=== PATIENT | male | born 1960 | race Caucasian/White ===

== ENCOUNTER 2018-07-07 11:50 | Observation (INO) | payer BC ==
[2018-07-07] MEDS ORDERED: MORPHINE SULFATE 4 MG/ML SYRINGE IVP STA (12:27)
--- NOTE | 2018-07-07 13:23 | ED ---
Lower Extremity Injury HPI <Marcelo Ortega - Last Filed: 07/07/18 14:48> - General Source: patient Mode of arrival: ambulatory Limitations: no limitations <Lucy Burgess - Last Filed: 07/07/18 15:43> - General Chief Complaint: Extremity Injury, Lower Stated Complaint: Ankle injury Time Seen by Provider: 07/07/18 12:20 - History of Present Illness Initial Comments: 58-year-old male past medical history of hypertension presenting today for chief complaint of right ankle pain. Patient states that 2 nights ago he had slipped on ice twisting his right ankle. Patient states he present to the urgent care clinic where x-rays were obtained, he states he was told he had 3 fractures one of his fibula, tibia and talus. Patient states he was told to immediately go to the emergency department for evaluation, patient states he did not want to at that time and went home. Patient was not splinted. Patient states that he decided to presents today for evaluation of ankle. Patient amidst to swelling of the right ankle, patient states she is able to wiggle his toe has full sensation. Patient denies any paleness or coolness of the extremity. Patient denies any injury to his back and neck or head he denies loss of consciousness or head injury. Patient denies any injury to the chest good patient states his main injury was the right ankle. Upon arrival patient is being ambulated via wheel chair, gross deformity of the right ankle. Remaining ROS (-), patient denies any recent fever, chills, shortness of breath , chest pain, back pain, abdominal pain, nausea or vomiting, numbness or tingling, dysuria or hematuria, constipation or diarrhea, headaches or visual changes, or any other complaints. (Lucy Burgess) - Related Data Allergies Allergy/AdvReac Type Severity Reaction Status Date / Time Penicillins Allergy Unknown Verified 07/07/18 11:59 Review of Systems ROS Other: All systems not noted in ROS Statement are negative. <Marcelo Ortega - Last Filed: 07/07/18 14:48> ROS Other: All systems not noted in ROS Statement are negative. <Lucy Burgess - Last Filed: 07/07/18 15:43> ROS Statement: Those systems with pertinent positive or pertinent negative responses have been documented in the HPI. Past Medical History Past Medical History: Hyperlipidemia Additional Past Medical History / Comment(s): 3 cervical compressed vertabrae History of Any Multi-Drug Resistant Organisms: None Reported Past Surgical History: No Surgical Hx Reported, Orthopedic Surgery Past Psychological History: No Psychological Hx Reported Smoking Status: Current every day smoker Past Alcohol Use History: Occasional Past Drug Use History: None Reported <Lucy Burgess - Last Filed: 07/07/18 15:43> General Exam <Marcelo Ortega - Last Filed: 07/07/18 14:48> Limitations: no limitations <Lucy Burgess - Last Filed: 07/07/18 15:43> - General Exam Comments Initial Comments: General: The patient is awake and alert, in no distress, and does not appear acutely ill. Eye: Pupils are equal, round and reactive to light, extra-ocular movements are intact. No nystagmus. There is normal conjunctiva bilaterally. No signs of icterus. Ears, nose, mouth and throat: There are moist mucous membranes and no oral lesions. No midline tenderness to palpation of the cervical, thoracic or lumbar spine there is no paravertebral tenderness. Full ROM at back and neck. Neck: The neck is supple, there is no tenderness or JVD. Cardiovascular: There is a regular rate and rhythm. No murmur, rub or gallop is appreciated. Respiratory: Lungs are clear to auscultation, respirations are non-labored, breath sounds are equal. No wheezes, stridor, rales, or rhonchi. Musculoskeletal: Upon inspection of the right ankle there is significant soft tissue swelling and ecchymosis, gross deformity of the ankle mortise. Small blister of the dorsum of the foot. Patient compartment of compressible history of sensation proximal and distal to injury. Patient is able to wiggle all 5 digits of the right foot. Capillary refill < 2 seconds. Used doppler for pulses , +2 b/l DP strong/brisk, swelling was obscuring the pulse initially of the right foot. Normal ROM, no tenderness of the left ankle. Strength 5/5 of the left ankle, knees and hips b/l. Pain does not appear out of proportion. Neurological: A&O x 3. CN II-XII intact, There are no obvious motor or sensory deficits. Coordination appears grossly intact. Speech is normal. Skin: Skin is warm and dry and no rashes or lesions are noted. Psychiatric: Cooperative, appropriate mood & affect, normal judgment. (Lucy Burgess) Vital Signs 07/07/18 07/07/18 07/07/18 12:00 14:18 14:27 Temperature 98.5 F Pulse Rate 78 68 73 Respiratory 18 16 16 Rate Blood Pressure 129/72 160/83 168/85 O2 Sat by Pulse 98 98 98 Oximetry 07/07/18 07/07/18 07/07/18 14:32 14:37 14:42 Temperature Pulse Rate 80 70 74 Respiratory 16 16 18 Rate Blood Pressure 175/88 166/95 156/90 O2 Sat by Pulse 100 100 100 Oximetry 07/07/18 07/07/18 14:47 15:08 Temperature Pulse Rate 71 75 Respiratory 16 16 Rate Blood Pressure 169/97 166/80 O2 Sat by Pulse 99 99 Oximetry Procedures - Orthopedic Fracture Reduction Fracture #1 Consent Obtained: verbal consent, written consent Side: right Fracture Reduction Location: tibia, fibula Analgesia: procedural sedation Technique: traction/counter-traction Post Reduction X-rays Demonstrate: other (Partial reduction) Post-Reduction Neuro Exam: intact Post-Reduction Vascular Exam: intact Splint Applied: Yes Patient Tolerated Procedure: well, no complications - Orthopedic Splinting/Casting Injury #1 Side: right Upper Extremity Immobilizer: sugar tong splint Lower Extremity Injury Location: short leg - Procedural Sedation Procedural Sedation Start Time: 14:28 Procedural Sedation Stop Time: 14:52 Indications: fracture/dislocation reduction Preparation: electrostatic paint operator applied, pulse oximeter IV Etomidate Dose (mgs): 16 Complications: none Interventions: oxygen applied Patient Tolerated Procedure: well, no complications <Marcelo Ortega - Last Filed: 07/07/18 14:48> Medical Decision Making <Marcelo Ortega - Last Filed: 07/07/18 14:48> <Lucy Burgess - Last Filed: 07/07/18 15:43> - Medical Decision Making 58-year-old male presenting today for ankle pain. There is significant soft tissue swelling. Patient neurovascularly intact. Gross deformity. X-ray revealed distorted ankle mortise as well as a trimalleolar fracture. Pt was consciously sedated by Dr. Ortega and we attempted reduction. Consent obtained prior, wrirten. Post reduction films did not appear sufficient. Minimal improvement. Pt remainded neurovascularly intact. I did contact on-call physician it administrative assistant at [facility]. He reviewed all imaging studies and I discussed physical examination findings as well as history of presenting illness. He then discussed case with Foot and ankle physician . Who recommended closed reduction in the OR by 5:30PM. Pt last ate at 10AM. Anesthesiology was contacted. Patient admitted to the floor pending closed reduction with possible need for external fixation. Patient is aware of procedure, agreeable with plan denied questions at this time. (Lucy Burgess) Disposition <Marcelo Ortega - Last Filed: 07/07/18 14:48> Is patient prescribed a controlled substance at d/c from ED?: No Time of Disposition: 14:46 <Lucy Burgess - Last Filed: 07/07/18 15:43> Clinical Impression: Trimalleolar fracture, Ankle dislocation Disposition: ADMITTED IP TO THIS HOSP
[2018-07-07] MEDS ORDERED: ETOMIDATE 2 MG/ML 10 ML VIAL IVP STA (13:54)
--- NOTE | 2018-07-07 13:59 | XR ---
EXAMINATION TYPE: XR knee complete RT DATE OF EXAM: 07/07/2018 CLINICAL HISTORY: Pain after fall injury. TECHNIQUE: Three views of the right knee are obtained. COMPARISON: None. FINDINGS: There is no acute fracture/dislocation evident in right knee. Mild to moderate tricompartm ent joint space loss is seen most prominent medial tibiofemoral compartment. Increased density suprap atellar bursa is consistent with small joint effusion. IMPRESSION: There is no acute fracture or dislocation in the right knee.
--- NOTE | 2018-07-07 14:01 | XR ---
EXAMINATION TYPE: XR ankle complete RT, XR foot complete RT DATE OF EXAM: 07/07/2018 CLINICAL HISTORY: Fall injury 3 days ago with pain. TECHNIQUE: Frontal, lateral and oblique images of the right ankle and foot are obtained. COMPARISON: None. FINDINGS: There is comminuted displaced fracture through lateral malleolus with posterior angulation and displacement of distal fracture fragment, slight impaction or overriding is seen. Posterior malle olus shows oblique displaced fracture seen best on lateral view. There is displaced fracture through the medial malleolus. There is mortise disruption with lateral tilting of the talus and abnormal medi al widening. Mild to moderate subcutaneous edema is present with more focal soft tissue swelling over lateral malleolus noted. No additional acute fracture or dislocation in right foot is seen. There is mild hallux valgus first metatarsophalangeal joint with mild to moderate joint space loss. There is tiny inferior calcaneal sp ur. Overlying soft tissue is unremarkable. IMPRESSION: There is acute trimalleolar fracture with mortise disruption. (Initial encounter closed type post traumatic fracture)
--- NOTE | 2018-07-07 15:00 | XR ---
EXAMINATION TYPE: XR ankle limited RT DATE OF EXAM: 07/07/2018 COMPARISON: Today HISTORY: Postreduction TECHNIQUE: 3 views. FINDINGS: There is trimalleolar fracture of the right ankle. There is posterior dislocation of the talus on the lateral view. Dislocation is slightly decreased compared to initial exam. IMPRESSION: Slight decrease in the posterior dislocation of the talus. Comminuted posterior trimalleo kristel fracture dislocation of the ankle joint.
[2018-07-07] MEDS ORDERED: HYDROmorphone 1 MG/ML 1 ML SYRINGE IVP STA (15:06)
[2018-07-07] MEDS ORDERED: ONDANSETRON 4 MG/2 ML VIAL IVP PRN (15:24)
[2018-07-07] MEDS ORDERED: NALOXONE 0.4 MG/ML 1 ML VIAL IV PRN (15:24)
[2018-07-07] MEDS ORDERED: MORPHINE SULFATE 4 MG/ML SYRINGE IV PRN (15:24)
[2018-07-07] MEDS ORDERED: SODIUM CHLORIDE 0.9% 1,000 ML IV SCH (15:30)
[2018-07-07] MEDS ORDERED: NICOTINE 21MG/24HR PATCH TRANSDERM STA (15:38)
--- NOTE | 2018-07-07 17:11 | P.HPOR ---
History of Present Illness H&P Date: 07/07/18 The patient is a very pleasant 58-year-old male with a medical history significant being a current every day cigarette smoker who sustained an isolated injury to his right ankle 2 days ago. On evening he slipped on some ice and twisted his ankle. He heard a pop and was unable to ambulate. He went to an urgent care where x-rays were taken and he was told he had an ankle fracture. The patient was advised to go to the emergency department but went home instead without a splint. He presented to our ER earlier today where an attempt was made at a closed reduction and splinting. Postreduction x-rays showed persistent posterior subluxation of the ankle. Orthopedics was called. I met with the patient to discuss options. My recommendation was to take him to the operating room for an attempt at closed reduction and splinting and possibly placement of an external fixator. The patient understands that this is part of a staged procedure. Past Medical History Past Medical History: Hyperlipidemia Additional Past Medical History / Comment(s): 3 cervical compressed vertabrae History of Any Multi-Drug Resistant Organisms: None Reported Past Surgical History: No Surgical Hx Reported, Orthopedic Surgery Past Psychological History: No Psychological Hx Reported Smoking Status: Current every day smoker Past Alcohol Use History: Occasional Past Drug Use History: None Reported Medications and Allergies Home Medications Medication Instructions Recorded Confirmed Type Escitalopram Oxalate [Lexapro] 10 mg PO DAILY 07/07/18 07/07/18 History Fenofibrate 160 mg PO DAILY 07/07/18 07/07/18 History Hydrocodone/Acetaminophen [[place] 1 tab PO Q68H PRN 07/07/18 07/07/18 History 10-325] Morphine Sulfate [Ms Contin] 30 mg PO Q12HR 07/07/18 07/07/18 History Naproxen [Naprosyn] 500 mg PO BID 07/07/18 07/07/18 History Allergies Allergy/AdvReac Type Severity Reaction Status Date / Time Penicillins Allergy Unknown Verified 07/07/18 15:51 Physical Examination The patient is alert and able to answer questions. His head is normocephalic and atraumatic. He demonstrates nonlabored breathing symmetric chest expansion. A focused examination of the right lower extremity was conducted. On inspection there is a splint in place. The tips of the toes are warm and well perfused with brisk capillary refill. Sensation is intact to light touch at the tip of the toes. He is able to actively move his toes up and down. Results X-rays of the right ankle show a displaced bimalleolar ankle fracture dislocation with persistent posterior subluxation of the talus on the postreduction lateral view. Assessment and Plan (1) Trimalleolar fracture Current Visit: Yes Status: Acute Code(s): S82.853A - DISPLACED TRIMALLEOLAR FRACTURE OF UNSP LOWER LEG, INIT SNOMED Code(s): 129684677 Plan: I met with the patient and his to discuss his injury and treatment options. My recommendation was to take him to the operating room for an attempted closed reduction and splinting versus application of an ankle spanning external fixator. The patient and his understand that this will be part of a staged procedure and he will need formal open reduction and internal fixation of his ankle once his soft tissue swelling subsides. Once the ankle is reduced either in a splint or external fixator we will get a computed tomography scan to help with preoperative planning. The patient can discharge home tonight if he is comfortable.
[2018-07-07] MEDS ORDERED: PROPOFOL 10 MG/ML 20 ML VIAL IV ONE (17:19)
[2018-07-07] MEDS ORDERED: fentaNYL (PF) 50 MCG/ML 2 ML AMP ONE (17:19)
[2018-07-07] MEDS ORDERED: MIDAZOLAM 2 MG/2 ML VIAL ONE (17:19)
[2018-07-07] MEDS ORDERED: LIDOCAINE 1% INJ 10MG/ML (20 ML MDV) ONE (17:19)
[2018-07-07] MEDS ORDERED: SUCCINYLCHOLINE CHLORIDE 100 MG/5 ML SYR IV ONE (17:19)
[2018-07-07] MEDS ORDERED: LACTATED RINGERS 1,000 ML IV ONE (17:19)
[2018-07-07] MEDS ORDERED: SILVER sulfADIAZINE Cream 400 GM 1 APPLIC APPLIC TOPICAL ONE (17:35)
--- NOTE | 2018-07-07 17:58 | P.OP ---
Date of Procedure: 07/07/18 Preoperative Diagnosis: 1. Right trimalleolar ankle fracture 2. Current every day cigarette smoker Postoperative Diagnosis: Same Procedure(s) Performed: Closed reduction of trimalleolar ankle fracture and application of short leg splint by physician as part of a staged procedure Anesthesia: ROMAN Surgeon: Hudson Kingsley Estimated Blood Loss (ml): 0 IV fluids (ml): 300 Condition: stable Disposition: PACU Indications for Procedure: The patient is a very pleasant 58-year-old male with a medical history significant for smoking cigarettes who presents 2 days out from a try malleolus ankle fracture dislocation. He underwent attempt at closed reduction in the emergency department. There were unable to obtain and maintain a closed reduction in the splint. The patient was admitted under my care for observation. I met with the patient and his to discuss treatment options. We are going to attempt a closed reduction and splinting versus an external fixator in the operating room. We discussed potential risks and complications of this and they're well aware of all the potential risks and complications. They also understand that this is part of a staged procedure and that he will ultimately need open reduction and internal fixation once his soft tissue swelling resolves. They also understand these at a higher risk of having a complication due to his current cigarette smoking Operative Findings: There was a serous filled fracture blister over the anteromedial aspect of the ankle and tense swelling of the skin. I was able to obtain a concentric reduction and maintain the reduction and a well-molded bulky Ortega splint. Description of Procedure: I met with the patient and his in preoperative holding. We discussed the procedure at length. The patient's right leg was marked with my initials. I reviewed the consent form with the patient and his and all their questions were answered. The patient was then brought back to the operating room. He was transferred onto an or table or an anesthetic was administered. A timeout was performed identifying the correct patient, operative extremity, and procedure. The patient's leg was then taken out of the splint. On inspection there was tense swelling and a serous blister. The serous blister was unroofed and a Silvadene dressing was applied area a gentle closed reduction was performed using the Silvana maneuver. The ankle was easily able to be reduced. A well-padded bulky Ortega splint was placed. A varus mold was applied to the splint as the plaster set along with an anteriorly directed force on the heel. The splint was molded while it set holding the reduction. After the splint had completely set fluoroscopic images were taken verifying that the talus was concentrically reduced under the tibial plafond done both a mortise and lateral view. I was happy with the reduction and did not feel he needed an external fixator. The patient was then transferred back onto a gurney and brought to recovery having to the procedure well. Plan: The patient is going to be transferred back to the floor. I will obtain a computed tomography scan of the ankle both to evaluate the reduction and help with preoperative planning. If the ankle is reduced the patient will be discharged home with instructions for strict elevation and nonweightbearing on his right leg will soft tissue swelling resolves. We'll plan on seeing him back in 1 week for surgical planning. If the ankle is dislocated in the splint he may need return to the operating room for a formal external fixator placement.
[2018-07-07] MEDS: HYDROmorphone 1 MG/ML 1 ML SYRINGE IVP ONE ×2 (18:03→18:09)
[2018-07-07] MEDS ORDERED: KETOROLAC 30 MG/ML 1 ML VIAL IVP ONE (18:09)
[2018-07-07 19:02] VITALS: TEMP 98.5
[2018-07-07 19:04] VITALS: RESP 18
[2018-07-07 19:05] VITALS: BP 153/84; PULSE 72
--- NOTE | 2018-07-07 20:09 | CT ---
CT scan of the right ankle. History ankle fracture. Comparison none. TECHNIQUE: Multiple axial sections were obtained from the distal tibia to the bottom of the calcaneus with no co ntrast. FINDINGS: There is a 2.5 x 1 cm chip fracture of the posterior malleolus without significant displacement. Ther e is comminuted fracture of the medial malleolus without significant displacement. Ankle mortise is a natomic. There is no dislocation. There is comminuted spiral fracture distal fibula. There is mild so ft tissue swelling. The talus appears intact. The subtalar joint appears normal. There is a small lou ntar calcaneal spur. The tarsal bones are intact. Talonavicular joint is intact. IMPRESSION: Comminuted trimalleolar fracture of the ankle. No dislocation. Soft tissue swelling.
--- NOTE | 2018-07-08 13:22 | XR ---
EXAMINATION TYPE: XR ankle limited RT, [place] guidance operating room DATE OF EXAM: 07/07/2018 COMPARISON: NONE HISTORY: 58-year-old male closed reduction right ankle FINDINGS: AP and lateral intraoperative views with overlying cast of the right ankle fractures. FLUOROSCOPY Fluoroscopy time of 11 seconds was used during closed reduction of ankle fractures. 2 image/s docume nt/s the procedure. IMPRESSION: Intraoperative fluoroscopy as above during closed reduction.
== END 2018-07-07 20:20 | disposition home or self-care (01) ==
LOC: EC 11:50 → 4SSUR 15:17
PROVIDERS: ADMIT Orthopaedic Surgery; ATTEND Orthopaedic Surgery
DX: S82.851A Displaced trimalleolar fracture of right lower leg, initial encounter for closed fracture (principal); F17.210 Nicotine dependence, cigarettes, uncomplicated; E78.5 Hyperlipidemia, unspecified; I10 Essential (primary) hypertension; W00.0XXA Fall on same level due to ice and snow, initial encounter; X50.1XXA Overexertion from prolonged static or awkward postures, initial encounter; Z79.899 Other long term (current) drug therapy; Z88.0 Allergy status to penicillin
CPT/HCPCS: 96374; 96375; 99285; 73562; 73600; 73610; 73630; 73700; 27818; G0378; S4990; J2250; J2270; J2001; J3010; J1885; J1170; J0330; J2704

== ENCOUNTER 2018-08-01 12:35 | Day surgery (SDC) | payer BC ==
[~2018-08-01 12:35] MED LIST: CLINDAMYCIN 900 MG in DEXTROSE 5% IN WATER 50 ML IVPB ONE
[2018-08-01] MEDS ORDERED: LACTATED RINGERS 1,000 ML IV ONE ×3 (13:22→18:16)
[2018-08-01] MEDS ORDERED: LIDOCAINE 1% 20 ML VIAL (10MG/ML) FOR IV START INTRADERMA ONE (13:23)
[2018-08-01] MEDS ORDERED: ONDANSETRON 4 MG/2 ML VIAL IVP ONE (13:25)
[2018-08-01] MEDS ORDERED: DEXAMETHASONE SOD PHOS (MDV) 100 MG/10 ML VIAL IVP ONE (13:26)
[2018-08-01] MEDS ORDERED: MIDAZOLAM 2 MG/2 ML VIAL IVP ONE (14:14)
[2018-08-01] MEDS ORDERED: fentaNYL (PF) 50 MCG/ML 2 ML AMP IVP ONE (14:14)
[2018-08-01] MEDS ORDERED: ROPIVACAINE 5 MG/ML 30 ML VIAL ONE (16:05)
[2018-08-01] MEDS ORDERED: fentaNYL (PF) 50 MCG/ML 2 ML AMP ONE (16:05)
[2018-08-01] MEDS ORDERED: PROPOFOL 10 MG/ML 20 ML VIAL IV ONE (16:05)
[2018-08-01] MEDS ORDERED: LIDOCAINE 1% INJ 10MG/ML (20 ML MDV) ONE (16:05)
[2018-08-01] MEDS ORDERED: MIDAZOLAM 2 MG/2 ML VIAL ONE (16:05)
[2018-08-01] MEDS ORDERED: NALOXONE 0.4 MG/ML 1 ML VIAL IV PRN (17:29)
[2018-08-01] MEDS ORDERED: HYDROmorphone 1 MG/ML 1 ML SYRINGE IVP PRN (17:29)
[2018-08-01] MEDS ORDERED: MAGNESIUM HYDROXIDE 2,400 MG/10 ML CUP PO PRN (17:29)
--- NOTE | 2018-08-01 17:42 | P.OP ---
Date of Procedure: 08/01/18 Preoperative Diagnosis: 1. Closed right trimalleolar ankle fracture dislocation 2. Current every day cigarette smoker 3. Chronic pain control issue currently on long-term narcotic use Postoperative Diagnosis: Same Procedure(s) Performed: 1. Open reduction and internal fixation of right lateral malleolus, nonoperative management of right posterior and medial malleolus fractures 2. Open reduction internal fixation of right ankle syndesmosis 3. Manual application of joint stress radiography by physician, right ankle 4. Application of short-leg splint by physician, right ankle Anesthesia: ROMAN Surgeon: Hudson Kingsley Fitness Supervisor #1: Twin Arvizu Estimated Blood Loss (ml): 25 IV fluids (ml): 1,200 Pathology: none sent Condition: stable Disposition: PACU Indications for Procedure: The patient is very pleasant 58-year-old male with a medical history significant for being a current every day cigarette smoker and having chronic narcotic pain requirements who was seen in the ER several weeks ago with an ankle fracture dislocation. He was taken to the operating room where a closed reduction and splint was applied. He followed up in the office and we discussed the need for operative treatment. We discussed the potential risks and complications of an ankle open reduction internal fixation including but not limited to risk of anesthesia, superficial infection, deep infection, delayed wound healing, nonunion of his fractures, malunion of his fractures, hardware failure, postoperative displacement of the ankle mortise, chronic pain, chronic swelling, and inability to regain preinjury level of function, DVT, PE, posttraumatic ankle arthritis, symptomatically hardware, and possibly loss of life or limb. The patient voiced his understanding of these potential complications and also acknowledged that he is at a much higher risk of having a complication due to his cigarette smoking. He was strongly encouraged to quit smoking. The patient was seen preoperatively and had both medical and cardiac clearance. The patient provided his verbal and written consent to go forward with surgery. Description of Procedure: The patient was identified in preoperative holding and the correct right ankles marked with my initials. I reviewed the consent form with the patient and his and all the questions were answered. The patient was given a popliteal and saphenous nerve block by anesthesia. He was then brought back to the operating room. He was positioned on the OR table where general anesthetic and preoperative antibiotics were administered. The right splint was taken down. There was wrinkling of the skin and complete resolution of the fracture blisters. A tourniquet was applied proximal aspect of the right leg. All bony prominences well-padded. A bump was placed under the right buttock to internally rotate the leg. A ramp was placed under the right leg to facilitate imaging. The right leg was then prepped and draped in standard sterile fashion. Prior to starting surgery timeout was performed identifying the correct patient, operative extremity, and procedure. The patient's leg was then elevated, exsanguinated with an Esmarch bandage, and the tourniquet was inflated to 250 mmHg. Next I began by outlining a straight lateral incision to the distal fibula. Skin incision with a scalpel and dissection was carried down carefully through subcu tissues tissue with tenotomy scissors. The periosteum and fascia over the peroneal muscles and distal fibula was sharply elevated with a scalpel. The fracture was immediately identified. There was early callus was sharply debrided with a scalpel. Proximally there was comminution of the distal fragments proximal spike. Once the fracture site was thoroughly debrided a gentle reduction was performed and a [id number] reduction clamp was used to mancia the fracture reduced. Clinically the fracture appeared to be anatomically reduced. Fluoroscopy was used to visualize the reduction. The fibula appeared to be out to length. I then placed a nonlocking 2.7 mm lag screw across the fracture generating excellent compression. I then contoured a distal fibular locking plate over the fibula. A nonlocking 3.5 mm screw was placed just proximal to the fracture bringing the plate down to bone. I then proceeded to place a second nonlocking 3.5 mm screw in the most proximal hole of the plate centering it on the distal fibula. Attention was then turned distally. A nonlocking 4.0 mm cancellous screws placed in the distal cluster of holes bringing the plate down to bone. I then proceeded to place an additional four locking 3.5 mm screws distally. A final nonlocking 3.5 mm screw was placed proximal to the fracture. Fluoroscopy visualized reduction of the fibula and placement of the hardware. At this point I elected not to proceed with open reduction internal fixation of the medial malleolus due to the significant amount of comminution seen on the preoperative CT and the minimal amount of displacement on intraoperative fluoroscopy as well as the patient's cigarette smoking and potential for delayed wound healing. The ankle mortise appeared anatomic. At this point I performed a manual external rotation stress x-ray and the ankle appeared stable. I elected to place a 4.0 mm syndesmotic screw for additional fixation due to the patient's age and cigarette smoking. A 2.[address] ill bit was used to create a path for a fully threaded, solid 4.0 mm cortical screw. At this point final fluoroscopic images were taken including a mortise view, manual external rotation stress x-ray, and nature talar dome overlap lateral. The ankle mortise appeared anatomically reduced on all views. The wounds were then copiously irrigated and closed in layers. I verified that all instrument, sponge, and sharp counts were correct. A sterile dressing consisting of Betadine Adaptic, 4 x 4, and web roll was applied. The drapes were taken down and a well-padded bulky Ortega splint was placed at the ankle in neutral. The patient was awoken from his anesthetic, transferred to a gurney, and brought to recovery having to the procedure well. Twin Arvizu PA-C was required as a skilled respiratory care assistant for patient positioning, surgical exposure, retraction, reduction of fracture, closure of wound, and application of splint. Plan: The patient was given the option of staying overnight due to his chronic narcotic dependence and likely need for pain control. The patient is comfortable and like to discharge home he was also given discharge instructions and I'm okay with him leaving tonight. His rate strictly nonweightbearing on his right leg. He is to use crutches or knee scooter to ambulate. He will follow-up in the office in 2 weeks for splint removal and nonweightbearing x- rays of the ankle out of the splint.
[2018-08-01] MEDS ORDERED: HYDROmorphone 1 MG/ML 1 ML SYRINGE IVP ONE ×4 (17:54→18:15)
[2018-08-01 19:13] VITALS: BMI 25.7
[2018-08-01] MEDS: HYDROcodone/APAP 10-325MG 1 EACH TAB PO PRN (21:39)
[2018-08-01] MEDS: SODIUM CHLORIDE 0.9% 1,000 ML IV SCH (22:23)
[2018-08-01] MEDS: NICOTINE 21MG/24HR PATCH TRANSDERM SCH (22:23)
[2018-08-01] MEDS: MORPHINE SULFATE ER 30 MG TABLET PO SCH (23:14)
[2018-08-01] MEDS: ceFAZolin IN SWFI 2 GM/20 ML SYRINGE IVP SCH (23:25)
[2018-08-02] MEDS ORDERED: ceFAZolin IN SWFI 2 GM/20 ML SYRINGE IVP SCH
[2018-08-02] MEDS: SODIUM CHLORIDE 0.9% 1,000 ML IV SCH (03:30)
[2018-08-02] MEDS: HYDROcodone/APAP 10-325MG 1 EACH TAB PO PRN ×2 (03:44→07:22)
[2018-08-02 07:45] VITALS: BP 146/81; PULSE 68; RESP 14; TEMP 98.5
[2018-08-02] MEDS: MORPHINE SULFATE ER 30 MG TABLET PO SCH (08:33)
[2018-08-02] MEDS: NICOTINE 21MG/24HR PATCH TRANSDERM SCH (08:34)
[2018-08-02] MEDS: ceFAZolin IN SWFI 2 GM/20 ML SYRINGE IVP SCH (08:34)
--- NOTE | 2018-08-02 08:54 | FL ---
EXAMINATION TYPE: FL guidance operating room DATE OF EXAM: 08/01/2018 HISTORY: Flouroscopy time 29 seconds of fluoroscopy provided. IMPRESSION: 1. Fluoroscopy time.
--- NOTE | 2018-08-02 08:54 | XR ---
EXAMINATION TYPE: XR ankle limited RT DATE OF EXAM: 08/01/2018 COMPARISON: NONE TECHNIQUE: Two views submitted HISTORY: Post op FINDINGS: There is postsurgical change in near anatomic alignment. There is soft tissue edema and emphysema. IMPRESSION: 1. Postoperative change. Appears in near-anatomic alignment
[2018-08-02] MEDS ORDERED: ENOXAPARIN 30 MG/0.3 ML SYRINGE SQ SCH (09:00)
[2018-08-02] MEDS ORDERED: MULTIVITAMINS, THERA 1 EACH TAB PO SCH (12:00)
--- NOTE | 2018-08-02 17:47 | P.DS ---
Providers Expected date of discharge: 08/02/18 Attending physician: Hudson Kingsley Primary care physician: Jamel De León [facility] Course: The patient is a 58-year-old male with a medical history significant for being a current every day cigarette smoker and having chronic narcotic pain requirements who was seen in the ER several weeks ago with an ankle fracture dislocation. He was taken to the operating room where a closed reduction and splint was applied by Dr. Kingsley. He followed up in our office and and the decision was made to move forward with operative treatment. The patient underwent an open reduction and internal fixation of right lateral malleolus, with nonoperative management of right posterior and medial malleolus fractures, on 08/01/[address] Kingsley. The procedure was performed without complication or sequelae. The patient is doing fairly well postoperatively. Vital signs stable on postoperative day #1. The patient was given the option of being discharged following the procedure, or being admitted for pain control. The patient was admitted overnight for pain control, and was subsequently discharged this morning before an examination was performed. Per nursing, the patient had been up with therapy with no issues. His pain is well-controlled. There was a small amount of blood on his splint overnight, nursing applied a new KAVEH banadge overnight with no additional saturation. Patient is discharged home in good condition. Patient will follow-up with Dr. Kingsley in the office in 2 weeks. Please see med rec for accurate list of discharge medication. Patient Condition at Discharge: Fair Plan - Discharge Summary Discharge Rx Participant: No New Discharge Prescriptions: New Hydrocodone/Acetaminophen [[place] 10-325] 1 tab PO Q4H PRN 14 Days #40 tab PRN Reason: Pain oxyCODONE HCL/ACETAMINOPHEN [Percocet 5-325 mg] 1 tab PO Q4HR PRN 3 Days #18 tab PRN Reason: Pain Aspirin 325 mg PO BID 28 Days tab No Action Hydrocodone/Acetaminophen [[place] 10-325] 1 tab PO Q68H PRN PRN Reason: Pain Fenofibrate 160 mg PO DAILY Naproxen [Naprosyn] 500 mg PO BID Morphine Sulfate [Ms Contin] 30 mg PO Q12HR Escitalopram Oxalate [Lexapro] 10 mg PO DAILY Discharge Medication List Escitalopram Oxalate [Lexapro] 10 mg PO DAILY 07/07/18 [History] Fenofibrate 160 mg PO DAILY 07/07/18 [History] Hydrocodone/Acetaminophen [[place] 10-325] 1 tab PO Q68H PRN 07/07/18 [History] Morphine Sulfate [Ms Contin] 30 mg PO Q12HR 07/07/18 [History] Naproxen [Naprosyn] 500 mg PO BID 07/07/18 [History] Aspirin 325 mg PO BID 28 Days tab 08/01/18 [Rx] Hydrocodone/Acetaminophen [[place] 10-325] 1 tab PO Q4H PRN 14 Days #40 tab 08/01/18 [Rx] oxyCODONE HCL/ACETAMINOPHEN [Percocet 5-325 mg] 1 tab PO Q4HR PRN 3 Days #18 tab 08/01/18 [Rx] Follow up Appointment(s)/Referral(s): Jamel Rg MD [Primary Care Provider] - 1 Week (Please call office ) Hudson Kingsley MD [Medical Doctor] - 08/16/18 2:30 pm Patient Instructions/Handouts: ORIF of an Ankle Fracture (DC) Activity/Diet/Wound Care/Special Instructions: 1. No weightbearing on his operative extremity 2. Use crutches or knee scooter to ambulate 3. Do not remove splint 4. keep splint clean and dry 5. Ice and elevate your operative leg 6. Take pain medications as prescribed 7. Take a stool softener and drink lots of water while taking narcotic pain medications 8. Take an aspirin 325 mg twice a day to lower your risk of blood clot 9. Follow-up in the office in 14 days Discharge Disposition: HOME SELF-CARE
== END 2018-08-02 11:05 | disposition home or self-care (01) ==
LOC: OR 12:35 → 4SSUR 18:10 → OR 08-02 11:05
PROVIDERS: ATTEND Orthopaedic Surgery
DX: S82.851A Displaced trimalleolar fracture of right lower leg, initial encounter for closed fracture (principal); F17.210 Nicotine dependence, cigarettes, uncomplicated; G89.29 Other chronic pain; Z79.82 Long term (current) use of aspirin; Z79.891 Long term (current) use of opiate analgesic
CPT/HCPCS: 27822; 27829; 97161; 73600; C1713; S4990 ×2; J2250; J2405; J2001; J3010; J1650; J1170 ×2; J1100; J2795; J2704; J0690 ×2; 64493

== ENCOUNTER 2019-12-18 17:18 | Emergency (ER) | payer BC ==
[2019-12-18 17:26] VITALS: TEMP 99.1
[2019-12-18] MEDS ORDERED: SODIUM CHLORIDE 0.9% 1,000 ML IV STA (17:39)
[2019-12-18] MEDS ORDERED: MAG HYDROX/AL HYDROX/SIMETH 30 ML, HYOSCYAMINE ELIXIR 10 ML PO STA ×2 (17:39)
--- NOTE | 2019-12-18 18:04 | ED ---
Abdominal Pain HPI - General Chief Complaint: Abdominal Pain Stated Complaint: abd pain/swelling Time Seen by Provider: 12/18/19 17:36 Source: patient, RN notes reviewed Mode of arrival: ambulatory Limitations: no limitations - History of Present Illness Initial Comments: This is a 59-year-old male presents emergency Department from senior care for evaluation of abdominal pain. He's been having increasing left-sided abdominal pain. Patient denies any vomiting states that some slight nausea and reflux. Denies any chest pain or shortness of breath. No diarrhea no constipation. He's had no prior abdominal surgeries. Patient has no dysuria no hematuria. Patient states nothing really makes his pain feel better or worse at this time. - Related Data Home Medications Medication Instructions Recorded Confirmed Escitalopram Oxalate [Lexapro] 10 mg PO DAILY 07/07/18 08/01/18 Fenofibrate 160 mg PO DAILY 07/07/18 08/01/18 Hydrocodone/Acetaminophen [[place] 1 tab PO Q68H PRN 07/07/18 08/01/18 10-325] Morphine Sulfate [Ms Contin] 30 mg PO Q12HR 07/07/18 08/01/18 Naproxen [Naprosyn] 500 mg PO BID 07/07/18 08/01/18 Previous Rx's Medication Instructions Recorded Aspirin 325 mg PO BID 28 Days tab 08/01/18 Hydrocodone/Acetaminophen [[place] 1 tab PO Q4H PRN 14 Days #40 tab 08/01/18 10-325] oxyCODONE HCL/ACETAMINOPHEN 1 tab PO Q4HR PRN 3 Days #18 tab 08/01/18 [Percocet 5-325 mg] Omeprazole [PriLOSEC] 40 mg PO DAILY #14 cap 12/18/19 Allergies Allergy/AdvReac Type Severity Reaction Status Date / Time Penicillins Allergy Unknown Verified 12/18/19 17:23 Review of Systems ROS Statement: Those systems with pertinent positive or pertinent negative responses have been documented in the HPI. ROS Other: All systems not noted in ROS Statement are negative. Past Medical History Past Medical History: Hyperlipidemia Additional Past Medical History / Comment(s): 3 cervical compressed vertabrae History of Any Multi-Drug Resistant Organisms: None Reported Past Surgical History: Orthopedic Surgery Additional Past Surgical History / Comment(s): orif right ankle Past Anesthesia/Blood Transfusion Reactions: No Reported Reaction Past Psychological History: No Psychological Hx Reported Smoking Status: Current every day smoker Past Alcohol Use History: Occasional Past Drug Use History: None Reported - Past Family History Mother Family Medical History: Cancer Additional Family Medical History / Comment(s): from colon cancer Father Additional Family Medical History / Comment(s): heart problems when was young General Exam Limitations: no limitations General appearance: alert, in no apparent distress Head exam: Present: atraumatic, normocephalic, normal inspection Eye exam: Present: normal appearance, PERRL, EOMI. Absent: scleral icterus, conjunctival injection, periorbital swelling Respiratory exam: Present: normal lung sounds bilaterally. Absent: respiratory distress, wheezes, rales, rhonchi, stridor Cardiovascular Exam: Present: regular rate, normal rhythm, normal heart sounds. Absent: systolic murmur, diastolic murmur, rubs, gallop, clicks GI/Abdominal exam: Present: soft, tenderness (Mild epigastric to left upper quadrant tenderness), normal bowel sounds. Absent: distended, guarding, rebound, rigid Back exam: Absent: CVA tenderness (R), CVA tenderness (L) Neurological exam: Present: alert, oriented X3 Skin exam: Present: warm, dry, intact, normal color. Absent: rash Course Vital Signs 12/18/19 12/18/19 17:23 19:03 Temperature 99.1 F Pulse Rate 85 63 Respiratory 16 17 Rate Blood Pressure 160/90 176/90 O2 Sat by Pulse 99 97 Oximetry Medical Decision Making - Medical Decision Making Patient has mild pancreatitis on labs CT is obtained has no history of sig nificant findings. Patient does feel improved after GI cocktail. 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 Patient will follow up outpatient - Lab Data Result diagrams: 12/18/19 17:46 12/18/19 17:46 Lab Results 12/18/19 12/18/19 12/18/19 Range/Units 17:46 17:46 17:46 WBC 8.4 (3.8-10.6) k/uL RBC 3.68 L (4.30-5.90) m/uL Hgb 12.3 L (13.0-17.5) gm/dL Hct 37.8 L (39.0-53.0) % MCV 102.8 H (80.0-100.0) fL MCH 33.4 (25.0-35.0) pg MCHC 32.5 (31.0-37.0) g/dL RDW 12.4 (11.5-15.5) % Plt Count 341 (150-450) k/uL Neutrophils % 55 % Lymphocytes % 29 % Monocytes % 8 % Eosinophils % 4 % Basophils % 1 % Neutrophils # 4.6 (1.3-7.7) k/uL Lymphocytes # 2.4 (1.0-4.8) k/uL Monocytes # 0.7 (0-1.0) k/uL Eosinophils # 0.4 (0-0.7) k/uL Basophils # 0.1 (0-0.2) k/uL Macrocytosis Slight Sodium 138 (137-145) mmol/L Potassium 4.2 (3.5-5.1) mmol/L Chloride 109 H (98-107) mmol/L Carbon Dioxide 22 (22-30) mmol/L Anion Gap 7 mmol/L BUN 5 L (9-20) mg/dL Creatinine 0.74 (0.66-1.25) mg/dL Est GFR (CKD-EPI)AfAm >90 (>60 ml/min/1.73 sqM) Est GFR (CKD-EPI)NonAf >90 (>60 ml/min/1.73 sqM) Glucose 112 H (74-99) mg/dL Calcium 10.3 H (8.4-10.2) mg/dL Total Bilirubin 0.2 (0.2-1.3) mg/dL AST 31 (17-59) U/L ALT 52 H (4-49) U/L Alkaline Phosphatase 126 (38-126) U/L Total Protein 6.8 (6.3-8.2) g/dL Albumin 4.3 (3.5-5.0) g/dL Amylase 80 (30-110) U/L Lipase 405 H (23-300) U/L Urine Color Light Yellow Urine Appearance Clear (Clear) Urine pH 7.0 (5.0-8.0) Ur Specific [place] 1.008 (1.001-1.035) Urine Protein Negative (Negative) Urine Glucose (UA) Negative (Negative) Urine Ketones Negative (Negative) Urine Blood Negative (Negative) Urine Nitrite Negative (Negative) Urine Bilirubin Negative (Negative) Urine Urobilinogen <2.0 (<2.0) mg/dL Ur Leukocyte Esterase Negative (Negative) Disposition Clinical Impression: Abdominal pain, Pancreatitis, Gastritis Disposition: HOME SELF-CARE Condition: Stable Instructions (If sedation given, give patient instructions): Abdominal Pain (ED) Additional Instructions: Please return to the Emergency Department if symptoms worsen or any other concerns. Prescriptions: Omeprazole [PriLOSEC] 40 mg PO DAILY #14 cap Is patient prescribed a controlled substance at d/c from ED?: No Referrals: Jamel Rg MD [Primary Care Provider] - 1-2 days Time of Disposition: 20:05
[2019-12-18 18:13] LABS: ALT 52 U/L (4-49); AST 31 U/L (17-59); African American GFR (CKD) >90 (>60 ml/min/1.73 sqM); Albumin 4.3 g/dL (3.5-5.0); Alkaline Phosphatase 126 U/L (38-126); Amylase 80 U/L (30-110); Anion Gap 7 mmol/L; Blood Urea Nitrogen 5 mg/dL (9-20); Calcium 10.3 mg/dL (8.4-10.2); Carbon Dioxide 22 mmol/L (22-30); Chloride 109 mmol/L (98-107); Glucose 112 mg/dL (74-99); Non-African American GFR(CKD) >90 (>60 ml/min/1.73 sqM); Potassium 4.2 mmol/L (3.5-5.1); Sodium 138 mmol/L (137-145); Total Bilirubin 0.2 mg/dL (0.2-1.3); Total Protein 6.8 g/dL (6.3-8.2)
--- NOTE | 2019-12-18 18:22 | XR ---
EXAMINATION TYPE: XR KUB DATE OF EXAM: 12/18/2019 6:07 PM CLINICAL HISTORY: Left upper abdominal pain and bloating for 3 days. TECHNIQUE: Two Upright KUB images of the abdomen are obtained. COMPARISON: None. FINDINGS: Scattered gas is seen in non-distended stomach and small bowel loops. Gas and fecal materia l is seen in non-distended colon. There is no visceromegaly, pneumoperitoneum, or abnormal calcificat ion appreciated. The lung bases are clear. Multilevel spurring in the lumbar spine. Moderate to sever e axial joint space loss in both hips. IMPRESSION: Overall nonobstructive bowel gas pattern.
[2019-12-18 18:24] LABS: Basophils # (A) 0.1 k/uL (0-0.2); Basophils % (A) 1 %; Eosinophils # (A) 0.4 k/uL (0-0.7); Eosinophils % (A) 4 %; HCT 37.8 % (39.0-53.0); HGB 12.3 gm/dL (13.0-17.5); Lymphocytes # (A) 2.4 k/uL (1.0-4.8); Lymphocytes % (A) 29 %; MCH 33.4 pg (25.0-35.0); MCHC 32.5 g/dL (31.0-37.0); MCV 102.8 fL (80.0-100.0); Macrocytosis Slight; Monocytes # (A) 0.7 k/uL (0-1.0); Monocytes % (A) 8 %; Neutrophils # (A) 4.6 k/uL (1.3-7.7); Neutrophils % (A) 55 %; Platelet Count 341 k/uL (150-450); RBC 3.68 m/uL (4.30-5.90); RDW 12.4 % (11.5-15.5); WBC 8.4 k/uL (3.8-10.6)
[2019-12-18 18:31] LABS: Appearance,Urine Clear (Clear); Bilirubin,Urine Negative (Negative); Blood,Urine Negative (Negative); Color,Urine Light Yellow; Glucose,Urine (UA) Negative (Negative); Ketones,Urine Negative (Negative); Leukocyte Esterase,Urine Negative (Negative); Nitrite,Urine Negative (Negative); Protein,Urine Negative (Negative); Specific Gravity,Urine 1.008 (1.001-1.035); Urobilinogen,Urine <2.0 mg/dL (<2.0)
[2019-12-18 19:04] VITALS: BP 176/90; PULSE 63; RESP 17
--- NOTE | 2019-12-18 19:39 | CT ---
EXAMINATION TYPE: CT abdomen pelvis w con DATE OF EXAM: 12/18/2019 COMPARISON: None. HISTORY: Left upper quadrant pain and bulge. CT DLP: 1364.1 mGycm, Automated Exposure Control for Dose Reduction was Utilized. CONTRAST: CT scan of the abdomen and pelvis is performed with oral and with IV Contrast, patient injected with 100 mL of Isovue 300. FINDINGS: LUNG BASES: Dependent atelectasis bilateral bases. Mild cardiomegaly. LIVER/GB: Contracted gallbladder. PANCREAS: No significant abnormality is seen. SPLEEN: No significant abnormality is seen. ADRENALS: No significant abnormality is seen. KIDNEYS: Symmetric cortical medullary uptake and excretion without hydronephrosis seen bilaterally. U rinary bladder within normal limits. Few scattered pelvic phleboliths. BOWEL: Suboptimal evaluation without enteric contrast. No suspicious small or large bowel dilatation. A few scattered colonic diverticula greatest in the sigmoid colon without CT evidence for acute dive rticulitis. Normal-appearing appendix from the cecum in the right lower quadrant. PROSTATE/SEMINAL VESICLES: No gross abnormality seen. LYMPH NODES: No greater than 1cm abdominal or pelvic lymph nodes are appreciated. OSSEOUS STRUCTURES: Hemangioma involving the L4 vertebra. [id number] multilevel anterior and la teral spurring. Facet arthropathy lower lumbar spine. Moderate to severe narrowing with flattening of femoral head in both hips. OTHER: No suspicious ventral wall hernia defect. No concerning mass or fluid collection in the left a nterior abdomen. Moderate mixed plaque of the aorta extending into branch vessels. Significant narrowing at origin of celiac artery sagittal image 82. Correlate for celiac artery compression syndrome. IMPRESSION: No significant acute finding is seen to account for patient's clinical symptoms. 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 Advise nonemerg ent surgical referral .
== END 2019-12-18 20:15 | disposition home or self-care (01) ==
LOC: EC 17:18
DX: K85.90 Acute pancreatitis without necrosis or infection, unspecified (principal); K29.70 Gastritis, unspecified, without bleeding; E78.5 Hyperlipidemia, unspecified; F17.200 Nicotine dependence, unspecified, uncomplicated; Z79.899 Other long term (current) drug therapy; Z88.0 Allergy status to penicillin
CPT/HCPCS: 36415; 80053; 82150; 83690; 85025; 81003; 74018; 74177; 99284; 96360; 96361; Q9967

== ENCOUNTER → 2022-09-02 | Outpatient (CLI) | payer BC ==
--- NOTE | 2022-09-02 10:42 | CTL ---
EXAMINATION TYPE: CT Low Dose Lung DATE OF EXAM ORDERED: 09/02/2022 HISTORY: . Lung cancer screening CT DLP: 96.[address] CTDI: 2.60 mGy Automated exposure control for dose reduction was used. SCREENING VISIT: COMPARISON: None TECHNIQUE: Low dose computed tomography scan was performed through the chest at 1 mm thick sections a nd reconstructed images in multiple planes at 1 mm and [address] DIAGNOSTIC QUALITY: Satisfactory FINDINGS: There is a 2 mm nodule in the right upper lobe axial image 161 There is a 2 mm nodule in the subpleural right upper lobe axial image 191. Biapical pleural thickening with groundglass changes seen involving the posterior lung bases are felt to be most likely on the basis of respiratory atelectasis. No focal pneumonia, pleural effusion or p neumothorax. There is a coronary artery stent. Aorta of normal caliber with mild atherosclerotic changes. Heart si ze normal. Hyperinflation suggests COPD. IMPRESSION: 1. COPD was sub-5 mm pulmonary nodules which have a benign appearance. CT LUNG RAD AND CT CHEST RECOMMENDATION: Lung-Rad 2 Benign Appearance or Behavior: Continue annual sc reening with LDCT in 12 months.
== END | disposition home or self-care (01) ==
LOC: RADCTMAIN 09:23
PROVIDERS: ATTEND Family Medicine
DX: Z12.2 Encounter for screening for malignant neoplasm of respiratory organs (principal); J44.9 Chronic obstructive pulmonary disease, unspecified; R91.8 Other nonspecific abnormal finding of lung field; F17.210 Nicotine dependence, cigarettes, uncomplicated
CPT/HCPCS: 71271

== ENCOUNTER 2023-07-22 10:49 | Emergency (ER) | payer BC ==
[2023-07-22 11:30] VITALS: TEMP 98.7
--- NOTE | 2023-07-22 11:33 | ED ---
Weakness HPI - General Chief complaint: Weakness Stated complaint: Dehydration, Tonsil CA PT Time Seen by Provider: 07/22/23 11:02 Source: patient, family, RN notes reviewed Mode of arrival: ambulatory Limitations: no limitations - History of Present Illness Initial comments: 63-year-old male presents emergency department with chief complaint of weakness. 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 Jennings. Patient states he has had biopsies but no other surgeries. Patient has been receiving chemotherapy and radiation. He was unable to complete his chemotherapy last Monday because his weakness this was possibly his last round. Patient states that he cannot keep his medications down he has been vomiting states he has whitish to clear phlegm. He states the pain has worsened. He states his blood pressure has been low and has been super weak feeling. Denies any reports of fever. - Related Data Home Medications Medication Instructions Recorded Confirmed Escitalopram Oxalate [Lexapro] 10 mg PO DAILY 07/07/18 07/14/23 Morphine Sulfate [Ms Contin] 30 mg PO Q12HR 07/07/18 07/14/23 Naproxen [Naprosyn] 500 mg PO BID PRN 07/07/18 07/14/23 Atorvastatin [Lipitor] 1 tab PO DAILY 05/23/23 07/14/23 Ezetimibe [Zetia] 1 tab PO DAILY 05/23/23 07/14/23 HYDROcodone/APAP 7.5-325MG [[place] 1 tab PO DIRECTED PRN 05/23/23 07/14/23 7.5-325] Metoprolol Succinate [Metoprolol 1 tab PO DAILY 05/23/23 07/14/23 Succinate ER] Ondansetron [Zofran] 1 tab PO DIRECTED PRN 05/23/23 07/14/23 gemfibroziL [Lopid] 1 tab PO BID 05/23/23 07/14/23 lisinopriL [Zestril] 1 tab PO DAILY 05/23/23 07/14/23 Previous Rx's Medication Instructions Recorded Aspirin 325 mg PO BID 28 Days tab 08/01/18 Omeprazole [PriLOSEC] 40 mg PO DAILY #14 cap 12/18/19 Azithromycin [Zithromax Z Pack] 0 tab PO DIRECTED #6 tab 07/22/23 Allergies Allergy/AdvReac Type Severity Reaction Status Date / Time Penicillins Allergy Unknown Verified 07/22/23 11:00 Review of Systems ROS Statement: Those systems with pertinent positive or pertinent negative responses have been documented in the HPI. ROS Other: All systems not noted in ROS Statement are negative. Past Medical History Past Medical History: Coronary Artery Disease (CAD), Cancer, COPD, Hyperlipidemia Additional Past Medical History / Comment(s): 3 cervical compressed vertabrae,LEFT GROIN HERNIA WITH SEVERE GROIN AND LEG PAIN, tonsil ca History of Any Multi-Drug Resistant Organisms: None Reported Past Surgical History: Orthopedic Surgery Additional Past Surgical History / Comment(s): orif right ankle,KNEE SURGERY ,CARDIAC STENTS Past Anesthesia/Blood Transfusion Reactions: No Reported Reaction Past Psychological History: Anxiety Smoking Status: Current every day smoker - Past Family History Mother Family Medical History: Cancer Additional Family Medical History / Comment(s): from colon cancer Father Additional Family Medical History / Comment(s): heart problems when was young General Exam Limitations: no limitations General appearance: alert, in no apparent distress Head exam: Present: atraumatic, normocephalic, normal inspection Eye exam: Present: normal appearance, PERRL, EOMI. Absent: scleral icterus, conjunctival injection, periorbital swelling ENT exam: Present: mucous membranes moist. Absent: normal oropharynx (Mass, swelling of the left tonsillar region there is some bloody tissue noted) Neck exam: Present: normal inspection, full ROM. Absent: tenderness, meningismus, lymphadenopathy Respiratory exam: Present: normal lung sounds bilaterally. Absent: respiratory distress, wheezes, rales, rhonchi, stridor Cardiovascular Exam: Present: normal rhythm, tachycardia, normal heart sounds. Absent: systolic murmur, diastolic murmur, rubs, gallop, clicks GI/Abdominal exam: Present: soft, normal bowel sounds. Absent: distended, tenderness, guarding, rebound, rigid Neurological exam: Present: alert, oriented X3 Course Vital Signs 07/22/23 07/22/23 07/22/23 10:58 12:45 13:33 Temperature 98.7 F Pulse Rate 118 H 85 74 Respiratory 18 14 16 Rate Blood Pressure 85/56 129/59 123/75 O2 Sat by Pulse 98 99 98 Oximetry EKG Findings - EKG Comments: EKG Findings:: EKG performed at 11: 49 sinus rhythm with a rate of 91 SC 104 QRS 100 QTc is QTc 424/[address], T wave inversions - EKG Results: EKG: interpreted by [facility]ER[facility] Medical Decision Making - Medical Decision Making Was pt. sent in by a medical professional or institution (DB Torres, PERSONAL LINES ACCOUNT EXECUTIVE, urgent care, hospital, or detention...) When possible be specific @ -No Did you speak to anyone other than the patient for history (EMS, parent, family, police, friend...)? What history was obtained from this source @ -No Did you review nursing and triage notes (agree or disagree)? Why? @ -I reviewed and agree with nursing and triage notes Were old charts reviewed (outside hosp., previous admission, EMS record, old EKG, old radiological studies, urgent care reports/EKG's, detention records)? Report findings @ -Reviewed prior laboratory studies Differential Diagnosis (chest pain, altered mental status, abdominal pain women, abdominal pain men, vaginal bleeding, weakness, fever, dyspnea, syncope, headache, dizziness, GI bleed, back pain, seizure, CVA, palpatations, mental health, musculoskeletal)? @ -Differential Weakness: Hypoglycemia, shock, sepsis, hyponatremia, anemia, infection, [place], ETOH, adverse medicine reaction, overdose, stroke, this is not meant to be an all-inclusive l ist. EKG interpreted by me (3pts min.). @ -As above X-rays interpreted by me (1pt min.). @Chest x-ray shows right lower lobe pneumonia CT interpreted by me (1pt min.). @ -None done U/S interpreted by me (1pt. min.). @ -None done What testing was considered but not performed or refused? (CT, X-rays, U/S, labs)? Why? @ -None What meds were considered but not given or refused? Why? @ -None Did you discuss the management of the patient with other professionals (professionals i.e. DB Torres, PERSONAL LINES ACCOUNT EXECUTIVE, lab, RT, psych nurse, adoption social worker, municipal bond trader, teacher, supervisor dog license officer, complex case manager)? Give summary @ -No Was smoking cessation discussed for >3mins.? @ -No Was critical care preformed (if so, how long)? @ -No Were there social determinants of health that impacted care today? How? (Homelessness, low income, unemployed, alcoholism, drug addiction, transportation, low edu. Level, literacy, decrease access to med. care, assisted, rehab)? @ -No Was there de-escalation of care discussed even if they declined (Discuss DNR or withdrawal of care, Hospice)? DNR status @ -No What co-morbidities impacted this encounter? (DM, HTN, Smoking, COPD, CAD, Cancer, CVA, ARF, Chemo, Hep., AIDS, mental health diagnosis, sleep apnea, morbid obesity)? @ -[Tonsillar cancer Was patient admitted / discharged? Hospital course, mention meds given and route, prescriptions, significant lab abnormalities, going to OR and other p ertinent info. @ -@MA patient presented for generalized weakness. Patient did have mild hypotension which improved after IV fluids patient is found to have pneumonia, leukopenia from his recent chemotherapy. Patient severely dehydrated with mild transaminitis. I have recommended patient to be admitted for blood cultures, IV antibiotics, further hydration, oncology evaluation patient refuses patient awake alert orientated patient is here with who states that he can make his decisions. Patient's discharge advised to return for any change in symptoms. Undiagnosed new problem with uncertain prognosis? @ -No Drug Therapy requiring intensive monitoring for toxicity (Heparin, Nitro, Insuli n, Cardizem)? @ -No Were any procedures done? @ -No Diagnosis/symptom? @ -Leukopenia, pneumonia, weakness, hypotension, dehydration Acute, or Chronic, or Acute on Chronic? @ -[Acute Uncomplicated (without systemic symptoms) or Complicated (systemic symptoms)? @ -Complicated Side effects of treatment? @ -No Exacerbation, Progression, or Severe Exacerbation? @ -No Poses a threat to life or bodily function? How? (Chest pain, [place], [place], pneumonia, PE, COPD, DKA, ARF, appy, cholecystitis, CVA, Diverticulitis, Homicidal, Suicidal, threat to staff... and all critical care pts) @ -Yes pneumonia, possible sepsis - Lab Data Result diagrams: 07/22/23 11:25 07/22/23 11:25 Lab Results 07/22/23 07/22/23 07/22/23 Range/Units 11:25 11:25 11:25 WBC 2.5 L (3.8-10.6) k/uL RBC 2.66 L (4.30-5.90) m/uL Hgb 9.2 L (13.0-17.5) gm/dL Hct 27.9 L (39.0-53.0) % MCV 104.8 H (80.0-100.0) fL MCH 34.5 (25.0-35.0) pg MCHC 32.9 (31.0-37.0) g/dL RDW 16.1 H (11.5-15.5) % Plt Count 368 (150-450) k/uL MPV 8.9 Neutrophils % (Manual) 43 % Band Neuts % (Manual) 4 % Lymphocytes % (Manual) 22 % Monocytes % (Manual) 29 % Eosinophils % (Manual) Not Reportable Metamyelocytes % 1 % Myelocytes % 1 % Neutrophils # (Manual) 1.10 L (1.3-7.7) k/uL Lymphocytes # (Manual) 0.55 L (1.0-4.8) k/uL Monocytes # (Manual) 0.73 (0-1.0) k/uL Eosinophils # (Manual) 0.03 (0-0.7) k/uL Metamyelocytes # (Man) 0.03 H (0) k/uL Myelocytes # (Manual) 0.03 H (0) k/uL Nucleated RBCs 4 H (0-0) /100 WBC Manual Slide Review Performed Anisocytosis Slight Macrocytosis Moderate Sodium 134 L (137-145) mmol/L Potassium 3.9 (3.5-5.1) mmol/L Chloride 100 (98-107) mmol/L Carbon Dioxide 17 L (22-30) mmol/L Anion Gap 17 mmol/L BUN 29 H (9-20) mg/dL Creatinine 0.71 (0.66-1.25) mg/dL Est GFR (CKD-EPI)AfAm >90 (>60 ml/min/1.73 sqM) Est GFR (CKD-EPI)NonAf >90 (>60 ml/min/1.73 sqM) Glucose 138 H (74-99) mg/dL Plasma Lactic Acid Luis 1.5 (0.7-2.0) mmol/L Calcium 9.8 (8.4-10.2) mg/dL Magnesium 1.5 L (1.6-2.3) mg/dL Total Bilirubin 0.9 (0.2-1.3) mg/dL AST 83 H (17-59) U/L ALT 161 H (4-49) U/L Alkaline Phosphatase 523 H (38-126) U/L Troponin I (0.000-0.034) ng/mL Total Protein 6.4 (6.3-8.2) g/dL Albumin 3.3 L (3.5-5.0) g/dL 07/22/23 Range/Units 11:25 WBC (3.8-10.6) k/uL RBC (4.30-5.90) m/uL Hgb (13.0-17.5) gm/dL Hct (39.0-53.0) % MCV (80.0-100.0) fL MCH (25.0-35.0) pg MCHC (31.0-37.0) g/dL RDW (11.5-15.5) % Plt Count (150-450) k/uL MPV Neutrophils % (Manual) % Band Neuts % (Manual) % Lymphocytes % (Manual) % Monocytes % (Manual) % Eosinophils % (Manual) Metamyelocytes % % Myelocytes % % Neutrophils # (Manual) (1.3-7.7) k/uL Lymphocytes # (Manual) (1.0-4.8) k/uL Monocytes # (Manual) (0-1.0) k/uL Eosinophils # (Manual) (0-0.7) k/uL Metamyelocytes # (Man) (0) k/uL Myelocytes # (Manual) (0) k/uL Nucleated RBCs (0-0) /100 WBC Manual Slide Review Anisocytosis Macrocytosis Sodium (137-145) mmol/L Potassium (3.5-5.1) mmol/L Chloride (98-107) mmol/L Carbon Dioxide (22-30) mmol/L Anion Gap mmol/L BUN (9-20) mg/dL Creatinine (0.66-1.25) mg/dL Est GFR (CKD-EPI)AfAm (>60 ml/min/1.73 sqM) Est GFR (CKD-EPI)NonAf (>60 ml/min/1.73 sqM) Glucose (74-99) mg/dL Plasma Lactic Acid Luis (0.7-2.0) mmol/L Calcium (8.4-10.2) mg/dL Magnesium (1.6-2.3) mg/dL Total Bilirubin (0.2-1.3) mg/dL AST (17-59) U/L ALT (4-49) U/L Alkaline Phosphatase (38-126) U/L Troponin I 0.043 H* (0.000-0.034) ng/mL Total Protein (6.3-8.2) g/dL Albumin (3.5-5.0) g/dL Disposition Clinical Impression: Dehydration, Hypotension, Elevated troponin, Tonsil cancer, Leukopenia Disposition: LEFT AGAINST MEDICAL ADVICE Condition: Poor Additional Instructions: Please return to the Emergency Department if symptoms worsen or any other concerns. Prescriptions: Azithromycin [Zithromax Z Pack] 0 tab PO DIRECTED #6 tab Is patient prescribed a controlled substance at d/c from ED?: No Referrals: Jamel Rg MD [Primary Care Provider] - 1-2 days Time of Disposition: 13:06
[2023-07-22] MEDS: SODIUM CHLORIDE 0.9% 1,000 ML IV ONE (11:42)
[2023-07-22] MEDS: SODIUM CHLORIDE 0.9% 500 ML 500 ML IV ONE (11:42)
[2023-07-22] MEDS: METOCLOPRAMIDE 5 MG/ML 2 ML VIAL IVP STA (11:43)
[2023-07-22 11:53] LABS: Anisocytosis Slight; HCT 27.9 % (39.0-53.0); HGB 9.2 gm/dL (13.0-17.5); MCH 34.5 pg (25.0-35.0); MCHC 32.9 g/dL (31.0-37.0); MCV 104.8 fL (80.0-100.0); Macrocytosis Moderate; Mean Platelet Volume 8.9; Platelet Count 368 k/uL (150-450); RBC 2.66 m/uL (4.30-5.90); RDW 16.1 % (11.5-15.5)
[2023-07-22 12:07] LABS: ALT 161 U/L (4-49); AST 83 U/L (17-59); African American GFR (CKD) >90 (>60 ml/min/1.73 sqM); Albumin 3.3 g/dL (3.5-5.0); Alkaline Phosphatase 523 U/L (38-126); Anion Gap 17 mmol/L; Blood Urea Nitrogen 29 mg/dL (9-20); Calcium 9.8 mg/dL (8.4-10.2); Carbon Dioxide 17 mmol/L (22-30); Chloride 100 mmol/L (98-107); Glucose 138 mg/dL (74-99); Magnesium 1.5 mg/dL (1.6-2.3); Non-African American GFR(CKD) >90 (>60 ml/min/1.73 sqM); Potassium 3.9 mmol/L (3.5-5.1); Sodium 134 mmol/L (137-145); Total Bilirubin 0.9 mg/dL (0.2-1.3); Total Protein 6.4 g/dL (6.3-8.2)
--- NOTE | 2023-07-22 12:28 | XR ---
EXAMINATION TYPE: XR chest 2V DATE OF EXAM: 07/22/2023 12:18 PM CLINICAL INDICATION:Male, 63 years old with history of weakness; COMPARISON: Chest radiographs from 04/19/2023. TECHNIQUE: XR chest 2V Frontal and lateral views of the chest. FINDINGS: Lungs/Pleura: Airspace opacities in the right base. There is no evidence of pleural effusion, focal c onsolidation, or pneumothorax. Pulmonary vascularity: Unremarkable. Heart/mediastinum: Cardiomediastinal silhouette is unremarkable. Musculoskeletal: No acute osseous pathology. IMPRESSION: Right basilar airspace opacities correlate for pneumonia
[2023-07-22 12:42] LABS: Band Neutrophils % 4 %; Eosinophils # (M) 0.03 k/uL (0-0.7); Total Cells Counted 100
[2023-07-22 12:56] LABS: Lymphocytes # (M) 0.55 k/uL (1.0-4.8); Metamyelocytes # (M) 0.03 k/uL (0); Metamyelocytes % 1 %; Monocytes # (M) 0.73 k/uL (0-1.0); Myelocytes # (M) 0.03 k/uL (0); Myelocytes % 1 %; Neutrophils % (M) 43 %; Nucleated Red Blood Cells 4 /100 WBC (0-0); WBC 2.5 k/uL (3.8-10.6)
[2023-07-22] MEDS: HYDROmorphone 0.5 MG/0.5 ML SYRINGE IVP STA (13:25)
[2023-07-22] MEDS: cefTRIAXone IN SWFI 1,000 MG/10 ML SYRINGE IVP STA (13:25)
[2023-07-22 13:40] VITALS: BP 123/75; PULSE 74; RESP 16
== END 2023-07-22 13:36 | disposition left against medical advice (07) ==
LOC: EC 10:49
DX: E86.0 Dehydration (principal); I95.89 Other hypotension; R79.89 Other specified abnormal findings of blood chemistry; C09.9 Malignant neoplasm of tonsil, unspecified; D72.819 Decreased white blood cell count, unspecified; I25.10 Atherosclerotic heart disease of native coronary artery without angina pectoris; E78.5 Hyperlipidemia, unspecified; J44.9 Chronic obstructive pulmonary disease, unspecified; F41.9 Anxiety disorder, unspecified; F17.200 Nicotine dependence, unspecified, uncomplicated; Z79.899 Other long term (current) drug therapy; Z88.0 Allergy status to penicillin; Z53.29 Procedure and treatment not carried out because of patient's decision for other reasons
CPT/HCPCS: 36415; 93005; 80053; 83605; 83735; 84484; 85025; 71046; 99285; 96374; 96375 ×2; 96361 ×2; J2765; J0696; J1170

== ENCOUNTER → 2023-10-12 | Outpatient (CLI) | payer BC ==
--- NOTE | 2023-10-14 13:05 | PE ---
EXAMINATION TYPE: PET CT fusion skull to thigh DATE OF EXAM: 10/12/2023 CLINICAL INDICATION:Male, 63 years old with history of C10.8 MALIGNANT NEOPLASM OVERLAPPING SITES CONNIE PHAR; TECHNIQUE: Following the intravenous administration of 11.01 mCi of F-18 FDG, whole body images are performed from the skull base to the midthigh. Images are reviewed on the computer in the coronal, axial, and sagittal planes. Reconstructed rotating images are created on independent workstation and reviewed on the computer. A non-contrast CT is performed in conjunction with the PET scan. Glucose level 100 mg/dL CT DLP: 9730 mGycm, Automated exposure control for dose reduction was used. COMPARISON: CT None, PET/CT 04/19/2023, FINDINGS: Mediastinal SUV mean is 2.3. Hepatic parenchyma SUV mean is 1.7. SKULL BASE AND NECK: * Decrease in metabolic activity of the left base of tongue lesion max SUV 3.6, previously 11.0. * Decrease in left neck lymph node FDG activity max SUV 4.0 previously 7.0. Lymph nodes have also de creased in size previously measuring up to 26 mm now measuring 9 mm. CHEST, MEDIASTINUM, AND HILAR REGION: * No suspicious radiotracer activity. * Mild uptake in the right hilar region max SUV 3.2, previously 2.8, likely reactive. ABDOMEN AND PELVIS: No suspicious radiotracer activity. MUSCULOSKELETAL STRUCTURES: No suspicious radiotracer activity. OTHER CT: Atherosclerosis of the carotid bifurcations, intracranial vascular and the coronary arterie s. Scattered colonic diverticula. Mild centrilobular emphysema changes throughout the lungs. IMPRESSION: Positive response to therapy with decrease in metabolic activity and size of left neck lymph nodes an d left base of tongue lesion. No evidence for distant metastatic disease.
== END | disposition home or self-care (01) ==
LOC: RADPETMAIN 12:34
PROVIDERS: ATTEND Radiology Radiation Oncology
DX: C77.0 Secondary and unspecified malignant neoplasm of lymph nodes of head, face and neck (principal); C10.8 Malignant neoplasm of overlapping sites of oropharynx; C09.1 Malignant neoplasm of tonsillar pillar (anterior) (posterior); K14.9 Disease of tongue, unspecified
CPT/HCPCS: 78815; A9552

== ENCOUNTER → 2024-04-16 | Outpatient (CLI) | payer BC ==
--- NOTE | 2024-04-16 13:19 | CT ---
EXAMINATION TYPE: CT neck chest w con CT DLP: 808 mGycm, Automated exposure control for dose reduction was used. DATE OF EXAM: 04/16/2024 1:03 PM COMPARISON: PET/CT 10/12/2023, CT low-dose lung 08/25/2022, CT neck 03/21/2023. CLINICAL INDICATION:Male, 64 years old with history of C77.0, C10.8, C09.1;, tonsil CA, loss of appet ite TECHNIQUE: Standard enhanced CT of the neck and chest. Axial sections with coronal and sagittal refo rmats were obtained. Contrast used:100 mL of Isovue 300 with IV Contrast, (none if empty) Oral contrast used: (none if empty) FINDINGS: BRAIN: Visualized portions are grossly unremarkable. ORBITS: Unremarkable SINUSES: Grossly unremarkable. Suprahyoid Neck: The oropharynx, oral cavity, parapharyngeal and retropharyngeal spaces are clear and symmetric. Previously seen left tongue base lesion is not well-visualized. The nasopharynx is unrema rkable. Infrahyoid Neck: The larynx, hypopharynx, and supraglottic area are clear and symmetric. MUSCULOSKELETAL: No acute osseous pathology. LYMPH NODES: Left jugular lymph node with central calcification measuring up to 1.1 cm is stable in size from most recent PET/CT. Previously measured up to 2.[address] neck 03/21/2023. No other pathologically enlarged lymph nodes identified.. VASCULAR STRUCTURES: Patent with atherosclerotic plaque of the internal carotid arteries at the bifur cation. THORACIC INLET/AIRWAY: Airway is patent. The lung apices are clear. SOFT TISSUES/THYROID: Thyroid and remainder of the soft tissues are unremarkable. OTHER: none. LUNGS/ PLEURA: Biapical pleural-parenchymal scarring. Mild bilateral lower lobe dependent subsegmenta l atelectasis. Mild centrilobular emphysematous changes. Stable right midlung 4 millimeter pulmonary nodule (series 7, image 33). AIRWAY: Patent and unremarkable. HEART: Size within normal limits.No pericardial effusion. Mild coronary artery calcifications. MEDIASTINUM: No evidence of adenopathy. VASCULATURE: Aneurysmal dilatation of the aortic root measuring up to 4.2 cm. Ectasia of the ascendi ng thoracic aorta measures 3.9 cm. Atherosclerotic calcification of the aorta and its branches. Mild narrowing at the origin the left common carotid artery secondary to calcified and noncalcified plaque . MUSCULOSKELETAL: Moderate disc degeneration changes are present throughout the thoracolumbar spine. N o aggressive osseous lesion. SOFT TISSUES/LYMPH NODES: Bilateral gynecomastia. LOWER NECK: No significant findings. UPPER ABDOMEN: Diffuse low-attenuation to the liver parenchyma. IMPRESSION 1. Overall stable appearance from prior PET/CT 10/12/2023 with stable mildly enlarged treated left jug ular lymph node measuring up to 1.1 cm. No new suspicious abnormalities. 2. Mild COPD changes. 3. Stable aneurysmal dilatation of the aortic root measuring 4.2 cm. 4. Hepatic steatosis. [facility], , 04/16/2024 1:17 PM
== END | disposition home or self-care (01) ==
LOC: RADCTMAIN 12:34
PROVIDERS: ATTEND Radiology Radiation Oncology
DX: C77.0 Secondary and unspecified malignant neoplasm of lymph nodes of head, face and neck (principal); C10.8 Malignant neoplasm of overlapping sites of oropharynx; C09.1 Malignant neoplasm of tonsillar pillar (anterior) (posterior); J44.9 Chronic obstructive pulmonary disease, unspecified; K76.0 Fatty (change of) liver, not elsewhere classified; I71.9 Aortic aneurysm of unspecified site, without rupture; N62 Hypertrophy of breast; I70.0 Atherosclerosis of aorta; J98.11 Atelectasis; R91.1 Solitary pulmonary nodule
CPT/HCPCS: 70491; 71260; Q9967

== ENCOUNTER 2024-07-08 17:43 | Observation (INO) | payer BC ==
[2024-07-08] MEDS: SODIUM CHLORIDE 0.9% 1,000 ML IV STA (18:37)
[2024-07-08 18:43] LABS: Basophils % (A) 0 %; Eosinophils # (A) 0.1 k/uL (0-0.7); Eosinophils % (A) 2 %; HCT 37.9 % (39.0-53.0); HGB 11.5 gm/dL (13.0-17.5); Hypochromasia Slight; Lymphocytes % (A) 12 %; MCH 31.4 pg (25.0-35.0); MCHC 30.4 g/dL (31.0-37.0); MCV 103.5 fL (80.0-100.0); Macrocytosis Slight; Mean Platelet Volume 7.3; Monocytes # (A) 0.5 k/uL (0-1.0); Monocytes % (A) 6 %; Neutrophils # (A) 6.4 k/uL (1.3-7.7); Neutrophils % (A) 78 %; Platelet Count 509 k/uL (150-450); RBC 3.66 m/uL (4.30-5.90); RDW 15.2 % (11.5-15.5); WBC 8.2 k/uL (3.8-10.6)
[2024-07-08 18:52] LABS: ALT 16 U/L (4-49); AST 22 U/L (17-59); African American GFR (CKD) >90 (>60 ml/min/1.73 sqM); Albumin 3.1 g/dL (3.5-5.0); Alkaline Phosphatase 211 U/L (38-126); Amylase 35 U/L (30-110); Anion Gap 13 mmol/L; Blood Urea Nitrogen 5 mg/dL (9-20); Calcium 9.1 mg/dL (8.4-10.2); Carbon Dioxide 21 mmol/L (22-30); Chloride 99 mmol/L (98-107); Glucose 101 mg/dL (74-99); Lipase 92 U/L (23-300); Non-African American GFR(CKD) >90 (>60 ml/min/1.73 sqM); Sodium 133 mmol/L (137-145); Total Bilirubin 0.5 mg/dL (0.2-1.3); Total Protein 6.3 g/dL (6.3-8.2)
--- NOTE | 2024-07-08 18:57 | ED ---
General Adult HPI - General Chief complaint: Altered Mental Status Stated complaint: AMS Time Seen by Provider: 07/08/24 18:00 Source: patient, family, EMS, RN notes reviewed, old records reviewed Mode of arrival: EMS Limitations: altered mental status - History of Present Illness Initial comments: This is a 64-year-old male who presents to the emergency department after family noted he was complaining of some abdominal pain and his mental status has gotten worse over the last 3 days. Patient has had no vomiting or diarrhea. Patient is not complaining any chest pain there is no difficulty breathing. According to family spine no fevers or chills but his mental status is decreased and occasionally he complains abdominal pain though currently the patient himself does not complain of any abdominal pain however he is only alert and oriented x 1 which is worse than his baseline - Related Data Home Medications Medication Instructions Recorded Confirmed Ezetimibe [Zetia] 10 mg PO DAILY 05/23/23 07/08/24 Metoprolol Succinate [Metoprolol 12.5 mg PO DAILY 05/23/23 07/08/24 Succinate ER] gemfibroziL [Lopid] 600 mg PO BID 05/23/23 07/08/24 Aspirin EC [Ecotrin Low Dose] 81 mg PO DAILY 07/08/24 07/08/24 Atorvastatin [Lipitor] 80 mg PO HS 07/08/24 07/08/24 HYDROcodone/APAP 10-325MG [[place] 1 tab PO Q6H 07/08/24 07/08/24 10-325] Lactulose [Constulose] 20 gm PO DIRECTED 07/08/24 07/08/24 PARoxetine HCL [Paxil] 10 mg PO DAILY 07/08/24 07/08/24 Tamsulosin [Flomax] 0.4 mg PO DAILY 07/08/24 07/08/24 hydrOXYzine HCL [Atarax] 25 mg PO Q8H 07/08/24 07/08/24 Previous Rx's Medication Instructions Recorded Omeprazole [PriLOSEC] 40 mg PO DAILY #14 cap 12/18/19 Allergies Allergy/AdvReac Type Severity Reaction Status Date / Time Penicillins Allergy Unknown Verified 07/22/23 11:00 Review of Systems ROS Statement: Those systems with pertinent positive or pertinent negative responses have been documented in the HPI. ROS Other: All systems not noted in ROS Statement are negative. Past Medical History Past Medical History: Coronary Artery Disease (CAD), Cancer, COPD, Hyperlipidemia Additional Past Medical History / Comment(s): 3 cervical compressed vertabrae,LEFT GROIN HERNIA WITH SEVERE GROIN AND LEG PAIN, tonsil ca History of Any Multi-Drug Resistant Organisms: None Reported Past Surgical History: Orthopedic Surgery Additional Past Surgical History / Comment(s): orif right ankle,KNEE SURGERY ,CARDIAC STENTS Past Anesthesia/Blood Transfusion Reactions: No Reported Reaction Past Psychological History: Anxiety Smoking Status: Current every day smoker Past Alcohol Use History: None Reported Past Drug Use History: None Reported - Past Family History Mother Family Medical History: Cancer Additional Family Medical History / Comment(s): from colon cancer Father Additional Family Medical History / Comment(s): heart problems when was young General Exam - General Exam Comments Initial Comments: GENERAL: Patient is well-developed and well-nourished. Patient is nontoxic and well-hydr ated and is in no acute distress. ENT: Neck is soft and supple. No significant lymphadenopathy is noted. Oropharynx is clear. Moist mucous membranes. Neck has full range of motion without eliciting any pain. EYES: The sclera were anicteric and conjunctiva were pink and moist. Extraocular mo vements were intact and pupils were equal round and reactive to light. Eyelids were unremarkable. PULMONARY: Unlabored respirations. Good breath sounds bilaterally. No audible rales rhonchi or wheezing was noted. CARDIOVASCULAR: There is a regular rate and rhythm without any murmurs gallops or rubs. ABDOMEN: Soft and nontender with normal bowel sounds. Cannot find any area of tenderness on palpation SKIN: Skin is clear with no lesions or rashes and otherwise unremarkable. NEUROLOGIC: Patient is alert and oriented x 1. Cranial nerves II through XII are grossly intact. Motor and sensory are also intact. Normal speech, volume and content. Symmetrical smile. MUSCULOSKELETAL: Normal extremities with adequate strength and full range of motion. LYMPHATICS: No significant lymphadenopathy is noted PSYCHIATRIC: Normal psychiatric evaluation. Limitations: altered mental status Course Vital Signs 07/08/24 07/08/24 17:54 18:04 Temperature 99.0 F 99.3 F Pulse Rate 99 99 Respiratory 16 18 Rate Blood Pressure 110/78 110/78 O2 Sat by Pulse 97 99 Oximetry Medical Decision Making - Medical Decision Making EKG is interpreted by myself EKG shows sinus rhythm at 94 bpm CO was 123 QRS is 101 QT interval is 418 QTc is 470. Patient's EKG shows no ST segment elevation or depression. Was pt. sent in by a medical professional or institution (DB Torres, CLINICAL RESOURCE MANAGER, urgent care, hospital, or care home...) When possible be specific @ -No Did you speak to anyone other than the patient for history (EMS, parent, family, police, friend...)? What history was obtained from this source @ -No Did you review nursing and triage notes (agree or disagree)? Why? @ -I reviewed and agree with nursing and triage notes Were old charts reviewed (outside hosp., previous admission, EMS record, old EKG, old radiological studies, urgent care reports/EKG's, care home records)? Report findings @ -No old charts were reviewed Differential Diagnosis? @ -Differential Altered Mental Status: Hypoglycemia, DKA, hypercapnia, ETOH, overdose, CO poisoning, trauma, myxedema coma, HTN encephalopathy, infection, encephalitis, psychosis, intercranial hemorrhage, hepatic encephalopathy, meningitis, CVA, this is not meant to be an all-inclusive list EKG interpreted by me (3pts min.). @ -As above X-rays interpreted by me (1pt min.). @ -Chest x-ray shows no acute normality CT interpreted by me (1pt min.). @ -None done U/S interpreted by me (1pt. min.). @ -None done What testing was considered but not performed or refused? (CT, X-rays, U/S, labs)? Why? @ -None What meds were considered but not given or refused? Why? @ -None Did you discuss the management of the patient with other professionals (professionals i.e. DB Torres, CLINICAL RESOURCE MANAGER, lab, RT, psych nurse, foster care social worker, hydrographic surveyor, teacher, chief client officer, case maker)? Give summary @ -I spoke with sound physicians agreed to admit the patient admit the patient recommending orders Was smoking cessation discussed for >3mins.? @ -No Was critical care preformed (if so, how long)? @ -No Were there social determinants of health that impacted care today? How? (Homelessness, low income, unemployed, alcoholism, drug addiction, transportation, low edu. Level, literacy, decrease access to med. care, alf, rehab)? @ -No Was there de-escalation of care discussed even if they declined (Discuss DNR or withdrawal of care, Hospice)? DNR status @ -No What co-morbidities impacted this encounter? (DM, HTN, Smoking, COPD, CAD, Cancer, CVA, ARF, Chemo, Hep., AIDS, mental health diagnosis, sleep apnea, morbid obesity)? @ -None Was patient admitted / discharged? Hospital course, mention meds given and route, prescriptions, significant lab abnormalities, going to OR and other pertinent info. @ -Patient had a urinary tract infection patient was given 2 g Rocephin. Patient will be admitted to [facility] physicians because the patient continues to be altered. Undiagnosed new problem with uncertain prognosis? @ -No Drug Therapy requiring intensive monitoring for toxicity (Heparin, Nitro, Insulin, Cardizem)? @ -No Were any procedures done? @ -No Diagnosis/symptom? @ -Altered mental status Acute, or Chronic, or Acute on Chronic? @ -Acute Uncomplicated (without systemic symptoms) or Complicated (systemic symptoms)? @ -Complicated Side effects of treatment? @ -No Exacerbation, Progression, or Severe Exacerbation? @ -No Poses a threat to life or bodily function? How? (Chest pain, USA, PA, pneumonia, PE, COPD, DKA, ARF, appy, cholecystitis, CVA, Diverticulitis, Homicidal, Suicidal, threat to staff... and all critical care pts) @ -Yes this could be secondary to infection and lead to sepsis and endorgan dysfunction Diagnosis/symptom? @ -Urinary tract infection Acute, or Chronic, or Acute on Chronic? @ -Acute Uncomplicated (without systemic symptoms) or Complicated (systemic symptoms)? @ -Complicated Side effects of treatment? @ -None Exacerbation, Progression, or Severe Exacerbation] @ -No Poses a threat to life or bodily function? @ -Yes this can lead to sepsis and endorgan dysfunction - Lab Data Result diagrams: 07/08/24 18:32 07/08/24 18:32 Lab Results 07/08/24 07/08/24 07/08/24 Range/Units 18:32 18:32 18:32 WBC 8.2 (3.8-10.6) k/uL RBC 3.66 L (4.30-5.90) m/uL Hgb 11.5 L (13.0-17.5) gm/dL Hct 37.9 L (39.0-53.0) % MCV 103.5 H (80.0-100.0) fL MCH 31.4 (25.0-35.0) pg MCHC 30.4 L (31.0-37.0) g/dL RDW 15.2 (11.5-15.5) % Plt Count 509 H (150-450) k/uL MPV 7.3 Neutrophils % 78 % Lymphocytes % 12 % Monocytes % 6 % Eosinophils % 2 % Basophils % 0 % Neutrophils # 6.4 (1.3-7.7) k/uL Lymphocytes # 1.0 (1.0-4.8) k/uL Monocytes # 0.5 (0-1.0) k/uL Eosinophils # 0.1 (0-0.7) k/uL Basophils # 0.0 (0-0.2) k/uL Hypochromasia Slight Macrocytosis Slight Sodium 133 L (137-145) mmol/L Potassium 4.0 (3.5-5.1) mmol/L Chloride 99 (98-107) mmol/L Carbon Dioxide 21 L (22-30) mmol/L Anion Gap 13 mmol/L BUN 5 L (9-20) mg/dL Creatinine 0.45 L (0.66-1.25) mg/dL Est GFR (CKD-EPI)AfAm >90 (>60 ml/min/1.73 sqM) Est GFR (CKD-EPI)NonAf >90 (>60 ml/min/1.73 sqM) Glucose 101 H (74-99) mg/dL Plasma Lactic Acid Luis (0.7-2.0) mmol/L Calcium 9.1 (8.4-10.2) mg/dL Total Bilirubin 0.5 (0.2-1.3) mg/dL AST 22 (17-59) U/L ALT 16 (4-49) U/L Alkaline Phosphatase 211 H (38-126) U/L Total Protein 6.3 (6.3-8.2) g/dL Albumin 3.1 L (3.5-5.0) g/dL Amylase 35 (30-110) U/L Lipase 92 (23-300) U/L Urine Color Yellow Urine Appearance Cloudy (Clear) Urine pH 6.0 (5.0-8.0) Ur Specific [place] 1.020 (1.001-1.035) Urine Protein Trace H (Negative) Urine Glucose (UA) Negative (Negative) Urine Ketones Negative (Negative) Urine Blood Negative (Negative) Urine Nitrite Negative (Negative) Urine Bilirubin Negative (Negative) Urine Urobilinogen <2.0 (<2.0) mg/dL Ur Leukocyte Esterase Large H (Negative) Urine RBC 4 (0-5) /hpf Urine WBC 57 H (0-5) /hpf Urine Bacteria Few H (None) /hpf Hyaline Casts 21 H (0-2) /lpf Urine Mucus Many H (None) /hpf 07/08/24 Range/Units 18:32 WBC (3.8-10.6) k/uL RBC (4.30-5.90) m/uL Hgb (13.0-17.5) gm/dL Hct (39.0-53.0) % MCV (80.0-100.0) fL MCH (25.0-35.0) pg MCHC (31.0-37.0) g/dL RDW (11.5-15.5) % Plt Count (150-450) k/uL MPV Neutrophils % % Lymphocytes % % Monocytes % % Eosinophils % % Basophils % % Neutrophils # (1.3-7.7) k/uL Lymphocytes # (1.0-4.8) k/uL Monocytes # (0-1.0) k/uL Eosinophils # (0-0.7) k/uL Basophils # (0-0.2) k/uL Hypochromasia Macrocytosis Sodium (137-145) mmol/L Potassium (3.5-5.1) mmol/L Chloride (98-107) mmol/L Carbon Dioxide (22-30) mmol/L Anion Gap mmol/L BUN (9-20) mg/dL Creatinine (0.66-1.25) mg/dL Est GFR (CKD-EPI)AfAm (>60 ml/min/1.73 sqM) Est GFR (CKD-EPI)NonAf (>60 ml/min/1.73 sqM) Glucose (74-99) mg/dL Plasma Lactic Acid Luis 2.5 H* (0.7-2.0) mmol/L Calcium (8.4-10.2) mg/dL Total Bilirubin (0.2-1.3) mg/dL AST (17-59) U/L ALT (4-49) U/L Alkaline Phosphatase (38-126) U/L Total Protein (6.3-8.2) g/dL Albumin (3.5-5.0) g/dL Amylase (30-110) U/L Lipase (23-300) U/L Urine Color Urine Appearance (Clear) Urine pH (5.0-8.0) Ur Specific [place] (1.001-1.035) Urine Protein (Negative) Urine Glucose (UA) (Negative) Urine Ketones (Negative) Urine Blood (Negative) Urine Nitrite (Negative) Urine Bilirubin (Negative) Urine Urobilinogen (<2.0) mg/dL Ur Leukocyte Esterase (Negative) Urine RBC (0-5) /hpf Urine WBC (0-5) /hpf Urine Bacteria (None) /hpf Hyaline Casts (0-2) /lpf Urine Mucus (None) /hpf Disposition Clinical Impression: Altered mental status, Urinary tract infection Disposition: ADMITTED IP TO THIS HOSP Referrals: Jamel Rg MD [Primary Care Provider] - 1-2 days Time of Disposition: 20:23
[2024-07-08 19:20] LABS: Appearance,Urine Cloudy (Clear); Bacteria,Urine Few /hpf; Bilirubin,Urine Negative (Negative); Blood,Urine Negative (Negative); Color,Urine Yellow; Glucose,Urine (UA) Negative (Negative); Hyaline Casts,Urine 21 /lpf (0-2); Ketones,Urine Negative (Negative); Leukocyte Esterase,Urine Large (Negative); Mucus,Urine Many /hpf; Nitrite,Urine Negative (Negative); Protein,Urine Trace (Negative); RBC,Urine 4 /hpf (0-5); Urobilinogen,Urine <2.0 mg/dL (<2.0); WBC,Urine 57 /hpf (0-5)
--- NOTE | 2024-07-08 19:47 | XR ---
EXAMINATION TYPE: XR chest 1V portable DATE OF EXAM: 07/08/2024 7:44 PM COMPARISON: Chest radiographs from 07/22/2023 CLINICAL INDICATION: Male, 64 years old with history of Short of breath; TECHNIQUE: XR chest 1V portable Frontal view of the chest. FINDINGS: Lungs/Pleura: There is no evidence of pleural effusion, focal consolidation, or pneumothorax. Pulmonary vascularity: Unremarkable. Heart/mediastinum: Cardiomediastinal silhouette is unremarkable. Musculoskeletal: No acute osseous pathology. IMPRESSION: No acute cardiopulmonary disease/process. [facility], , 07/08/2024 7:45 PM
[2024-07-08] MEDS: cefTRIAXone IN SWFI 1,000 MG/10 ML SYRINGE IVP STA (20:11)
--- NOTE | 2024-07-08 21:36 | CT ---
EXAMINATION TYPE: CT brain wo con DATE OF EXAM: 07/08/2024 9:28 PM COMPARISON: 12/05/2019. CLINICAL INDICATION: Male, 64 years old with history of altered mental status, TECHNIQUE: Brain: Axial CT images of the brain were obtained with coronal and sagittal reformats created and rev iewed. Contrast used: None. Oral contrast used: None. CT DLP: 1272 mGycm, Automated exposure control for dose reduction was used. FINDINGS: Brain: Extra-axial spaces: No abnormal extra-axial fluid collections. Ventricular system: Within normal limits Cerebral parenchyma: No acute intraparenchymal hemorrhage or mass effect. The conklin-white junction is well differentiated. Cerebellum: Unremarkable. Mass effect: No evidence of midline shift. Intracranial vasculature: unremarkable Soft tissues: Normal. Calvarium/osseous structures: No depressed skull fracture. Paranasal sinuses and mastoid air cells: Mild scattered paranasal sinus disease. Visualized orbits: Orbital contents are intact. IMPRESSION: No acute intracranial process. [facility], , 07/08/2024 9:33 PM
[2024-07-08 22:49] LABS: Amphetamine Screen,Urine Not Detected (NotDetected); Barbiturate Screen,Urine Not Detected (NotDetected); Benzodiazepines Screen,Urine Detected (NotDetected); Cocaine Screen,Urine Not Detected (NotDetected); Methadone Screen, Urine Not Detected (NotDetected); Opiate Screen,Urine Detected (NotDetected); Oxycodone Screen, Urine Not Detected (NotDetected); Phencyclidine Screen,Urine Not Detected (NotDetected); Tricyclic Antidepressant,Urine Detected (NotDetected); Urn Cannabinoid Scrn Not Detected (NotDetected)
[2024-07-08] MEDS ORDERED: NALOXONE 0.4 MG/ML 1 ML VIAL IV PRN (23:53)
[2024-07-08] MEDS ORDERED: ACETAMINOPHEN TAB 325 MG TAB PO PRN (23:53)
[2024-07-09] MEDS: HYDROcodone/APAP 10-325MG 1 EACH TAB PO SCH (01:21)
[2024-07-09] MEDS: hydrOXYzine HCL 25 MG TAB PO SCH (01:22)
[2024-07-09] MEDS: ATORVASTATIN 80 MG TAB PO SCH (01:22)
[2024-07-09] MEDS: SODIUM CHLORIDE 0.9% 1,000 ML IV SCH (01:27)
[2024-07-09] MEDS: LACTULOSE 20 GM/30 ML CUP PO SCH (01:27)
--- NOTE | 2024-07-09 02:42 | P.HPIM ---
History of Present Illness H&P Date: 07/08/24 History of present illness; Patient is a 64-year-old male with CAD, COPD, hyperlipidemia, tonsil cancer past radiation [address] Jennings who presents with nausea and vomiting. at bedside who provided much of history. She states patient had nausea and 1 episode of vomiting last night with some bloody emesis. She also states for the last 3 months he has dealt with nausea and vomiting which has progressed over the last few days. She also states he was hospitalized at [facility] for prolonged time due to stated metabolic encephalopathy, but etiology unclear to . Prior to that hospitalization he was able to ambulate regularly and had clear mentation. Since that time he cannot ambulate without support due to weakness and has had ongoing confusion. He is currently at his baseline of the last 2 months. Also, he has indwelling catheter for the last 2 months which was last changed 2 days ago. He also states he has a history of alcohol use but quit 1 year ago, prior to that he was drinking 12-15 beers a day for many years. Patient reports absence of fever, chills, weight loss, chest pain, palpitations, diaphoresis, dyspnea, cough, abdominal pain, nausea, vomiting, constipation, diarrhea, weakness, myalgia, dizziness, headache, and dysuria. Spoke with the ER physician, patient admission was accepted by internal medicine service for treatment. REVIEW OF SYSTEMS: Pertinent positives and negatives noted in HPI. PHYSICAL EXAMINATION: Vitals reviewed GENERAL: Resting comfortably in bed. EYES: PERRL, no scleral injection or icterus. No vision loss HENT: Normocephalic, atraumatic, hearing grossly intact, moist mucous membranes, poor dentition. NECK: No tracheal deviation, full range of motion. CARDIOVASCULAR: S1 and S2 present. No murmurs, rubs, or gallops. PULMONARY: Chest is clear to auscultation, no wheezing, rhonchi, or crackles. ABDOMEN: Soft, mild generalized tenderness, nondistended. No palpable organomegaly. MUSCULOSKELETAL: No apparent joint swelling and deformities. EXTREMITIES: No apparent cyanosis, clubbing. No pedal edema. NEUROLOGICAL: Alert and oriented x 2 person and time. Gross neurological examination with no apparent focal deficits. SKIN: No apparent rashes. ER FINDINGS: Labs significant for WBC 8.2, hemoglobin 11.5, platelets 509, sodium 133, bicarb 21, anion gap 13, BUN 5, creatinine 0.45, glucose 101, lactic acid 2.5 => 2.6, ALP 211, UA positive for trace protein, leukocyte esterace large, WBC 57, hyaline cast 21, UDS positive for opiates, TCAs, benzodiazepine. EKG independently interpreted showed sinus rhythm heart rate of 94, prolonged QTc 470, no ST segment elevation or depression seen, no T-wave inversions seen. Chest x-ray done independently interpreted showed no acute cardiopulmonary process. CT head independently interpreted showed no acute intracranial process. Assessment and Plan: In summary, patient is a 64-year-old male with CAD, COPD, hyperlipidemia who presents with nausea and vomiting and worsening mental status #UTI complicated with indwelling catheter present on admission -UA positive for trace protein, leukocyte esterace large, WBC 57, hyaline cast 21 Urine culture pending US kidney bladder pending Continue ceftriaxone 2 g daily unremarkable WBC 8.2, stable hemoglobin 11.5, platelets 509, sodium 133, bicarb 21, anion gap 13, BUN 5, creatinine 0.45, glucose 101, lactic acid 2.5 => 2.6 # Chronic encephalopathy, possibly hepatic encephalopathy #History of alcohol use per familiy patient at baseline of his mental status for the past 2 months -Urine tox positive for opiates, TCAs, benzodiazepine -Lactate 2.5 => 2.6 Continue lactulose 20 g p.o. twice daily Ammonia ordered CT head independently interpreted showed no acute intracranial process. #Generalized abdominal pain #Isolated elevated ALP Initial ALP 211 Hold Zofran, QTc prolonged Consider US RUQ if worsening Monitor CMP #Macrocytic anemia #Thrombocytosis Hemoglobin 11.5, MCV 103.5, platelets 5 9 Thiamine, folate, B12 ordered Monitor CBC Chronic Medical Conditions #Coronary artery disease - Resume home Aspirin, Atorvastatin, Metoprolol #Hyperlipidemia resume home medications #GERD- Resume home Pantoprazole #Anxiety/Depression- Resume home medication #BPH- Resume home Tamsulosin DVT ppx: Subq Lovenox 40 meq daily Code status: Full code F: IV Normal saline 75 mL/hr E: Replete as needed N: Heart healthy diet A: Ambulatory Anticipated discharge place: Pending clinical course Anticipated discharge time: Pending clinical course Dictation was produced using [employer] software. Please excuse any grammatical, word or spelling errors. I have seen and evaluated the patient today. I Discussed the case with the resident and agree with the resident's findings I edited the assessment and plan as necessary as documented in the resident's note. per , patient at baseline mental status , currently being treated for UTI , consider discharge in AM if WBC remains normal and not spiking fevers Past Medical History Past Medical History: Coronary Artery Disease (CAD), Cancer, COPD, Hyperlipidemia Additional Past Medical History / Comment(s): 3 cervical compressed vertabrae,LEFT GROIN HERNIA WITH SEVERE GROIN AND LEG PAIN, tonsil ca History of Any Multi-Drug Resistant Organisms: None Reported Past Surgical History: Orthopedic Surgery Additional Past Surgical History / Comment(s): orif right ankle,KNEE SURGERY ,CARDIAC STENTS Past Anesthesia/Blood Transfusion Reactions: No Reported Reaction Past Psychological History: Anxiety Smoking Status: Current every day smoker Past Alcohol Use History: None Reported Past Drug Use History: None Reported - Past Family History Mother Family Medical History: Cancer Additional Family Medical History / Comment(s): from colon cancer Father Additional Family Medical History / Comment(s): heart problems when was young Medications and Allergies Home Medications Medication Instructions Recorded Confirmed Type Omeprazole [PriLOSEC] 40 mg PO DAILY #14 cap 12/18/19 07/08/24 Rx Ezetimibe [Zetia] 10 mg PO DAILY 05/23/23 07/08/24 History Metoprolol Succinate [Metoprolol 12.5 mg PO DAILY 05/23/23 07/08/24 History Succinate ER] gemfibroziL [Lopid] 600 mg PO BID 05/23/23 07/08/24 History Aspirin EC [Ecotrin Low Dose] 81 mg PO DAILY 07/08/24 07/08/24 History Atorvastatin [Lipitor] 80 mg PO HS 07/08/24 07/08/24 History HYDROcodone/APAP 10-325MG [[place] 1 tab PO Q6H 07/08/24 07/08/24 History 10-325] Lactulose [Constulose] 20 gm PO DIRECTED 07/08/24 07/08/24 History PARoxetine HCL [Paxil] 10 mg PO DAILY 07/08/24 07/08/24 History Tamsulosin [Flomax] 0.4 mg PO DAILY 07/08/24 07/08/24 History hydrOXYzine HCL [Atarax] 25 mg PO Q8H 07/08/24 07/08/24 History Allergies Allergy/AdvReac Type Severity Reaction Status Date / Time Penicillins Allergy Unknown Verified 07/22/23 11:00 Physical Exam Vitals: Vital Signs Temp Pulse Resp BP Pulse Ox 07/08/24 21:00 99.0 F 88 18 112/76 98 07/08/24 18:04 99.3 F 99 18 110/78 99 07/08/24 17:54 99.0 F 99 16 110/78 97 Intake and Output 07/08/24 07/08/24 07/09/24 14:59 22:59 06:59 Other: Weight 90.718 kg Results CBC & Chem 7: 07/08/24 18:32 07/08/24 18:32 Labs: Abnormal Lab Results - Last 24 Hours (Table) 07/08/24 07/08/24 07/08/24 Range/Units 18:32 18:32 18:32 RBC 3.66 L (4.30-5.90) m/uL Hgb 11.5 L (13.0-17.5) gm/dL Hct 37.9 L (39.0-53.0) % MCV 103.5 H (80.0-100.0) fL MCHC 30.4 L (31.0-37.0) g/dL Plt Count 509 H (150-450) k/uL Sodium 133 L (137-145) mmol/L Carbon Dioxide 21 L (22-30) mmol/L BUN 5 L (9-20) mg/dL Creatinine 0.45 L (0.66-1.25) mg/dL Glucose 101 H (74-99) mg/dL Plasma Lactic Acid Luis (0.7-2.0) mmol/L Alkaline Phosphatase 211 H (38-126) U/L Albumin 3.1 L (3.5-5.0) g/dL Urine Protein Trace H (Negative) Ur Leukocyte Esterase Large H (Negative) Urine WBC 57 H (0-5) /hpf Urine Bacteria Few H (None) /hpf Hyaline Casts 21 H (0-2) /lpf Urine Mucus Many H (None) /hpf Urine Opiates Screen (NotDetected) U Tricyclic Antidepress (NotDetected) U Benzodiazepines Scrn (NotDetected) 07/08/24 07/08/24 07/08/24 Range/Units 18:32 18:32 21:50 RBC (4.30-5.90) m/uL Hgb (13.0-17.5) gm/dL Hct (39.0-53.0) % MCV (80.0-100.0) fL MCHC (31.0-37.0) g/dL Plt Count (150-450) k/uL Sodium (137-145) mmol/L Carbon Dioxide (22-30) mmol/L BUN (9-20) mg/dL Creatinine (0.66-1.25) mg/dL Glucose (74-99) mg/dL Plasma Lactic Acid Luis 2.5 H* 2.6 H* (0.7-2.0) mmol/L Alkaline Phosphatase (38-126) U/L Albumin (3.5-5.0) g/dL Urine Protein (Negative) Ur Leukocyte Esterase (Negative) Urine WBC (0-5) /hpf Urine Bacteria (None) /hpf Hyaline Casts (0-2) /lpf Urine Mucus (None) /hpf Urine Opiates Screen Detected H (NotDetected) U Tricyclic Antidepress Detected H (NotDetected) U Benzodiazepines Scrn Detected H (NotDetected)
[2024-07-09] MEDS: PANTOPRAZOLE 40 MG TABLET PO SCH (06:39)
--- NOTE | 2024-07-09 07:45 | US ---
EXAMINATION TYPE: US kidneys/renal and bladder DATE OF EXAM: 07/09/2024 COMPARISON: CT: 10/12/23 CLINICAL INDICATION: Male, 64 years old with history of UTI indwelling catheter; UTI TECHNIQUE: Grayscale imaging of the bilateral kidneys and urinary bladder: FINDINGS: EXAM MEASUREMENTS: Right Kidney: 9.3 x 4.1 x 4.6 cm Left Kidney: 10.5 x 4.7 x 5.7 cm Right Kidney: No hydronephrosis or masses seen. Limited due to pt positioning. Left Kidney: No hydronephrosis or masses seen Bladder: not seen due to perez There is no evidence for hydronephrosis at this point in time. No nephrolithiasis is seen. No yelitza s are identified. The urinary bladder is anechoic. IMPRESSION: No evidence for acute process. [facility], , 07/09/2024 7:43 AM
[2024-07-09] MEDS: ENOXAPARIN 40 MG/0.4 ML SYRINGE SQ SCH (08:33)
[2024-07-09] MEDS: TAMSULOSIN 0.4 MG CAP.ER.24H PO SCH (08:33)
[2024-07-09] MEDS: ASPIRIN 81 MG PO SCH (08:33)
[2024-07-09] MEDS: METOPROLOL SUCCINATE (ER) 25 MG TAB.ER.24H PO SCH (08:33)
[2024-07-09] MEDS: EZETIMIBE 10 MG TAB PO SCH (08:33)
[2024-07-09] MEDS: FENOFIBRATE 160 MG TAB PO SCH (08:33)
[2024-07-09] MEDS: PARoxetine 10 MG TAB PO SCH (08:33)
[2024-07-09 08:42] LABS: Basophils # (A) 0.03 X 10*3/uL (0.00-0.10); Basophils % (A) 0.6 %; Eosinophils # (A) 0.18 X 10*3/uL (0.04-0.35); Eosinophils % (A) 3.6 %; HCT 36.8 % (39.6-50.0); HGB 11.7 g/dL (13.0-17.0); Lymphocytes # (A) 1.12 X 10*3/uL (0.90-5.00); Lymphocytes % (A) 22.7 %; MCH 32.5 pg (27.0-32.0); MCHC 31.8 g/dL (32.0-37.0); MCV 102.2 FL (80.0-97.0); Mean Platelet Volume 9.6 FL (9.5-12.2); Monocytes # (A) 0.57 X 10*3/uL (0.20-1.00); Monocytes % (A) 11.5 %; NRBC Per 100 WBC 0 X 10*3/uL (0.00-0.01); Neutrophils % (A) 60.8 %; Platelet Count 532 X 10*3/uL (140-440); RDW 15.3 % (11.5-14.5); WBC 4.94 X 10*3/uL (4.50-10.00)
[2024-07-09 09:16] LABS: % Iron Saturation 23.97 (15.00-50.00); ALT 16 U/L (10-49); AST 19 U/L (14-35); Albumin 3.2 g/dL (3.8-4.9); Alkaline Phosphatase 195 U/L (41-126); BUN/Creat Ratio <7.00 Ratio (12.00-20.00); Blood Urea Nitrogen <3.5 mg/dL (9.0-27.0); Calcium 9.3 mg/dL (8.7-10.3); Carbon Dioxide 20.3 mmol/L (21.6-31.8); Chloride 106 mmol/L (96-109); Globulin 2.9 g/dL (1.6-3.3); Glucose 83 mg/dL (70-110); Potassium 3.6 mmol/L (3.5-5.5); Sodium 140 mmol/L (135-145); Total Bilirubin 0.2 mg/dL (0.3-1.2); Total Protein 6.1 g/dL (6.2-8.2)
--- NOTE | 2024-07-09 13:40 | P.PN ---
Subjective Progress Note Date: 07/09/24 appears confused but able to name his and children nursing staff at bedside Objective - Vital Signs Vital signs: Vital Signs Temp 99.0 F 07/09/24 07:00 Pulse 107 H 07/09/24 07:00 Resp 18 07/09/24 07:00 BP 146/84 07/09/24 07:00 Pulse Ox 99 07/09/24 07:00 FiO2 Intake & Output 07/08/24 07/09/24 07/09/24 18:59 06:59 18:59 Intake Total 50 Output Total 630 Balance -630 50 Weight 90.718 kg Intake: Oral 50 Output: Urine 630 Other: Voiding Method Indwelling Catheter Indwelling Catheter - Exam GENERAL: Resting comfortably in bed. EYES: PERRL, no scleral injection or icterus. No vision loss HENT: Normocephalic, atraumatic, hearing grossly intact, moist mucous membranes, poor dentition. NECK: No tracheal deviation, full range of motion. CARDIOVASCULAR: S1 and S2 present. No murmurs, rubs, or gallops. PULMONARY: Chest is clear to auscultation, no wheezing, rhonchi, or crackles. ABDOMEN: No tenderness to palpation. No palpable organomegaly. MUSCULOSKELETAL: No apparent joint swelling and deformities. EXTREMITIES: No apparent cyanosis, clubbing. No pedal edema. NEUROLOGICAL: Alert and oriented x 1-2. Able to name family names. Gross neurological examination with no apparent focal deficits. SKIN: No apparent rashes. - Labs CBC & Chem 7: 07/09/24 05:35 07/09/24 05:35 Labs: Abnormal Lab Results - Last 24 Hours (Table) 07/08/24 07/08/24 07/08/24 Range/Units 18:32 18:32 18:32 RBC 3.66 L (4.30-5.90) m/uL Hgb 11.5 L (13.0-17.5) gm/dL Hct 37.9 L (39.0-53.0) % MCV 103.5 H (80.0-100.0) fL MCH (27.0-32.0) pg MCHC 30.4 L (31.0-37.0) g/dL RDW (11.5-14.5) % Plt Count 509 H (150-450) k/uL Sodium 133 L (137-145) mmol/L Carbon Dioxide 21 L (22-30) mmol/L Anion Gap (4.00-12.00) mmol/L BUN 5 L (9-20) mg/dL Creatinine 0.45 L (0.66-1.25) mg/dL BUN/Creatinine Ratio (12.00-20.00) Ratio Glucose 101 H (74-99) mg/dL Plasma Lactic Acid Luis (0.7-2.0) mmol/L Iron (65-175) UG/DL Transferrin (204.0-354.0) mg/dL Ferritin (22.0-322.0) ng/mL Total Bilirubin (0.3-1.2) mg/dL Alkaline Phosphatase 211 H (38-126) U/L Total Protein (6.2-8.2) g/dL Albumin 3.1 L (3.5-5.0) g/dL Albumin/Globulin Ratio (1.60-3.17) Ratio Urine Protein Trace H (Negative) Ur Leukocyte Esterase Large H (Negative) Urine WBC 57 H (0-5) /hpf Urine Bacteria Few H (None) /hpf Hyaline Casts 21 H (0-2) /lpf Urine Mucus Many H (None) /hpf Urine Opiates Screen (NotDetected) U Tricyclic Antidepress (NotDetected) U Benzodiazepines Scrn (NotDetected) 07/08/24 07/08/24 07/08/24 Range/Units 18:32 18:32 21:50 RBC (4.30-5.90) m/uL Hgb (13.0-17.5) gm/dL Hct (39.0-53.0) % MCV (80.0-100.0) fL MCH (27.0-32.0) pg MCHC (31.0-37.0) g/dL RDW (11.5-14.5) % Plt Count (150-450) k/uL Sodium (137-145) mmol/L Carbon Dioxide (22-30) mmol/L Anion Gap (4.00-12.00) mmol/L BUN (9-20) mg/dL Creatinine (0.66-1.25) mg/dL BUN/Creatinine Ratio (12.00-20.00) Ratio Glucose (74-99) mg/dL Plasma Lactic Acid Luis 2.5 H* 2.6 H* (0.7-2.0) mmol/L Iron (65-175) UG/DL Transferrin (204.0-354.0) mg/dL Ferritin (22.0-322.0) ng/mL Total Bilirubin (0.3-1.2) mg/dL Alkaline Phosphatase (38-126) U/L Total Protein (6.2-8.2) g/dL Albumin (3.5-5.0) g/dL Albumin/Globulin Ratio (1.60-3.17) Ratio Urine Protein (Negative) Ur Leukocyte Esterase (Negative) Urine WBC (0-5) /hpf Urine Bacteria (None) /hpf Hyaline Casts (0-2) /lpf Urine Mucus (None) /hpf Urine Opiates Screen Detected H (NotDetected) U Tricyclic Antidepress Detected H (NotDetected) U Benzodiazepines Scrn Detected H (NotDetected) 07/09/24 07/09/24 07/09/24 Range/Units 05:35 05:35 05:35 RBC 3.60 L (4.30-5.90) m/uL Hgb 11.7 L (13.0-17.5) gm/dL Hct 36.8 L (39.0-53.0) % MCV 102.2 H (80.0-100.0) fL MCH 32.5 H (27.0-32.0) pg MCHC 31.8 L (31.0-37.0) g/dL RDW 15.3 H (11.5-14.5) % Plt Count 532 H (150-450) k/uL Sodium (137-145) mmol/L Carbon Dioxide 20.3 L (22-30) mmol/L Anion Gap 13.70 H (4.00-12.00) mmol/L BUN <3.5 L (9-20) mg/dL Creatinine 0.5 L (0.66-1.25) mg/dL BUN/Creatinine Ratio <7.00 L (12.00-20.00) Ratio Glucose (74-99) mg/dL Plasma Lactic Acid Luis (0.7-2.0) mmol/L Iron 64 L (65-175) UG/DL Transferrin 191.0 L (204.0-354.0) mg/dL Ferritin 546.0 H (22.0-322.0) ng/mL Total Bilirubin 0.2 L (0.3-1.2) mg/dL Alkaline Phosphatase 195 H (38-126) U/L Total Protein 6.1 L (6.2-8.2) g/dL Albumin 3.2 L (3.5-5.0) g/dL Albumin/Globulin Ratio 1.10 L (1.60-3.17) Ratio Urine Protein (Negative) Ur Leukocyte Esterase (Negative) Urine WBC (0-5) /hpf Urine Bacteria (None) /hpf Hyaline Casts (0-2) /lpf Urine Mucus (None) /hpf Urine Opiates Screen (NotDetected) U Tricyclic Antidepress (NotDetected) U Benzodiazepines Scrn (NotDetected) Assessment and Plan Plan: #UTI complicated with indwelling catheter present on admission -UA positive for trace protein, leukocyte esterace large, WBC 57, hyaline cast 21 Urine culture pending US kidney bladder reviewed, no hydronephrosis Continue ceftriaxone 2 g daily unremarkable WBC 8.2, stable hemoglobin 11.5, platelets 509, sodium 133, bicarb 21, anion gap 13, BUN 5, creatinine 0.45, glucose 101, lactic acid 2.5 => 2.6 # Chronic encephalopathy, possibly hepatic encephalopathy #History of alcohol use per familiy patient at baseline of his mental status for the past 2 months -Urine tox positive for opiates, TCAs, benzodiazepine -Lactate 2.5 => 2.6 Continue lactulose 20 g p.o. twice daily Ammonia WNL - CT head independently interpreted showed no acute intracranial process. #Generalized abdominal pain, resolved #Isolated elevated ALP Initial ALP 211 Hold Zofran, QTc prolonged Monitor CMP #Macrocytic anemia #Thrombocytosis Hemoglobin 11.5, MCV 103.5, platelets 5 9 Thiamine, folate, B12 ordered Monitor CBC Chronic Medical Conditions #Coronary artery disease - Resume home Aspirin, Atorvastatin, Metoprolol #Hyperlipidemia resume home medications #GERD- Resume home Pantoprazole #Anxiety/Depression- Resume home medication #BPH- Resume home Tamsulosin DVT ppx: Subq Lovenox 40 meq daily Code status: Full code
[2024-07-09 15:08] VITALS: BMI 26.4
[2024-07-10 11:19] LABS: Basophils % (A) 1 %; Eosinophils # (A) 0.3 k/uL (0-0.7); Eosinophils % (A) 5 %; HCT 35.9 % (39.0-53.0); HGB 11.3 gm/dL (13.0-17.5); Hypochromasia Moderate; Lymphocytes # (A) 0.9 k/uL (1.0-4.8); Lymphocytes % (A) 15 %; MCH 32.6 pg (25.0-35.0); MCHC 31.3 g/dL (31.0-37.0); MCV 104.1 fL (80.0-100.0); Macrocytosis Moderate; Monocytes # (A) 0.4 k/uL (0-1.0); Monocytes % (A) 7 %; Neutrophils # (A) 4.2 k/uL (1.3-7.7); Neutrophils % (A) 71 %; Platelet Count 500 k/uL (150-450); RBC 3.45 m/uL (4.30-5.90); RDW 15.1 % (11.5-15.5); WBC 5.9 k/uL (3.8-10.6)
[2024-07-10 11:42] LABS: African American GFR (CKD) >90 (>60 ml/min/1.73 sqM); Anion Gap 11 mmol/L; Blood Urea Nitrogen <2 mg/dL (9-20); Calcium 8.9 mg/dL (8.4-10.2); Carbon Dioxide 19 mmol/L (22-30); Chloride 109 mmol/L (98-107); Glucose 97 mg/dL (74-99); Magnesium 1.7 mg/dL (1.6-2.3); Non-African American GFR(CKD) >90 (>60 ml/min/1.73 sqM); Phosphorus 4.2 mg/dL (2.5-4.5); Potassium 3.5 mmol/L (3.5-5.1); Sodium 139 mmol/L (137-145)
--- NOTE | 2024-07-10 15:17 | P.PN ---
Subjective confused but no acute distress Objective - Vital Signs Vital signs: Vital Signs Temp 98.4 F 07/10/24 07:00 Pulse 95 07/10/24 07:00 Resp 18 07/10/24 07:00 BP 129/70 07/10/24 07:00 Pulse Ox 98 07/10/24 07:00 FiO2 Intake & Output 07/09/24 07/10/24 07/10/24 18:59 06:59 18:59 Intake Total 168 236 Output Total 800 725 Balance -632 -725 236 Weight 90.718 kg Intake: Oral 168 236 Output: Urine 800 725 Other: Voiding Method Indwelling Catheter Indwelling Catheter Indwelling Catheter # Bowel Movements 1 1 - Exam GENERAL: Resting comfortably in bed. EYES: PERRL, no scleral injection or icterus. No vision loss HENT: Normocephalic, atraumatic, hearing grossly intact, moist mucous membranes, poor dentition. NECK: No tracheal deviation, full range of motion. CARDIOVASCULAR: S1 and S2 present. No murmurs, rubs, or gallops. PULMONARY: Chest is clear to auscultation, no wheezing, rhonchi, or crackles. ABDOMEN: No tenderness to palpation. No palpable organomegaly. MUSCULOSKELETAL: No apparent joint swelling and deformities. EXTREMITIES: No apparent cyanosis, clubbing. No pedal edema. NEUROLOGICAL: Alert and oriented x 1-2. Able to name family names. Gross neurological examination with no apparent focal deficits. SKIN: No apparent rashes. - Labs CBC & Chem 7: 07/10/24 10:51 07/10/24 10:51 Labs: Abnormal Lab Results - Last 24 Hours (Table) 07/10/24 07/10/24 Range/Units 10:51 10:51 RBC 3.45 L (4.30-5.90) m/uL Hgb 11.3 L (13.0-17.5) gm/dL Hct 35.9 L (39.0-53.0) % MCV 104.1 H (80.0-100.0) fL Plt Count 500 H (150-450) k/uL Lymphocytes # 0.9 L (1.0-4.8) k/uL Chloride 109 H (98-107) mmol/L Carbon Dioxide 19 L (22-30) mmol/L BUN <2 L (9-20) mg/dL Creatinine 0.47 L (0.66-1.25) mg/dL Assessment and Plan Plan: #UTI complicated with indwelling catheter present on admission -UA positive for trace protein, leukocyte esterace large, WBC 57, hyaline cast 21 Urine culture pending US kidney bladder reviewed, no hydronephrosis Continue ceftriaxone 2 g daily unremarkable WBC 8.2, stable hemoglobin 11.5, platelets 509, sodium 133, bicarb 21, anion gap 13, BUN 5, creatinine 0.45, glucose 101, lactic acid 2.5 => 2.6 # Chronic encephalopathy, possibly hepatic encephalopathy #History of alcohol use per familiy patient at baseline of his mental status for the past 2 months -Urine tox positive for opiates, TCAs, benzodiazepine -Lactate 2.5 => 2.6 Continue lactulose 20 g p.o. twice daily Ammonia WNL - CT head independently interpreted showed no acute intracranial process. #Generalized abdominal pain, resolved #Isolated elevated ALP Initial ALP 211 Hold Zofran, QTc prolonged Monitor CMP #Macrocytic anemia #Thrombocytosis Hemoglobin 11.5, MCV 103.5, platelets 5 9 Thiamine, folate, B12 ordered Monitor CBC Chronic Medical Conditions #Coronary artery disease - Resume home Aspirin, Atorvastatin, Metoprolol #Hyperlipidemia resume home medications #GERD- Resume home Pantoprazole #Anxiety/Depression- Resume home medication #BPH- Resume home Tamsulosin DVT ppx: Subq Lovenox 40 meq daily Code status: Full code
[2024-07-10] MEDS ORDERED: ZINC OXIDE PASTE (Z-GUARD) 1 APPLIC TOPICAL PRN (16:14)
[2024-07-11 06:31] VITALS: TEMP 98
[2024-07-11 08:57] VITALS: BP 143/74; PULSE 101; RESP 17
--- NOTE | 2024-07-11 14:37 | P.DS ---
Providers Date of admission: 07/08/24 20:24 Expected date of discharge: 07/11/24 Attending physician: Kendra Leigh MD Primary care physician: Jamel Rg Hospital Course: Complicated UTI Chronic Encephalopathy History of Alcohol Use Generalized Abdominal Pain Elevated Alkaline Phosphotase Macrocytic Anemia Thrombocytosis Coronary artery disease Hyperlipidemia GERD Anxiety and depression BPH Hospital Course: Patient is a 64-year-old male with CAD, COPD, hyperlipidemia, tonsil cancer past radiation [address] Jennings who presents with nausea and vomiting. Labs significant for WBC 8.2, hemoglobin 11.5, platelets 509, sodium 133, bicarb 21, anion gap 13, BUN 5, creatinine 0.45, glucose 101, lactic acid 2.5 => 2.6, ALP 211, UA positive for trace protein, leukocyte esterace large, WBC 57, hyaline cast 21, UDS positive for opiates, TCAs, benzodiazepine. EKG independently interpreted showed sinus rhythm heart rate of 94, prolonged QTc 470, no ST segment elevation or depression seen, no T-wave inversions seen. Chest x-ray done independently interpreted showed no acute cardiopulmonary process. CT head independently interpreted showed no acute intracranial process. Patient was subsequently admitted to the hospital for treatment of complicated urinary tract infection and improved back to baseline with ceftriaxone. Based on his improvement back to baseline, patient was subsequently cleared for discharge home; seen initially by physical therapy who recommended subacute rehab, however, patient's home public health engineer declined rehab services at this time and opted instead for home care services. Patient should follow-up with PCP and complete additional 5 days of cefdinir. I spent 45 minutes coordinating this discharge Gen: In NAD, non-toxic HEENT: normocephalic, atraumatic, hearing acuity is intant, mucous membranes moist CVS: perfusing all extremities well, no pitting edema, Respiratory: symmetric chest expansion, no accessory muscle use, GI: soft, NTTP, ND, : no suprapubic tenderness, no CVA tenderness MSK/Derm: no rashes, cyanosis Neuro: CN II-XII intact, no motor weakness, Plan - Discharge Summary Discharge Rx Participant: No New Discharge Prescriptions: New Acetaminophen Tab [Tylenol] 650 mg PO Q6HR PRN tab PRN Reason: Mild Pain Or Fever > 100.5 Cefdinir [Omnicef] 300 mg PO Q12HR #9 capsule Continue Omeprazole [PriLOSEC] 40 mg PO DAILY #14 cap Metoprolol Succinate [Metoprolol Succinate ER] 12.5 mg PO DAILY Ezetimibe [Zetia] 10 mg PO DAILY Aspirin EC [Ecotrin Low Dose] 81 mg PO DAILY hydrOXYzine HCL [Atarax] 25 mg PO Q8H PARoxetine HCL [Paxil] 10 mg PO DAILY Tamsulosin [Flomax] 0.4 mg PO DAILY gemfibroziL [Lopid] 600 mg PO BID Atorvastatin [Lipitor] 80 mg PO HS HYDROcodone/APAP 10-325MG [Lynx 10-325] 1 tab PO Q6H Lactulose [Constulose] 20 gm PO DIRECTED Discharge Medication List Omeprazole [PriLOSEC] 40 mg PO DAILY #14 cap 12/18/19 [Rx] Ezetimibe [Zetia] 10 mg PO DAILY 05/23/23 [History] Metoprolol Succinate [Metoprolol Succinate ER] 12.5 mg PO DAILY 05/23/23 [History] gemfibroziL [Lopid] 600 mg PO BID 05/23/23 [History] Aspirin EC [Ecotrin Low Dose] 81 mg PO DAILY 07/08/24 [History] Atorvastatin [Lipitor] 80 mg PO HS 07/08/24 [History] HYDROcodone/APAP 10-325MG [Lynx 10-325] 1 tab PO Q6H 07/08/24 [History] Lactulose [Constulose] 20 gm PO DIRECTED 07/08/24 [History] PARoxetine HCL [Paxil] 10 mg PO DAILY 07/08/24 [History] Tamsulosin [Flomax] 0.4 mg PO DAILY 07/08/24 [History] hydrOXYzine HCL [Atarax] 25 mg PO Q8H 07/08/24 [History] Acetaminophen Tab [Tylenol] 650 mg PO Q6HR PRN tab 07/11/24 [Rx] Cefdinir [Omnicef] 300 mg PO Q12HR #9 capsule 07/11/24 [Rx] Follow up Appointment(s)/Referral(s): Jamel Rg MD [Primary Care Provider] - 1-2 days Residential Home,Health [NON-STAFF] - As Needed Patient Instructions/Handouts: Urinary Tract Infection in Men (DC)
== END 2024-07-11 18:32 | disposition home health service (06) ==
LOC: EC 17:43 → 6NMEDSUR 20:24
PROVIDERS: ADMIT Internal Medicine; ATTEND Internal Medicine
DX: N39.0 Urinary tract infection, site not specified (principal); G93.40 Encephalopathy, unspecified; R10.84 Generalized abdominal pain; R74.8 Abnormal levels of other serum enzymes; N40.0 Benign prostatic hyperplasia without lower urinary tract symptoms; D53.9 Nutritional anemia, unspecified; D75.839 Thrombocytosis, unspecified; E78.5 Hyperlipidemia, unspecified; F17.200 Nicotine dependence, unspecified, uncomplicated; F32.A Depression, unspecified; F41.9 Anxiety disorder, unspecified; I25.10 Atherosclerotic heart disease of native coronary artery without angina pectoris; J44.9 Chronic obstructive pulmonary disease, unspecified; K21.9 Gastro-esophageal reflux disease without esophagitis; Z88.0 Allergy status to penicillin; Z79.899 Other long term (current) drug therapy; Z79.82 Long term (current) use of aspirin; Z85.818 Personal history of malignant neoplasm of other sites of lip, oral cavity, and pharynx; Z95.5 Presence of coronary angioplasty implant and graft
CPT/HCPCS: 96365; 96366 ×3; 96372 ×3; 96376; 96361; 99285; 36415; 93005; 97530; 97162; 97166; 82747; 84425; 80053 ×2; 80048; 82607; 82728; 82140; 82150; 83540; 83550; 83605 ×2; 83690; 83735; 84100; 85025 ×3; 81001; 80306; 71045; 76770; 70450; G0378 ×4; J0696 ×4; J1650 ×3

== ENCOUNTER 2024-08-03 20:59 | Inpatient (IN) | payer BC ==
--- NOTE | 2024-08-03 21:24 | ED ---
Altered Mental Status HPI - General Chief Complaint: Altered Mental Status Stated Complaint: Altered Mental Status Time Seen by Provider: 08/03/24 21:07 Source: patient, family, EMS, RN notes reviewed, old records reviewed, Caregiver Mode of arrival: EMS Limitations: altered mental status - History of Present Illness Initial Comments: This is a 64-year-old male presenting with caregiver for altered mental status history of similar altered mental status and altered mentation with recent UTI hospital admission as well concern for liver disease, patient is brought in by family with significant decline today decline in mental status usually ANO x 4 today ANO x 3 patient is unable to provide accurate her history here MD Complaint: altered mental status, confusion, decreased responsiveness, weakness -: hour(s) Severity: moderate Consistency of Symptoms: getting worse Context: alcohol abuse (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), history of similar presentation, liver disease Associated Symptoms: denies other symptoms - Related Data Home Medications Medication Instructions Recorded Confirmed Ezetimibe [Zetia] 10 mg PO DAILY 05/23/23 08/04/24 Metoprolol Succinate [Metoprolol 12.5 mg PO DAILY 05/23/23 08/04/24 Succinate ER] gemfibroziL [Lopid] 600 mg PO BID 05/23/23 08/04/24 Aspirin EC [Ecotrin Low Dose] 81 mg PO DAILY 07/08/24 08/04/24 Atorvastatin [Lipitor] 80 mg PO HS 07/08/24 08/04/24 Lactulose [Constulose] 10 gm PO DAILY 07/08/24 08/04/24 PARoxetine HCL [Paxil] 10 mg PO DAILY 07/08/24 08/04/24 Tamsulosin [Flomax] 0.4 mg PO DAILY 07/08/24 08/04/24 hydrOXYzine HCL [Atarax] 25 mg PO Q8H 07/08/24 08/04/24 Fluconazole [Diflucan] 200 mg PO DAILY 08/04/24 08/04/24 Previous Rx's Medication Instructions Recorded Omeprazole [PriLOSEC] 40 mg PO DAILY #14 cap 12/18/19 Acetaminophen Tab [Tylenol] 650 mg PO Q6HR PRN tab 07/11/24 Folic Acid 1 mg PO DAILY #30 tab 08/09/24 HYDROcodone/APAP 10-325MG [[place] 1 tab PO Q8H #0 08/09/24 10-325] Multivitamins, Thera [Multivitamin 1 each PO DAILY #30 tab 08/09/24 (formulary)] Nicotine 14Mg/24Hr Patch [Habitrol] 1 patch TRANSDERM DAILY patch 08/09/24 QUEtiapine [SEROquel] 25 mg PO HS #30 tab 08/09/24 Thiamine [Vitamin B-1] 100 mg PO DAILY #30 tab 08/09/24 Allergies Allergy/AdvReac Type Severity Reaction Status Date / Time Penicillins Allergy Unknown Verified 08/04/24 11:30 Review of Systems ROS Statement: Those systems with pertinent positive or pertinent negative responses have been documented in the HPI. ROS Other: All systems not noted in ROS Statement are negative. Past Medical History Past Medical History: Coronary Artery Disease (CAD), Cancer, COPD, Hyperlipidemia Additional Past Medical History / Comment(s): 3 cervical compressed vertabrae,LE FT GROIN HERNIA WITH SEVERE GROIN AND LEG PAIN, tonsil ca History of Any Multi-Drug Resistant Organisms: None Reported Past Surgical History: Heart Catheterization, Orthopedic Surgery Additional Past Surgical History / Comment(s): orif right ankle,KNEE SURGERY ,CARDIAC STENTS Past Anesthesia/Blood Transfusion Reactions: No Reported Reaction Past Psychological History: Anxiety Smoking Status: Former smoker Past Alcohol Use History: None Reported Past Drug Use History: None Reported - Past Family History Mother Family Medical History: Cancer Additional Family Medical History / Comment(s): from colon cancer Father Additional Family Medical History / Comment(s): heart problems when was young General Exam Limitations: altered mental status General appearance: alert, in no apparent distress Head exam: Present: atraumatic, normocephalic, normal inspection Eye exam: Present: normal appearance, PERRL, EOMI. Absent: scleral icterus, conjunctival injection, periorbital swelling ENT exam: Present: normal exam, mucous membranes moist Neck exam: Present: normal inspection. Absent: tenderness, meningismus, ly mphadenopathy Respiratory exam: Present: normal lung sounds bilaterally. Absent: respiratory distress, wheezes, rales, rhonchi, stridor Cardiovascular Exam: Present: regular rate, normal rhythm, normal heart sounds. Absent: systolic murmur, diastolic murmur, rubs, gallop, clicks GI/Abdominal exam: Present: soft, normal bowel sounds. Absent: distended, tenderness, guarding, rebound, rigid Extremities exam: Present: normal inspection, full ROM, normal capillary refill. Absent: tenderness, pedal edema, joint swelling, calf tenderness Back exam: Present: normal inspection Neurological exam: Present: alert, oriented X3, CN II-XII intact Psychiatric exam: Present: normal affect, normal mood Skin exam: Present: warm, dry, intact, normal color. Absent: rash Course Vital Signs 08/03/24 08/03/24 08/04/24 21:08 22:55 00:00 Temperature 98.4 F Pulse Rate 78 82 97 Respiratory 20 18 20 Rate Blood Pressure 118/79 104/72 112/74 O2 Sat by Pulse 97 96 96 Oximetry 08/04/24 08/04/24 08/04/24 01:00 03:16 05:03 Temperature 99.1 F Pulse Rate 97 90 82 Respiratory 18 17 14 Rate Blood Pressure 110/73 115/67 O2 Sat by Pulse 98 94 L Oximetry 08/04/24 08/04/24 08/04/24 07:42 09:43 12:41 Temperature Pulse Rate 77 77 89 Respiratory 21 17 Rate Blood Pressure 112/69 94/66 O2 Sat by Pulse 98 98 100 Oximetry 08/04/24 08/04/24 08/04/24 14:17 19:08 20:26 Temperature Pulse Rate 95 97 86 Respiratory 18 19 18 Rate Blood Pressure 119/68 127/64 O2 Sat by Pulse 97 99 99 Oximetry 08/05/24 08/05/24 01:32 06:04 Temperature Pulse Rate 91 93 Respiratory 18 18 Rate Blood Pressure 121/67 127/66 O2 Sat by Pulse 97 99 Oximetry - Reevaluation(s) Reevaluation #1: 08/03/24 22:31 Medical records reviewed Prior hospitalization including UTI and altered mental status with concern for liver disease is reviewed Reevaluation #2: 08/03/24 22:31 Patient has no improvement in symptoms Reevaluation #3: 08/03/24 22:31 Family informed of results questions answered Reevaluation #4: Was pt. sent in by a medical professional or institution (, PA, [employer], urgent care, hospital, or skilled nursing...) When possible be specific @ -no Did you speak to anyone other than the patient for history (EMS, parent, family, police, friend...)? What history was obtained from this source @ -no Did you review nursing and triage notes (agree or disagree)? Why? @ -agree Are old charts reviewed (outside hosp., previous admission, EMS record, old EKG, old radiological studies, urgent care reports/EKG's, skilled nursing records)? Report findings @ -yes Differential Diagnosis (chest pain, altered mental status, abdominal pain women, abdominal pain men, vaginal bleeding, weakness, fever, dyspnea, syncope, headache, dizziness, GI bleed, back pain, seizure, CVA, palpatations, mental health, musculoskeletal)? @ -prior EKG interpreted by me (3pts min.). @ -yes X-rays interpreted by me (1pt min.). @ -yes yes positive pulmonary vascular congestion CT interpreted by me (1pt min.). @ -He has negative for acute disease U/S interpreted by me (1pt. min.). @ -no What testing was considered but not performed or refused? (CT, X-rays, U/S, labs)? Why? @ -none What meds were considered but not given or refused? Why? @ -none Did you discuss the management of the patient with other professionals (professionals i.e. , PA, [employer], lab, RT, psych nurse, clinical social work therapist, merchandising manager, teacher, aircraft electronics technical officer, casey saw operator)? Give summary @ -no Was smoking cessation discussed for >3mins.? @ -no Was critical care preformed (if so, how long)? @ -no Were there social determinants of health that impacted care today? How? (Homelessness, low income, unemployed, alcoholism, drug addiction, transportation, low edu. Level, literacy, decrease access to med. care, custodial, rehab)? @ -none Was there de-escalation of care discussed even if they declined (Discuss DNR or withdrawal of care, Hospice)? DNR status @ -no What co-morbidities impacted this encounter? (DM, HTN, Smoking, COPD, CAD, Cancer, CVA, ARF, Chemo, Hep., AIDS, mental health diagnosis, sleep apnea, morbid obesity)? @ -none Was patient admitted / discharged? Hospital course, mention meds given and route, prescriptions, significant lab abnormalities, going to OR and other pertinent info. @ - 64 male to ER for evaluation of altered mental status. Patient is usually ANO x 4 today ANO x 2 recent hospital admission for altered mental status with UTI, significant altered mental status evidence of malnutrition and severe dehydration on exam will admit Admitted Undiagnosed new problem with uncertain prognosis? @ -no Drug Therapy requiring intensive monitoring for toxicity (Heparin, Nitro, Insulin, Cardizem)? @ -no Were any procedures done? @ -no Diagnosis/symptom? @ -UTI, altered mental status Acute, or Chronic, or Acute on Chronic? @ -Acute Uncomplicated (without systemic symptoms) or Complicated (systemic symptoms)? @ -Complicated Side effects of treatment? @ -no Exacerbation, Progression, or Severe Exacerbation? @ -exacerbation Poses a threat to life or bodily function? How? (Chest pain, [place], [place], pneumonia, PE, COPD, DKA, ARF, appy, cholecystitis, CVA, Diverticulitis, Homicidal, Suicidal, threat to staff... and all critical care pts) @ -yes extremes of age comorbid conditions Reevaluation #5: Differential Altered Mental Status: Hypoglycemia, DKA, hypercapnia, ETOH, overdose, CO poisoning, trauma, myxedema coma, HTN encephalopathy, infection, encephalitis, psychosis, intercranial hemorrhage, hepatic encephalopathy, meningitis, CVA, this is not meant to be an all-inclusive list - Consultations Consultation #1: Spoke with [facility] who agrees to admit this patient Medical Decision Making - Medical Decision Making 64 male to ER for evaluation of altered mental status. Patient is usually ANO x 4 today ANO x 2 recent hospital admission for altered mental status with UTI, significant altered mental status evidence of malnutrition and severe dehydration on exam will admit - Lab Data Result diagrams: 08/09/24 06:59 08/09/24 06:59 Lab Results 08/03/24 08/03/24 08/03/24 Range/Units 21:15 21:15 21:15 WBC 10.2 (3.8-10.6) k/uL RBC 3.61 L (4.30-5.90) m/uL Hgb 11.5 L (13.0-17.5) gm/dL Hct 35.7 L (39.0-53.0) % MCV 99.0 D (80.0-100.0) fL MCH 31.8 (25.0-35.0) pg MCHC 32.1 (31.0-37.0) g/dL RDW 14.8 (11.5-15.5) % Plt Count 379 (150-450) k/uL MPV 7.8 Neutrophils % 77 % Lymphocytes % 11 % Monocytes % 7 % Eosinophils % 3 % Basophils % 1 % Neutrophils # 7.8 H (1.3-7.7) k/uL Lymphocytes # 1.1 (1.0-4.8) k/uL Monocytes # 0.7 (0-1.0) k/uL Eosinophils # 0.3 (0-0.7) k/uL Basophils # 0.1 (0-0.2) k/uL PT 12.7 H (10.0-12.5) sec INR 1.2 H (<1.2) APTT 27.4 (22.0-30.0) sec Sodium 132 L (137-145) mmol/L Potassium 3.6 (3.5-5.1) mmol/L Chloride 101 (98-107) mmol/L Carbon Dioxide 24 (22-30) mmol/L Anion Gap 7 mmol/L BUN 5 L (9-20) mg/dL Creatinine 0.52 L (0.66-1.25) mg/dL Est GFR (CKD-EPI)AfAm >90 (>60 ml/min/1.73 sqM) Est GFR (CKD-EPI)NonAf >90 (>60 ml/min/1.73 sqM) Glucose 64 L (74-99) mg/dL Calcium 8.7 (8.4-10.2) mg/dL Total Bilirubin 0.3 (0.2-1.3) mg/dL AST 24 (17-59) U/L ALT 17 (4-49) U/L Alkaline Phosphatase 142 H (38-126) U/L Ammonia (<30) umol/L Troponin I (0.000-0.034) ng/mL Total Protein 5.3 L (6.3-8.2) g/dL Albumin 2.5 L (3.5-5.0) g/dL Serum Alcohol <10 mg/dL 08/03/24 08/03/24 Range/Units 21:15 21:15 WBC (3.8-10.6) k/uL RBC (4.30-5.90) m/uL Hgb (13.0-17.5) gm/dL Hct (39.0-53.0) % MCV (80.0-100.0) fL MCH (25.0-35.0) pg MCHC (31.0-37.0) g/dL RDW (11.5-15.5) % Plt Count (150-450) k/uL MPV Neutrophils % % Lymphocytes % % Monocytes % % Eosinophils % % Basophils % % Neutrophils # (1.3-7.7) k/uL Lymphocytes # (1.0-4.8) k/uL Monocytes # (0-1.0) k/uL Eosinophils # (0-0.7) k/uL Basophils # (0-0.2) k/uL PT (10.0-12.5) sec INR (<1.2) APTT (22.0-30.0) sec Sodium (137-145) mmol/L Potassium (3.5-5.1) mmol/L Chloride (98-107) mmol/L Carbon Dioxide (22-30) mmol/L Anion Gap mmol/L BUN (9-20) mg/dL Creatinine (0.66-1.25) mg/dL Est GFR (CKD-EPI)AfAm (>60 ml/min/1.73 sqM) Est GFR (CKD-EPI)NonAf (>60 ml/min/1.73 sqM) Glucose (74-99) mg/dL Calcium (8.4-10.2) mg/dL Total Bilirubin (0.2-1.3) mg/dL AST (17-59) U/L ALT (4-49) U/L Alkaline Phosphatase (38-126) U/L Ammonia 16 (<30) umol/L Troponin I <0.012 (0.000-0.034) ng/mL Total Protein (6.3-8.2) g/dL Albumin (3.5-5.0) g/dL Serum Alcohol mg/dL - EKG Data -: EKG Interpreted by Me (EKG is sinus 80 MT 120 QRS 114 QTc 462) - Radiology Data Radiology results: report reviewed (CT brain C-spine chest x-ray is negative for acute disease), image reviewed Disposition Clinical Impression: Altered mental status, Delirium due to general medical condition, Dehydration, Malnutrition, Urinary tract infection, Pulmonary vascular congestion Disposition: ADMITTED IP TO THIS [facility] Condition: Fair Is patient prescribed a controlled substance at d/c from ED?: No Time of Disposition: 22:30
[2024-08-03 22:16] LABS: ALT 17 U/L (4-49); AST 24 U/L (17-59); African American GFR (CKD) >90 (>60 ml/min/1.73 sqM); Albumin 2.5 g/dL (3.5-5.0); Alcohol <10 mg/dL; Alkaline Phosphatase 142 U/L (38-126); Anion Gap 7 mmol/L; Blood Urea Nitrogen 5 mg/dL (9-20); Calcium 8.7 mg/dL (8.4-10.2); Carbon Dioxide 24 mmol/L (22-30); Chloride 101 mmol/L (98-107); Glucose 64 mg/dL (74-99); Non-African American GFR(CKD) >90 (>60 ml/min/1.73 sqM); Potassium 3.6 mmol/L (3.5-5.1); Sodium 132 mmol/L (137-145); Total Bilirubin 0.3 mg/dL (0.2-1.3); Total Protein 5.3 g/dL (6.3-8.2)
[2024-08-03] MEDS ORDERED: NALOXONE 0.4 MG/ML 1 ML VIAL IV PRN (22:25)
[2024-08-03] MEDS ORDERED: ONDANSETRON 4 MG/2 ML VIAL IVP PRN (22:25)
[2024-08-03 22:27] LABS: INR 1.2 (<1.2); Partial Thromboplastin Time 27.4 sec (22.0-30.0); Prothrombin Time 12.7 sec (10.0-12.5)
[2024-08-03] MEDS: SODIUM CHLORIDE 0.9% 1,000 ML IV ONE (22:34)
[2024-08-03] MEDS: DEXTROSE 5%-0.45% NACL 1,000 ML IV ONE (23:00)
[2024-08-03] MEDS: SODIUM CHLORIDE 0.9% 500 ML 500 ML IV ONE (23:00)
[2024-08-03 23:15] LABS: Appearance,Urine Clear (Clear); Bacteria,Urine Rare /hpf; Bilirubin,Urine Negative (Negative); Blood,Urine Small (Negative); Calcium Oxalate Crystals,Urine Rare /hpf; Color,Urine Colorless; Glucose,Urine (UA) Negative (Negative); Ketones,Urine Negative (Negative); Leukocyte Esterase,Urine Moderate (Negative); Mucus,Urine Rare /hpf; Nitrite,Urine Negative (Negative); PH, Urine 5.5 (5.0-8.0); Protein,Urine Negative (Negative); RBC,Urine 8 /hpf (0-5); Specific Gravity,Urine 1.005 (1.001-1.035); Urobilinogen,Urine <2.0 mg/dL (<2.0); WBC,Urine 19 /hpf (0-5)
[2024-08-03 23:17] LABS: Amphetamine Screen,Urine Not Detected (NotDetected); Barbiturate Screen,Urine Not Detected (NotDetected); Benzodiazepines Screen,Urine Not Detected (NotDetected); Cocaine Screen,Urine Not Detected (NotDetected); Methadone Screen, Urine Not Detected (NotDetected); Opiate Screen,Urine Detected (NotDetected); Oxycodone Screen, Urine Not Detected (NotDetected); Phencyclidine Screen,Urine Not Detected (NotDetected); Tricyclic Antidepressant,Urine Detected (NotDetected); Urn Cannabinoid Scrn Not Detected (NotDetected)
--- NOTE | 2024-08-03 23:37 | CT ---
EXAM: CT Head Without Intravenous Contrast CLINICAL HISTORY: ams TECHNIQUE: Axial computed tomography images of the head/brain without intravenous contrast. CTDI is 45.3 mGy and DLP is 1108 mGy-cm. This CT exam was performed using one or more of the following dose reduction techniques: automated exposure control, adjustment of the mA and/or kV according to patient size, and/or use of iterative reconstruction technique. COMPARISON: 12-05-2019. FINDINGS: Brain: Age-appropriate generalized atrophy. No acute stroke. Mild supratentorial periventricular and subcortical white matter changes. No acute hemorrhage or abnormal extra-axial fluid collection. Ventricles: No hydrocephalus. No midline shift. Bones/joints: Unremarkable. No acute fracture. Soft tissues: Unremarkable. Sinuses: Unremarkable as visualized. No acute sinusitis. IMPRESSION: No acute abnormality. Non-specific white matter changes, most commonly seen with small vessel disease. EXAM: CT Cervical Spine Without Intravenous Contrast CLINICAL HISTORY: ams TECHNIQUE: Axial computed tomography images of the cervical spine without intravenous contrast. CTDI is 7.8 mGy and DLP is 245.4 mGy-cm. This CT exam was performed using one or more of the following dose reduction techniques: automated exposure control, adjustment of the mA and/or kV according to patient size, and/or use of iterative reconstruction technique. COMPARISON: No relevant prior studies available. FINDINGS: Vertebrae: No acute fracture. Maintenance of height of the vertebral bodies. No subluxation. Reversal of the normal cervical lordosis. Discs/spinal canal/neural foramina: Multilevel degenerative changes, greatest at C5-6 through C7-T1. Most superior stenosis is at C6-7 with central canal and bilateral neural foraminal stenosis. Soft tissues: Prevertebral soft tissues are unremarkable. Atherosclerotic vascular calcifications. IMPRESSION: Reversal of the normal cervical lordosis, most commonly seen with muscle spasm or positioning. Multilevel degenerative changes, overall slightly increased as compared to 12/05/2019.
[2024-08-03 23:39] LABS: Basophils # (A) 0.1 k/uL (0-0.2); Basophils % (A) 1 %; Eosinophils # (A) 0.3 k/uL (0-0.7); Eosinophils % (A) 3 %; HCT 35.7 % (39.0-53.0); HGB 11.5 gm/dL (13.0-17.5); Lymphocytes # (A) 1.1 k/uL (1.0-4.8); Lymphocytes % (A) 11 %; MCH 31.8 pg (25.0-35.0); MCHC 32.1 g/dL (31.0-37.0); Mean Platelet Volume 7.8; Monocytes # (A) 0.7 k/uL (0-1.0); Monocytes % (A) 7 %; Neutrophils # (A) 7.8 k/uL (1.3-7.7); Neutrophils % (A) 77 %; Platelet Count 379 k/uL (150-450); RBC 3.61 m/uL (4.30-5.90); RDW 14.8 % (11.5-15.5); WBC 10.2 k/uL (3.8-10.6)
--- NOTE | 2024-08-03 23:46 | XR ---
EXAM: XR Chest, 1 View CLINICAL HISTORY: altered mental status TECHNIQUE: Frontal view of the chest. COMPARISON: 07/22/2023 FINDINGS: Heart is normal size. Mild prominence of the bilateral upper lobe vessel marking suggesting pulmonary vascular congestion. No definite focal infiltrate. No pleural effusion or pneumothorax. Bones are unchanged.. IMPRESSION: Mild pulmonary vascular congestion.
[2024-08-04] MEDS: HYDROmorphone 1 MG/ML 1 ML SYRINGE IVP PRN (00:07)
[2024-08-04 01:45] LABS: Glucose,Whole Blood 75 mg/dL (70-110)
[2024-08-04] MEDS: LORazepam 2 MG/ML INJ IV STA (03:28)
[2024-08-04 07:19] LABS: Basophils % (A) 1 %; Eosinophils # (A) 0.5 k/uL (0-0.7); Eosinophils % (A) 6 %; HCT 33.6 % (39.0-53.0); HGB 10.5 gm/dL (13.0-17.5); Lymphocytes # (A) 0.9 k/uL (1.0-4.8); Lymphocytes % (A) 12 %; MCH 31.4 pg (25.0-35.0); MCHC 31.4 g/dL (31.0-37.0); Macrocytosis Slight; Mean Platelet Volume 7.5; Monocytes # (A) 0.5 k/uL (0-1.0); Monocytes % (A) 6 %; Neutrophils # (A) 5.5 k/uL (1.3-7.7); Neutrophils % (A) 73 %; Platelet Count 389 k/uL (150-450); RBC 3.36 m/uL (4.30-5.90); RDW 14.9 % (11.5-15.5); WBC 7.4 k/uL (3.8-10.6)
[2024-08-04 07:27] LABS: ALT 15 U/L (4-49); AST 18 U/L (17-59); African American GFR (CKD) >90 (>60 ml/min/1.73 sqM); Albumin 2.2 g/dL (3.5-5.0); Alkaline Phosphatase 145 U/L (38-126); Anion Gap 4 mmol/L; Blood Urea Nitrogen 3 mg/dL (9-20); Calcium 8.2 mg/dL (8.4-10.2); Carbon Dioxide 24 mmol/L (22-30); Chloride 107 mmol/L (98-107); Glucose 82 mg/dL (74-99); Magnesium 1.4 mg/dL (1.6-2.3); Non-African American GFR(CKD) >90 (>60 ml/min/1.73 sqM); Phosphorus 3.9 mg/dL (2.5-4.5); Potassium 3.3 mmol/L (3.5-5.1); Sodium 135 mmol/L (137-145); Total Bilirubin 0.3 mg/dL (0.2-1.3); Total Protein 4.8 g/dL (6.3-8.2)
[2024-08-04] MEDS: LORazepam 2 MG/ML INJ IV ONE (19:04)
[2024-08-05 07:58] LABS: Glucose,Whole Blood 121 mg/dL (70-110)
[2024-08-05 11:27] LABS: Basophils % (A) 0 %; Eosinophils # (A) 0.2 k/uL (0-0.7); Eosinophils % (A) 2 %; HCT 35.1 % (39.0-53.0); HGB 10.8 gm/dL (13.0-17.5); Lymphocytes # (A) 0.8 k/uL (1.0-4.8); Lymphocytes % (A) 8 %; MCH 30.6 pg (25.0-35.0); MCHC 30.7 g/dL (31.0-37.0); MCV 99.7 fL (80.0-100.0); Macrocytosis Slight; Mean Platelet Volume 7.4; Monocytes # (A) 0.6 k/uL (0-1.0); Monocytes % (A) 6 %; Neutrophils # (A) 7.8 k/uL (1.3-7.7); Neutrophils % (A) 83 %; Platelet Count 409 k/uL (150-450); RBC 3.52 m/uL (4.30-5.90); WBC 9.4 k/uL (3.8-10.6)
[2024-08-05 11:51] LABS: ALT 18 U/L (4-49); AST 24 U/L (17-59); African American GFR (CKD) >90 (>60 ml/min/1.73 sqM); Albumin 2.2 g/dL (3.5-5.0); Albumin/Globulin Ratio 0.8; Alkaline Phosphatase 169 U/L (38-126); Anion Gap 6 mmol/L; Blood Urea Nitrogen 4 mg/dL (9-20); Calcium 8.4 mg/dL (8.4-10.2); Carbon Dioxide 25 mmol/L (22-30); Chloride 106 mmol/L (98-107); Globulin 2.7 g/dL; Glucose 132 mg/dL (74-99); Magnesium 1.5 mg/dL (1.6-2.3); Non-African American GFR(CKD) >90 (>60 ml/min/1.73 sqM); Potassium 3.6 mmol/L (3.5-5.1); Sodium 137 mmol/L (137-145); Total Bilirubin 0.3 mg/dL (0.2-1.3); Total Protein 4.9 g/dL (6.3-8.2)
[2024-08-05 12:51] LABS: Influenza A Not Detected (Not Detectd); Influenza B Not Detected (Not Detectd); RSV Not Detected (Not Detectd)
--- NOTE | 2024-08-05 14:47 | US ---
EXAMINATION TYPE: US liver DATE OF EXAM: 08/05/2024 COMPARISON: CT: 12/18/19 CLINICAL INDICATION: Male, 64 years old with history of confusion, hx ETOH abuse, assess for cirrhosi s; Pt would not stay awake during US, no history obtained TECHNIQUE: Grayscale and color Doppler imaging of the right upper quadrant was performed. FINDINGS: EXAM MEASUREMENTS: Liver Length: 20.1 cm Gallbladder Wall: 0.2 cm CBD: 0.25 cm Right Kidney: 12.0 x 4.3 x 4.4 cm STEM DRYER MAINTAINER NOTES:Limited due to pt positioning Pancreas: Obscured by bowel gas Liver: wnl Gallbladder: echogenic focus seen measuring 0.5cm Evidence for sonographic Nogueira's sign: No CBD: wnl Right Kidney: wnl Suboptimal evaluation of pancreas. Hepatomegaly is seen. No suspicious focal hepatic mass or hepatic ductal dilatation. Suspected 5 mm gallbladder polyp. No shadowing mobile gallstones. No right-sided h ydronephrosis. IMPRESSION: Hepatomegaly is now seen. No suspicious intrahepatic mass or intrahepatic ductal dilatation. No ascit es. [facility] Farshad Castillo, , 08/05/2024 2:45 PM
[2024-08-05] MEDS: MULTIVITAMINS, THERA 1 EACH TAB PO SCH (14:56)
[2024-08-05] MEDS: THIAMINE 100 MG TAB PO SCH (14:56)
[2024-08-05] MEDS: FOLIC ACID 1 MG TAB PO SCH (14:56)
--- NOTE | 2024-08-05 16:48 | P.CONS ---
History of Present Illness - Reason for Consult Consult date: 08/05/24 head/neck cancer Requesting physician: Hunter Sarkar - Chief Complaint AMS - History of Present Illness Patient is a 64 year old male with a significant history of tonsillar SCC, who follows with Dr. Jennings. Patient initially presented with enlarging left neck mass,he first noticed around August/2022. He was evaluated by Dr Monteiro,found to have abnormal left tonsil,he had CT soft tissue neck on 03/21/2023 which revealed 2.7 cm mass just posterior to left submandibular gland. 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 He underwent endoscopic evaluation on 04/14/2023,biopsy of left tonsil was positive for squamous cell carcinoma. PET scan on 04/19/2023 showed suspicious uptake in left neck node and base on tongue. Due to significant hearing deficit,he started weekly carbo/taxol with radiation on 05/23/2023,completed mid July/2023. On 10/12/2023,repeat PET scan showed significant response. He was last seen by Dr. Jennings in October 2023, plan was f/u in [address] scans, but pt has had to cancel repeat f/u appts due to not feeling well and has not followed up since. He did have CT chest and neck ordered by rad onc on 04/16/24, which showed overall stable disease. Patient presented to emergency room for altered mental status. HPI is somewhat limited as patient is confused and no family is at bedside. Per speaking to primary RN,, family stated patient has been having progressive weakness over the last 3 to 4 months and has not been able to ambulate at home, having frequent falls and also more recently hallucinating. Of note, pt did have admission earlier this month and was treated for UTI. At today's visit patient was reporting fatigue, and states he thinks he was previously having nausea vomiting, as well as cough and sore throat. Upon admit chest x-ray showed mild pulmonary vascular congestion. CT brain and C-spine without contrast showing no acute abnormality with nonspecific white matter changes. Cervical spine negative for acute fracture. Labs reviewed, WBC 7.4, hemoglobin 10.5, MCV 100.8, platelets are in 89,000. Creatinine 0.48, GFR greater than 90. Ammonia 16. Bilirubin 0.3, AST 18, ALT 15, ALP 145. Ua suspicious for UTI. Urine cultu re ordered. Tmax 99.4. Review of Systems 10 point ROS is negative except as stated in the HPI Past Medical History Past Medical History: Coronary Artery Disease (CAD), Cancer, COPD, Hyperlipidemia Additional Past Medical History / Comment(s): 3 cervical compressed vertabrae,LEFT GROIN HERNIA WITH SEVERE GROIN AND LEG PAIN, tonsil ca History of Any Multi-Drug Resistant Organisms: None Reported Past Surgical History: Heart Catheterization, Orthopedic Surgery Additional Past Surgical History / Comment(s): orif right ankle,KNEE SURGERY ,CARDIAC STENTS Past Anesthesia/Blood Transfusion Reactions: No Reported Reaction Past Psychological History: Anxiety, Depression Smoking Status: Former smoker Past Alcohol Use History: None Reported Past Drug Use History: None Reported - Past Family History Mother Family Medical History: Cancer Additional Family Medical History / Comment(s): from colon cancer Father Additional Family Medical History / Comment(s): heart problems when was yo jesus Medications and Allergies Home Medications Medication Instructions Recorded Confirmed Type Omeprazole [PriLOSEC] 40 mg PO DAILY #14 cap 12/18/19 08/04/24 Rx Ezetimibe [Zetia] 10 mg PO DAILY 05/23/23 08/04/24 History Metoprolol Succinate [Metoprolol 12.5 mg PO DAILY 05/23/23 08/04/24 History Succinate ER] gemfibroziL [Lopid] 600 mg PO BID 05/23/23 08/04/24 History Aspirin EC [Ecotrin Low Dose] 81 mg PO DAILY 07/08/24 08/04/24 History Atorvastatin [Lipitor] 80 mg PO HS 07/08/24 08/04/24 History HYDROcodone/APAP 10-325MG [[place] 1 tab PO Q6H 07/08/24 08/04/24 History 10-325] Lactulose [Constulose] 10 gm PO DAILY 07/08/24 08/04/24 History PARoxetine HCL [Paxil] 10 mg PO DAILY 07/08/24 08/04/24 History Tamsulosin [Flomax] 0.4 mg PO DAILY 07/08/24 08/04/24 History hydrOXYzine HCL [Atarax] 25 mg PO Q8H 07/08/24 08/04/24 History Acetaminophen Tab [Tylenol] 650 mg PO Q6HR PRN tab 07/11/24 08/04/24 Rx Fluconazole [Diflucan] 200 mg PO DAILY 08/04/24 08/04/24 History Allergies Allergy/AdvReac Type Severity Reaction Status Date / Time Penicillins Allergy Unknown Verified 08/04/24 11:30 Physical Exam Vitals: Vital Signs Temp Pulse Pulse Resp BP BP Pulse Ox 08/05/24 13:03 99.1 F 94 17 108/65 99 08/05/24 07:47 99.4 F 101 H 20 135/77 99 08/05/24 06:04 93 18 127/66 99 08/05/24 01:32 91 18 121/67 97 08/04/24 20:26 86 18 127/64 99 08/04/24 19:08 97 19 99 08/04/24 14:17 95 18 119/68 97 Intake and Output 08/04/24 08/05/24 08/05/24 22:59 06:59 14:59 Other: Voiding Method Indwelling Catheter Weight 90.718 kg - Constitutional General appearance: no acute distress - EENT Eyes: anicteric sclerae, EOMI ENT: hearing grossly normal - Respiratory breathing is even and unlabored - Cardiovascular skin warm and dry - Gastrointestinal General gastrointestinal: soft, no tenderness - Integumentary Integumentary: no cyanotic, no jaundiced - Musculoskeletal Musculoskeletal: generalized weakness - Psychiatric A&O x 1-2 Results CBC & Chem 7: 08/05/24 11:07 08/05/24 11:07 Labs: Abnormal Lab Results - Last 24 Hours (Table) 08/05/24 08/05/24 08/05/24 Range/Units 07:57 11:07 11:07 RBC 3.52 L (4.30-5.90) m/uL Hgb 10.8 L (13.0-17.5) gm/dL Hct 35.1 L (39.0-53.0) % MCHC 30.7 L (31.0-37.0) g/dL Neutrophils # 7.8 H (1.3-7.7) k/uL Lymphocytes # 0.8 L (1.0-4.8) k/uL BUN 4 L (9-20) mg/dL Creatinine 0.46 L (0.66-1.25) mg/dL Glucose 132 H (74-99) mg/dL POC Glucose (mg/dL) 121 H (70-110) mg/dL Magnesium 1.5 L (1.6-2.3) mg/dL Alkaline Phosphatase 169 H (38-126) U/L Total Protein 4.9 L (6.3-8.2) g/dL Albumin 2.2 L (3.5-5.0) g/dL Chest x-ray: report reviewed CT scan - chest: report reviewed CT Scan - head: report reviewed Assessment and Plan (1) Head and neck cancer Current Visit: Yes Status: Acute Code(s): C76.0 - MALIGNANT NEOPLASM OF HEAD, FACE AND NECK SNOMED Code(s): 151779287 (2) Altered mental status Current Visit: Yes Status: Acute Code(s): R41.82 - ALTERED MENTAL STATUS, UNSPECIFIED SNOMED Code(s): 756003290 Plan: AMS: Presented to emergency room for altered mental status. Family stated patient has been having progressive weakness over the last 3 to 4 months and has not been able to ambulate at home, having frequent falls and also more recently h allucinating. Of note, pt did have admission earlier this month and was treated for UTI. -Upon admit chest x-ray showed mild pulmonary vascular congestion. -CT brain and C-spine without contrast showing no acute abnormality with nonspecific white matter changes. Cervical spine negative for acute fracture. -WBC 7.4, hemoglobin 10.5, platelets 389,000. Ammonia 16. Bilirubin 0.3, AST 18, ALT 15, ALP 145. -UA suspicious for UTI. Urine culture ordered. Will also obtain viral PCR -Once pt more orientated and better able to cooperate will obtain MRI brain for further evaluation to r/o metastatic disease -US liver will be obtained to evaluate for liver disease. CT chest on 04/16/24 did note hepatic steatosis -Neurology consulted Tonsillar squamous cell carcinoma: -Oncology history as dictated in the HPI -Started weekly carbo/taxol with radiation on 05/23/2023,completed mid . On 10/12/2023,repeat PET scan showed significant response. -CT chest and neck on 04/16/24, which showed overall stable disease. -Will obtain repeat CT chest/neck to evaluate disease state
--- NOTE | 2024-08-05 17:24 | CT ---
EXAMINATION TYPE: CT neck chest w con DATE OF EXAM: 08/05/2024 5:12 PM COMPARISON: 08/03/2024. 04/21/2023 CLINICAL INDICATION: Male, 64 years old with history of hx head/neck cancer, assess malignancy;, Hx o f head/neck cancer, scan is for assessing malignancy. TECHNIQUE: Standard enhanced CT of the neck and chest. Axial sections with coronal and sagittal refo rmats were obtained. Contrast used:100ml mL of Isovue 300 with IV Contrast, (none if empty) Oral contrast used: (none if empty) CT DLP: 1035 mGycm, Automated exposure control for dose reduction was used. FINDINGS: Brain: Visualized portions are grossly unremarkable. Orbits: Unremarkable Sinuses: Grossly unremarkable. Spaces of the neck: Clear and symmetric. Musculoskeletal: No acute osseous pathology. Lymph nodes: Multiple nonenlarged lymph nodes are seen along both anterior chains of the neck. Enlar ged lymph node in the left parapharyngeal space seen on prior on 04/19/2023 is no longer visualized. There is a nonenlarged 6 mm short axis lymph nodes present. The left base of the tongue does not defi nitively demonstrate a mass on prior FDG avid uptake on 04/19/2023.. Vascular structures: Patent with atherosclerotic plaque of the internal carotid arteries at the bifur cation. Thoracic Inlet/airway: Airway is patent. The lung apices are clear. Soft tissues/Thyroid: Thyroid and remainder of the soft tissues are unremarkable. Other: none. LUNGS/ PLEURA: Mild paraseptal emphysema changes. No evidence for pneumothorax, no suspicious pulmona ry nodules. Pleural effusion or focal consolidation. Few scattered reticular opacities in the lung ba ses on the left. AIRWAY: A few opacified large airways noted in the right leading to areas of airspace HEART: Size within normal limits. Coronary artery atherosclerotic changes and stents present. MEDIASTINUM: No gross evidence of adenopathy. VASCULATURE: No aortic aneurysm. MUSCULOSKELETAL: No acute osseous abnormalities SOFT TISSUES/LYMPH NODES: Unremarkable. LOWER NECK: No significant findings. UPPER ABDOMEN: No significant findings. IMPRESSION: 1. No evidence for lymphadenopathy specifically no greater than 1.0 cm in short axis lymph node iden tified. No suspicious pulmonary nodules/masses. 2. Few scattered reticular opacities in the posterior right lung base. A few opacified airways exten ding to this region correlate for retained secretions/aspiration. 3. Carotid bifurcation atherosclerotic plaque with 57% stenosis on the right. No significant stenosi s on the left. 4. Mild to moderate emphysema. [facility], , 08/05/2024 5:21 PM
[2024-08-05] MEDS: ATORVASTATIN 80 MG TAB PO SCH (20:06)
--- NOTE | 2024-08-05 22:43 | HP ---
HISTORY AND PHYSICAL CHIEF COMPLAINT: Change in mental status. HISTORY OF PRESENT ILLNESS: This is a 64-year-old gentleman with a past medical history of multiple medical problems including CAD, COPD, and history of tonsillar carcinoma, who was admitted with the change in mental status. The patient had a recent admission with UTI. The liver ultrasound is pending at this time. Otherwise, LFTs showed normal AST and ALT. The patient has been closely monitored. Neurology evaluation in progress at this time. CT scan of the head did not show any acute abnormality. PAST MEDICAL HISTORY: History of tonsillar carcinoma, COPD, hyperlipidemia. Rest of the history and rest of the chart is also reviewed. HOME MEDICATIONS: Reviewed and include Atarax. Dose and rest of medications reviewed. ALLERGIES: Penicillin. FAMILY HISTORY: Could not be taken because of change in mental status. SOCIAL HISTORY: Could not be taken because of change in mental status. PHYSICAL EXAMINATION: VITAL SIGNS: Pulse is 101, blood pressure 135/73, respirations 20. HEENT: Conjunctivae normal. NECK: No JVD. CARDIOVASCULAR: S1, S2 normal. RESPIRATIONS: Breath sounds diminished at the bases. Few scattered rhonchi. ABDOMEN: Soft and nontender. LEGS: No edema. Nervous System: Nonfocal. LABORATORY DATA: Reviewed. ASSESSMENT: 1. Change in mental status, metabolic encephalopathy, rule out urinary tract infection. 2. Hyponatremia. 3. History of tonsillar cancer. 4. Coronary artery disease. 5. Chronic obstructive pulmonary disease. 6. History of degenerative joint disease. RECOMMENDATIONS: This is a 64-year-old gentleman, who presented with multiple complex medical issues. We will monitor the patient closely. I would recommend to initiate broad- spectrum IV antibiotics. Obtain cultures. Hematology/Oncology as well as Neurology consultation. CT scan reviewed. Overall prognosis is extremely guarded because of multiple complex medical conditions. Further recommendations to follow. See orders for further details. I would also recommend a procal evaluation also. testing is ordered today and negative. MMODL / IJN: [id number] / MTDD
[2024-08-06 08:20] LABS: Basophils # (A) 0.02 X 10*3/uL (0.00-0.10); Basophils % (A) 0.3 %; Eosinophils # (A) 0.11 X 10*3/uL (0.04-0.35); Eosinophils % (A) 1.6 %; HCT 32.1 % (39.6-50.0); HGB 10.4 g/dL (13.0-17.0); Lymphocytes # (A) 0.95 X 10*3/uL (0.90-5.00); MCH 31.5 pg (27.0-32.0); MCHC 32.4 g/dL (32.0-37.0); MCV 97.3 FL (80.0-97.0); Mean Platelet Volume 9.7 FL (9.5-12.2); Monocytes # (A) 0.63 X 10*3/uL (0.20-1.00); Monocytes % (A) 9.3 %; NRBC Per 100 WBC 0 X 10*3/uL (0.00-0.01); Neutrophils # (A) 5.06 X 10*3/uL (1.80-7.70); Neutrophils % (A) 74.5 %; Platelet Count 427 X 10*3/uL (140-440); RDW 14.8 % (11.5-14.5); WBC 6.79 X 10*3/uL (4.50-10.00)
[2024-08-06 08:31] LABS: ALT 20 U/L (10-49); AST 26 U/L (14-35); Albumin 2.5 g/dL (3.8-4.9); Alkaline Phosphatase 151 U/L (41-126); Blood Urea Nitrogen 5.2 mg/dL (9.0-27.0); Calcium 8.4 mg/dL (8.7-10.3); Carbon Dioxide 22.6 mmol/L (21.6-31.8); Chloride 105 mmol/L (96-109); Globulin 2.5 g/dL (1.6-3.3); Glucose 88 mg/dL (70-110); Potassium 3.4 mmol/L (3.5-5.5); Sodium 139 mmol/L (135-145); Total Bilirubin 0.3 mg/dL (0.3-1.2)
[2024-08-06] MEDS: TAMSULOSIN 0.4 MG CAP.ER.24H PO SCH (08:44)
[2024-08-06] MEDS: PANTOPRAZOLE 40 MG TABLET PO SCH (08:44)
[2024-08-06] MEDS: FENOFIBRATE 160 MG TAB PO SCH (08:44)
[2024-08-06] MEDS: EZETIMIBE 10 MG TAB PO SCH (08:44)
[2024-08-06] MEDS: ASPIRIN 81 MG PO SCH (08:45)
[2024-08-06] MEDS: METOPROLOL SUCCINATE (ER) 25 MG TAB.ER.24H PO SCH (08:45)
[2024-08-06] MEDS: LACTULOSE 20 GM/30 ML CUP PO SCH (08:49)
--- NOTE | 2024-08-06 09:24 | P.CNNES ---
History of Present Illness Consult date: 08/05/24 Requesting physician: Jeffrey Gibbons Reason for Consult: Altered mental status History of Present Illness: Patient is a 64-year-old right-handed male came to the hospital by ambulance 2 days ago, 08/03/2024 at 8:59 PM for a fall. Patient states that he came to the hospital because "I have a lump on the back of the neck after I took shower". But then he said that, that was last week. Patient denies any falls. Patient is not able to provide appropriate history. Actually he does not know why he came to the hospital. States it was "recommended by a friend". Patient states that he lives with his mother Amanda, and states she is 80 years old. He states he has 4 grown children. Then he said that he lives with his Kelly, and that his mother Amanda lives about 10-11 minutes away from their home. Patient admits to drinking 8-10 beers per day for last 4-5 years. He smokes tobacco 1 pack per week. He states that he does not use any assistive device at home. As per EMS flowsheet, they were dispatched for a fall. When they arrived, patient was supine in bed. He had fallen to the floor and has an abrasion to his left knee. He was picked up by [employer] fire department and placed back in his bed prior to their arrival. Patient has a Severino's catheter in place which is 250 cc of very dark urine. Patient is on antibiotic for a UTI. Patient was having visual hallucinations. Patient not on any blood thinners. He is normally alert and orient x 4 and his mentation change at approximately 5 PM per family. Blood sugar was 105 mg/dL. Saturation 96%. He was combative when touched or moved. Patient did not tolerate a c-collar. EKG shows sinus rhythm. Patient's blood pressure was 136/68, pulse 88 temperature 96.8 saturation 96%. EKG showed sinus rhythm. CT head showed no acute abnormality. Nonspecific white matter changes, most commonly seen with small vessel disease. I pers onally reviewed CT head, agree with the findings. CT of the cervical spine showed reversal of the normal cervical lordosis, most commonly seen with muscle spasm or positioning. Multilevel degenerative changes, overall slightly increased as compared to 12/05/2019. Chest x-ray showed no acute process, mild pulmonary vascular congestion. Ultrasound of the liver showed hepatomegaly. No suspicious intrahepatic mass or intrahepatic ductal dilation. No ascites. Patient's blood test shows normal WBC hemoglobin 10.5 platelets are normal. Sodium 135 potassium 3.3, renal functions are normal. Hepatic panel is normal. Influenza, RSV and coronavirus PCR negative. Urine drug screen positive for opiate and tricyclic. Troponin negative. Ammonia is normal 16. UA revealed moderate amount of leukocyte Estrace, 19 WBC, rare bacteria. Patient is currently on ceftriaxone 1 g every 24 hours. Review of Systems All pertinent positive and negative review of systems mentioned in the HPI. Otherwise unremarkable. Past Medical History Past Medical History: Coronary Artery Disease (CAD), Cancer, COPD, Hyperlipidemia Additional Past Medical History / Comment(s): 3 cervical compressed vertabrae,LEFT GROIN HERNIA WITH SEVERE GROIN AND LEG PAIN, tonsil ca History of Any Multi-Drug Resistant Organisms: None Reported Past Surgical History: Heart Catheterization, Orthopedic Surgery Additional Past Surgical History / Comment(s): orif right ankle,KNEE SURGERY ,CARDIAC STENTS Past Anesthesia/Blood Transfusion Reactions: No Reported Reaction Past Psychological History: Anxiety, Depression Smoking Status: Former smoker Past Alcohol Use History: None Reported Past Drug Use History: None Reported - Past Family History Mother Family Medical History: Cancer Additional Family Medical History / Comment(s): from colon cancer Father Additional Family Medical History / Comment(s): heart problems when was young Medications and Allergies Home Medications Medication Instructions Recorded Confirmed Type Omeprazole [PriLOSEC] 40 mg PO DAILY #14 cap 12/18/19 08/04/24 Rx Ezetimibe [Zetia] 10 mg PO DAILY 05/23/23 08/04/24 History Metoprolol Succinate [Metoprolol 12.5 mg PO DAILY 05/23/23 08/04/24 History Succinate ER] gemfibroziL [Lopid] 600 mg PO BID 05/23/23 08/04/24 History Aspirin EC [Ecotrin Low Dose] 81 mg PO DAILY 07/08/24 08/04/24 History Atorvastatin [Lipitor] 80 mg PO HS 07/08/24 08/04/24 History HYDROcodone/APAP 10-325MG [[place] 1 tab PO Q6H 07/08/24 08/04/24 History 10-325] Lactulose [Constulose] 10 gm PO DAILY 07/08/24 08/04/24 History PARoxetine HCL [Paxil] 10 mg PO DAILY 07/08/24 08/04/24 History Tamsulosin [Flomax] 0.4 mg PO DAILY 07/08/24 08/04/24 History hydrOXYzine HCL [Atarax] 25 mg PO Q8H 07/08/24 08/04/24 History Acetaminophen Tab [Tylenol] 650 mg PO Q6HR PRN tab 07/11/24 08/04/24 Rx Fluconazole [Diflucan] 200 mg PO DAILY 08/04/24 08/04/24 History Allergies Allergy/AdvReac Type Severity Reaction Status Date / Time Penicillins Allergy Unknown Verified 08/04/24 11:30 Physical Examination - Vital Signs Vital Signs: Vital Signs Temp Pulse Pulse Resp BP BP Pulse Ox 08/05/24 13:03 99.1 F 94 17 108/65 99 08/05/24 07:47 99.4 F 101 H 20 135/77 99 08/05/24 06:04 93 18 127/66 99 08/05/24 01:32 91 18 121/67 97 08/04/24 20:26 86 18 127/64 99 08/04/24 19:08 97 19 99 Intake and Output 08/05/24 08/05/24 08/05/24 06:59 14:59 22:59 Other: Voiding Method Indwelling Catheter Weight 90.718 kg Patient is an elderly male, in no acute distress. Patient is alert awake, but not very well oriented. He states the month of February and the year is 2020 or 2021. He believes it is a fall season. He knows that he is in the hospital, but does not know the name of the hospital. He states "I just moved in this place". He knows he is in [place] but does not know the name of the city he lives in all bathing he is at. He believes that he is in [facility]. Regarding president patient states some unusual name "Ever". Speech and language functions are normal. Patient can name and repeat very well. No aphasia or dysarthria. Attention, concentration is intact and fund of knowledge is limited. On cranial nerve examination, pupils are equal, round and reacting to light, visual rolon are full on confrontation, with no neglect on double simultaneous stimulation. Extraocular muscles are intact with no nystagmus. Face is symmetric, tongue protrudes to the midline. Palatal elevation and sensation normal, hearing is decreased at least moderately and shoulder shrug normal, facial sensation normal. On muscle strength testing, there is no pronator drift and the strength is normal in arms at biceps, triceps and stretch box tender, whereas shoulders did not check in detail because of it was hurting. In the lower limbs, hip flexion 4 to 4- bilaterally, ankle dorsiflexion are normal. Deep tendon reflexes are symmetric but very hypoactive and plantars are downgoing. Sensory to touch is equal with no neglect on double simultaneous stimulation. Cerebellar function showed ataxia for [id number] testing bilaterally, left more than right. Patient has moderate ataxia for [id number] testing on either side. Tone and bulk of muscles normal. Gait deferred.. On general examination, there is no carotid bruit or murmur, S1-S2 audible. Chest is clear on consultation. Abdomen is soft nontender. No organomegaly, bowel sounds present. Peripheral pulses are present. No peripheral edema. Results - Laboratory Findings CBC and BMP: 08/06/24 05:22 08/06/24 05:22 Abnormal Lab Findings: Abnormal Labs 08/03/24 08/03/24 08/03/24 21:15 21:15 21:15 RBC 3.61 L Hgb 11.5 L Hct 35.7 L MCHC Neutrophils # 7.8 H Lymphocytes # PT 12.7 H INR 1.2 H Sodium 132 L Potassium BUN 5 L Creatinine 0.52 L Glucose 64 L POC Glucose (mg/dL) Calcium Magnesium Alkaline Phosphatase 142 H Total Protein 5.3 L Albumin 2.5 L Urine Blood Ur Leukocyte Esterase Urine RBC Urine WBC Urine WBC Clumps Calcium Oxalate Crystal Urine Bacteria Urine Mucus Urine Opiates Screen U Tricyclic Antidepress 08/03/24 08/04/24 08/04/24 22:35 06:35 06:35 RBC 3.36 L Hgb 10.5 L Hct 33.6 L MCHC Neutrophils # Lymphocytes # 0.9 L PT INR Sodium 135 L Potassium 3.3 L BUN 3 L Creatinine 0.48 L Glucose POC Glucose (mg/dL) Calcium 8.2 L Magnesium 1.4 L Alkaline Phosphatase 145 H Total Protein 4.8 L Albumin 2.2 L Urine Blood Small H Ur Leukocyte Esterase Moderate H Urine RBC 8 H Urine WBC 19 H Urine WBC Clumps Rare H Calcium Oxalate Crystal Rare H Urine Bacteria Rare H Urine Mucus Rare H Urine Opiates Screen Detected H U Tricyclic Antidepress Detected H 08/05/24 08/05/24 08/05/24 07:57 11:07 11:07 RBC 3.52 L Hgb 10.8 L Hct 35.1 L MCHC 30.7 L Neutrophils # 7.8 H Lymphocytes # 0.8 L PT INR Sodium Potassium BUN 4 L Creatinine 0.46 L Glucose 132 H POC Glucose (mg/dL) 121 H Calcium Magnesium 1.5 L Alkaline Phosphatase 169 H Total Protein 4.9 L Albumin 2.2 L Urine Blood Ur Leukocyte Esterase Urine RBC Urine WBC Urine WBC Clumps Calcium Oxalate Crystal Urine Bacteria Urine Mucus Urine Opiates Screen U Tricyclic Antidepress Assessment and Plan Assessment: * Altered mental status, perhaps underlying cognitive impairment. Rule out del irium from UTI. * History of head/neck cancer * Hard of hearing * Hyperlipidemia * Coronary artery disease * Possible UTI. * Alcoholism Plan: * Patient appears to be quite confused at this time. We will try to obtain collateral history from patient's . * Patient is being treated with ceftriaxone for possible UTI. * CT head and neck without contrast revealed no acute process. * Oncology also on board for his previous history of head and neck cancer. Patient undergoing CT of the chest and neck with contrast. * B12 763, B1 43(38-122), RBC folate 590 normal. Ammonia 16. * Check TSH, * Watch for alcohol withdrawal * Start thiamine, folic acid. * I tried to contact patient's to obtain collateral history, but she was not available, left my contact number in her voicemail. * Neurology will follow. Thank you for the consult. Time with Patient: Greater than 30
--- NOTE | 2024-08-06 10:30 | US ---
EXAMINATION TYPE: US carotid duplex BILAT DATE OF EXAM: 08/06/2024 COMPARISON: CT 2024 CLINICAL INDICATION: Male, 64 years old with history of Carotid stenosis; Stenosis per order Additional History: .... TECHNIQUE: Grayscale, color Doppler and spectral Doppler evaluation of the bilateral carotid systems and vertebral arteries. Indirect Doppler criteria was utilized. FINDINGS: EXAM MEASUREMENTS: RIGHT: Peak Systolic Velocity (PSV) cm/sec ----- Right CCA: 118 ----- Right ICA: 84.4 ----- Right ECA: 162 ICA/CCA ratio: 0.72 RIGHT: End Diastole cm/sec ----- Right CCA: 14.1 ----- Right ICA: 10.0 ----- Right ECA: 14.7 LEFT: Peak Systolic Velocity (PSV) cm/sec ----- Left CCA: 125 ----- Left ICA: 95.1 ----- Left ECA: 114 ICA/CCA ratio: 0.76 LEFT: End Diastole cm/sec ----- Left CCA: 18.1 ----- Left ICA: 15.4 ----- Left ECA: 12.1 VERTEBRALS (direction of flow): Right Vertebral: Antegrade Left Vertebral: Unable to visualize Rhythm: Normal SANDBLASTER STONE NOTES: Plaque seen within bilateral bulbs and left prox ICA. Elevated velocity noted rig ht ECA. Left vertebral artery not seen. Color Doppler imaging shows patency with blood flow throughout the carotid artery. IMPRESSION: Right: Less than 50% stenosis of the carotid bifurcation. Left: Less than 50% stenosis of the carotid bifurcation. Criteria for Assigning % of Stenosis / Diameter reduction (Estimation based on the indirect measurements of the internal carotid artery velocities (ICA PSV). 1. Normal (no stenosis)=ICA PSV < 180 cm/s: ratio < 2.0: ICA EDV<40 cm/s. 2. Less than 50% stenosis=ICA PSV < 180 cm/s: ratio < 2.0: ICA EDV<40 cm/s. 3. 50 to 69% stenosis=ICA PSV of 180 to 230 cm/s: ration 2.0 ? 4.0: ICA EDV 40-100 cm/s. PSV 125-180 cm/sec and ICA/CCA PSV Ratio ? 2.0 is also consistent with 50-69% stenosis 4. Greater than 70% stenosis to near occlusion= ICA PSV > 230 cm/s: ratio > 4.0: ICA EDV > 100 cm/s. 5. Near occlusion= ICA PSV velocities may be low or undetectable: variable ratio and ICA EDV. 6. Total occlusion=unable to detect flow. [facility], , 08/06/2024 10:28 AM
[2024-08-06] MEDS: FLUCONAZOLE 100 MG TAB PO SCH (11:17)
[2024-08-06] MEDS ORDERED: Magnesium Replacement Protocol 1 EACH MISC MISCELLANE PRN (14:04)
[2024-08-06] MEDS ORDERED: Potassium Replacement Protocol 1 EACH MISC MISCELLANE PRN (14:04)
[2024-08-06] MEDS: POTASSIUM CHLORIDE ER 20 MEQ TAB.ER PO SCH ×2 (15:35→22:57)
[2024-08-06 16:12] VITALS: BMI 25.7
--- NOTE | 2024-08-06 17:40 | P.PN ---
Subjective Progress Note Date: 08/06/24 Mentation has improved today. Cultures pending, IV has been started. Pt remains afebrile Objective - Vital Signs Vital signs: Vital Signs Temp 98.4 F 08/06/24 08:00 Pulse 97 08/06/24 08:00 Resp 17 08/06/24 08:00 BP 134/80 08/06/24 08:00 Pulse Ox 99 08/06/24 09:11 FiO2 Intake & Output 08/05/24 08/06/24 08/06/24 18:59 06:59 18:59 Intake Total 540 240 360 Output Total 750 300 Balance -210 -60 360 Weight 90.718 kg Intake: Oral 540 240 360 Output: Urine 750 300 Other: Voiding Method Indwelling Catheter Indwelling Catheter Indwelling Catheter - Constitutional General appearance: Present: average body habitus, no acute distress - EENT Eyes: Present: anicteric sclerae, EOMI ENT: Present: hearing grossly normal - Respiratory Details: breathing is even and unlabored - Cardiovascular Details: skin warm and dry - Gastrointestinal General gastrointestinal: Present: soft. Absent: tenderness - Musculoskeletal Musculoskeletal: Present: generalized weakness - Psychiatric Psychiatric Comment(s): A&Ox 2 - Labs CBC & Chem 7: 08/06/24 05:22 08/06/24 05:22 Labs: Abnormal Lab Results - Last 24 Hours (Table) 08/06/24 08/06/24 Range/Units 05:22 05:22 RBC 3.30 L (4.40-5.60) X 10*6/uL Hgb 10.4 L (13.0-17.0) g/dL Hct 32.1 L (39.6-50.0) % MCV 97.3 H (80.0-97.0) FL RDW 14.8 H (11.5-14.5) % Potassium 3.4 L (3.5-5.5) mmol/L BUN 5.2 L (9.0-27.0) mg/dL Creatinine 0.4 L (0.6-1.5) mg/dL Calcium 8.4 L (8.7-10.3) mg/dL Alkaline Phosphatase 151 H (41-126) U/L Total Protein 5.0 L (6.2-8.2) g/dL Albumin 2.5 L (3.8-4.9) g/dL Albumin/Globulin Ratio 1.00 L (1.60-3.17) Ratio - Imaging and Cardiology CT scan - chest: report reviewed US - abdomen: report reviewed Assessment and Plan (1) Head and neck cancer Current Visit: Yes Status: Acute Code(s): C76.0 - MALIGNANT NEOPLASM OF HEAD, FACE AND NECK SNOMED Code(s): 450047782 (2) Altered mental status Current Visit: Yes Status: Acute Code(s): R41.82 - ALTERED MENTAL STATUS, UNSPECIFIED SNOMED Code(s): 366448837 Plan: AMS: Presented to emergency room for altered mental status. Family stated patient has been having progressive weakness over the last 3 to 4 months and has not been able to ambulate at home, having frequent falls and also more recently hallucinating. Of note, pt did have admission earlier this month and was treated for UTI. -Upon admit chest x-ray showed mild pulmonary vascular congestion. -CT brain and C-spine without contrast showing no acute abnormality with nonspecific white matter changes. Cervical spine negative for acute fracture. -WBC 7.4, hemoglobin 10.5, platelets 389,000. Ammonia 16. Bilirubin 0.3, AST 18, ALT 15, ALP 145. -UA suspicious for UTI. Urine and blood cultures pending. Viral PCR negative. Rocephin started empirically -US liver showing hepatomegaly. CT chest on 04/16/24 did note hepatic steatosis -Brain MRI ordered -Neurology consulted. EEG, and MRI cervical/lumbar spine ordered Tonsillar squamous cell carcinoma: -Oncology history as dictated in the HPI -Started weekly carbo/taxol with radiation on 05/23/2023,completed mid [facility]. On 10/12/2023,repeat PET scan showed significant response. -CT chest and neck on 04/16/24, which showed overall stable disease. -Repeat CT chest/neck revealed stable disease, with no evidence of new mass/lesions or abnormal LAD
[2024-08-06] MEDS: HEPARIN SODIUM,PORCINE 5,000 UNIT/ML 1 ML VIAL SQ SCH (19:40)
--- NOTE | 2024-08-06 23:49 | PN ---
PROGRESS NOTE DATE OF SERVICE: 08/06/2024 SUBJECTIVE: This is a 64-year-old gentleman, admitted with change in mental status and possible UTI, is being empirically treated with antibiotics. Sensorium is slightly better today. The patient has multiple complex medical issues also. PAST MEDICAL HISTORY: Reviewed. REVIEW OF SYSTEMS: Could not be taken. CURRENT MEDICATIONS: Reviewed. PHYSICAL EXAMINATION: VITAL SIGNS: Pulse is 93, blood pressure 118/47, respirations 16. CHEST: A few scattered rhonchi. ABDOMEN: Soft. NERVOUS SYSTEM: Diffusely weak. LABORATORY DATA: Potassium 3.4, rest of the labs are noted. ASSESSMENT: 1. Change in mental status, acute metabolic encephalopathy, possible acute urinary tract infection, present on admission. 2. Hyponatremia. 3. History of tonsillar cancer. 4. Coronary artery disease. 5. Chronic obstructive pulmonary disease. 6. History of degenerative joint disease. 7. Full code. RECOMMENDATIONS AND DISCUSSION: I recommend to continue current management and continue symptomatic treatment. Repeat labs at this time. Continue with empiric antibiotics. Neurology is ordering MRI. I would recommend potassium, mag replacements also. Otherwise, prognosis guarded. Further recommendations to follow. MMODL / IJN: [id number] /
--- NOTE | 2024-08-07 00:37 | EEG ---
ELECTROENCEPHALOGRAM REPORT PREAMBLE: This is a 64-year-old male with frequent falls and altered mental status. This study is performed to evaluate for any encephalopathy or rule out any epileptiform activity. EEG FINDINGS: This is a 21-channel digital EEG recorded with video component, utilizing 10/20 international system with referential and bipolar montages. The recording starts and continues with presence of somewhat disorganized background, consisting of mixed frequencies of 5 to 7 hertz theta, intermixed with some alpha and some sporadic delta activity in bihemispheric region. Background is posterior dominant and seems to be very minimally reactive to eye opening or closing. Photic driving response was not seen. Different stages of sleep were not seen. No focal or generalized epileptiform activity was seen. Frequent myogenic artifact was seen during the study. IMPRESSION: This is an abnormal EEG due to presence of background disorganization and slowing, suggestive of [id number] encephalopathy. No focal, lateralized, or epileptiform activity was seen. MMODL / IJN: [id number] /
[2024-08-07] MEDS ORDERED: Potassium Replacement Protocol 1 EACH MISC MISCELLANE PRN (02:27)
[2024-08-07 02:33] LABS: African American GFR (CKD) >90 (>60 ml/min/1.73 sqM); Anion Gap 8 mmol/L; Blood Urea Nitrogen 3 mg/dL (9-20); Calcium 8.6 mg/dL (8.4-10.2); Carbon Dioxide 21 mmol/L (22-30); Chloride 105 mmol/L (98-107); Glucose 81 mg/dL (74-99); Magnesium 1.4 mg/dL (1.6-2.3); Non-African American GFR(CKD) >90 (>60 ml/min/1.73 sqM); Potassium 3.2 mmol/L (3.5-5.1); Sodium 134 mmol/L (137-145)
[2024-08-07] MEDS ORDERED: Magnesium Replacement Protocol 1 EACH MISC MISCELLANE PRN (02:43)
[2024-08-07 03:15] LABS: Basophils % (A) 0 %; Eosinophils # (A) 0.1 k/uL (0-0.7); Eosinophils % (A) 1 %; HCT 34.9 % (39.0-53.0); HGB 11.2 gm/dL (13.0-17.5); Hypochromasia Slight; Lymphocytes # (A) 0.9 k/uL (1.0-4.8); Lymphocytes % (A) 12 %; MCH 31.4 pg (25.0-35.0); MCHC 32.2 g/dL (31.0-37.0); MCV 97.4 fL (80.0-100.0); Mean Platelet Volume 7.3; Monocytes # (A) 0.6 k/uL (0-1.0); Monocytes % (A) 8 %; Neutrophils # (A) 5.6 k/uL (1.3-7.7); Neutrophils % (A) 76 %; Platelet Count 407 k/uL (150-450); RBC 3.58 m/uL (4.30-5.90); RDW 14.6 % (11.5-15.5); WBC 7.4 k/uL (3.8-10.6)
[2024-08-07] MEDS: POTASSIUM CHLORIDE ER 20 MEQ TAB.ER PO SCH (03:16)
[2024-08-07] MEDS: MAGNESIUM SULFATE-D5W PMX 1 GM in DEXTROSE/WATER 1 100ML.BAG IVPB SCH (03:16)
--- NOTE | 2024-08-07 09:20 | P.PN ---
Subjective Progress Note Date: 08/06/24 Patient was seen for a follow-up. Patient continues to be very confused. Offers no complaints. Patient states "I am working". He states that he is in "[facility]". He does not know what building he is in or what kind of building it is. He knows that he is in [facility]. He is hard of hearing. Patient's his current president is Sanjeev. Patient denies headache. Objective - Vital Signs Vital signs: Vital Signs Temp 98.4 F 08/06/24 14:28 Pulse 67 08/06/24 14:28 Resp 16 08/06/24 14:28 BP 121/67 08/06/24 14:28 Pulse Ox 98 08/06/24 14:28 FiO2 Intake & Output 08/06/24 08/06/24 08/07/24 06:59 18:59 06:59 Intake Total 240 1260 Output Total 300 450 Balance -60 810 Weight 90.718 kg Intake: Oral 240 1260 Output: Urine 300 450 Other: Voiding Method Indwelling Catheter Indwelling Catheter # Bowel Movements 4 - Exam Examination is unchanged. Mental status examination as mentioned above. - Labs CBC & Chem 7: 08/07/24 02:00 08/07/24 02:00 Labs: Abnormal Lab Results - Last 24 Hours (Table) 08/06/24 08/06/24 Range/Units 05:22 05:22 RBC 3.30 L (4.40-5.60) X 10*6/uL Hgb 10.4 L (13.0-17.0) g/dL Hct 32.1 L (39.6-50.0) % MCV 97.3 H (80.0-97.0) FL RDW 14.8 H (11.5-14.5) % Potassium 3.4 L (3.5-5.5) mmol/L BUN 5.2 L (9.0-27.0) mg/dL Creatinine 0.4 L (0.6-1.5) mg/dL Calcium 8.4 L (8.7-10.3) mg/dL Alkaline Phosphatase 151 H (41-126) U/L Total Protein 5.0 L (6.2-8.2) g/dL Albumin 2.5 L (3.8-4.9) g/dL Albumin/Globulin Ratio 1.00 L (1.60-3.17) Ratio Assessment and Plan Assessment: * Altered mental status, with rapidly progressive cognitive impairment, since April 2024. Rule out superimposed delirium from UTI. * Ataxia in the upper and lower limbs, unclear cause. Patient has not been able to walk since April 2024. * History of head/neck cancer * Hard of hearing * Hyperlipidemia * Coronary artery disease * Possible UTI. * Previous history of alcoholism Plan: * Patient continues to be very confused. I spoke to patient's on the phone, who states that patient lives with her. Patient's mother Amanda has passed a very long time ago. Patient does have a granddaughter who is also name Amanda, who lives a few blocks away and patient may be mixing up granddaughter Amanda with his mother. She mentions that prior to April patient was perfectly fine mentally and physically, was able to walk without difficulty. In April he was hospitalized to [facility] for altered mental status. He was diagnosed with metabolic encephalopathy. He has not been fine since then. His cognitive functions have declined significantly, and also has not been able to walk. She mentions that patient did have history of heavy alcoholism in the past, but he has not drank alcohol for years. * EEG was performed, which was abnormal due to presence of background disorganization and slowing, suggestive of mild to moderate encephalopathy. No focal, lateralized or epileptiform activity was seen. * Patient undergoing MRI of the brain with and without contrast initiated by oncology. We will also check MRI of the cervical and lumbar spine because of ataxia and gait difficulty. * Patient is being treated with ceftriaxone for possible UTI. * CT head and neck without contrast revealed no acute process. * Oncology also on board for his previous history of head and neck cancer. * CT of the chest and neck with contrast revealed no evidence for lym phadenopathy. Carotid bifurcation atherosclerotic plaque with 57% stenosis of the right. No significant stenosis on the left. Mild to moderate emphysema. * Carotid Doppler was subsequently performed, which revealed less than 50% stenosis of bilateral carotid bifurcation. Right vertebral artery antegrade flow, left vertebral artery and able to visualize. * B12 763, B1 43(38-122), RBC folate 590 normal. Ammonia 16. TSH 0.509 normal * Continue thiamine, folic acid.
--- NOTE | 2024-08-07 13:14 | MR ---
EXAMINATION TYPE: MR brain wo/w con DATE OF EXAM: 08/07/2024 1:07 PM COMPARISON: 08/05/2024. CLINICAL INDICATION: Male, 64 years old with history of confusion, hx head and neck cancer; PHH, Conf usion, hx head and neck cancer. TECHNIQUE: Multi planar, multi sequence imaging was performed through the brain including: T1, T2, In version recovery, susceptibility weighted imaging and gradient echo imaging and Diffusion weighted im aging. The patient was then given intravenous contrast and multi planar, T1 fat-saturation images wer e obtained. IV Contrast: 9 mL Gadobutrol FINDINGS: Mild cerebral atrophy with proportional dilation of ventricular system. Diffusion-weighted imaging s hows no evidence of restricted diffusion to suggest acute/subacute infarct. Intracranial arterial keith w voids are maintained. Midline structures show no abnormality. Scattered foci of high T2 signal inte nsity are seen within the periventricular white matter. The susceptibility weighted images do not rev eal any evidence for micro-hemorrhage. After administration of gadolinium, no abnormal enhancement is seen. The bone marrow signal is within normal limits. Paranasal sinuses and mastoid air cells: Trace left mastoid air cell effusion with high T2 signal pre sent. Visualized orbits: Orbital contents are intact. IMPRESSION: 1. No evidence of intracranial mass, acute/subacute infarct, or abnormal enhancement. 2. Nonspecific white matter changes, likely related to small vessel ischemic disease. [facility], , 08/07/2024 1:11 PM
--- NOTE | 2024-08-07 14:37 | P.PN ---
Subjective Progress Note Date: 08/07/24 Pt appears more confused today then yesterday. A&O x 1-2. Urine culture positive, presumptive staph aureus. Continues on IV abx. Pt remains afebrile Objective - Vital Signs Vital signs: Vital Signs Temp 97.9 F 08/07/24 08:13 Pulse 93 08/07/24 08:13 Resp 16 08/07/24 08:13 BP 141/77 08/07/24 08:13 Pulse Ox 98 08/07/24 08:13 FiO2 Intake & Output 08/06/24 08/07/24 08/07/24 18:59 06:59 18:59 Intake Total 1260 480 Output Total 450 550 Balance 810 -70 Weight 90.718 kg Intake: Oral 1260 480 Output: Urine 450 550 Other: Voiding Method Indwelling Catheter Indwelling Catheter # Bowel Movements 4 1 - Constitutional General appearance: Present: average body habitus, no acute distress - EENT Eyes: Present: anicteric sclerae, EOMI ENT: Present: hearing grossly normal - Respiratory Details: breathing is even and unlabored - Cardiovascular Details: skin warm and dry - Gastrointestinal General gastrointestinal: Present: soft. Absent: tenderness - Integumentary Integumentary: Absent: cyanotic - Musculoskeletal Musculoskeletal: Present: generalized weakness - Labs CBC & Chem 7: 08/07/24 02:00 08/07/24 08:58 Labs: Abnormal Lab Results - Last 24 Hours (Table) 08/06/24 08/07/24 08/07/24 Range/Units 20:56 02:00 02:00 RBC 3.58 L (4.30-5.90) m/uL Hgb 11.2 L (13.0-17.5) gm/dL Hct 34.9 L (39.0-53.0) % Lymphocytes # 0.9 L (1.0-4.8) k/uL Sodium 134 L (137-145) mmol/L Potassium 3.1 L 3.2 L (3.5-5.1) mmol/L Carbon Dioxide 21 L (22-30) mmol/L BUN 3 L (9-20) mg/dL Creatinine 0.42 L (0.66-1.25) mg/dL Magnesium 1.4 L (1.6-2.3) mg/dL 08/07/24 Range/Units 02:00 RBC (4.30-5.90) m/uL Hgb (13.0-17.5) gm/dL Hct (39.0-53.0) % Lymphocytes # (1.0-4.8) k/uL Sodium (137-145) mmol/L Potassium 3.2 L (3.5-5.1) mmol/L Carbon Dioxide (22-30) mmol/L BUN (9-20) mg/dL Creatinine (0.66-1.25) mg/dL Magnesium (1.6-2.3) mg/dL Microbiology - Last 24 Hours (Table) 08/05/24 16:30 Urine Culture - Preliminary Urine,Catheterized Presumptive Staph aureus 08/05/24 15:03 Blood Culture - Preliminary Blood Assessment and Plan (1) Head and neck cancer Current Visit: Yes Status: Acute Code(s): C76.0 - MALIGNANT NEOPLASM OF HEAD, FACE AND NECK SNOMED Code(s): 914913019 (2) Altered mental status Current Visit: Yes Status: Acute Code(s): R41.82 - ALTERED MENTAL STATUS, UNSPECIFIED SNOMED Code(s): 673641776 Plan: AMS, UTI: Presented to emergency room for altered mental status. Family stated patient has been having progressive weakness over the last 3 to 4 months and has not been able to ambulate at home, having frequent falls and also more recently hallucinating. Of note, pt did have admission earlier this month and was treated for UTI. -Upon admit chest x-ray showed mild pulmonary vascular congestion. -CT brain and C-spine without contrast showing no acute abnormality with nonspecific white matter changes. Cervical spine negative for acute fracture. -WBC 7.4, hemoglobin 10.5, platelets 389,000. Ammonia 16. Bilirubin 0.3, AST 18, ALT 15, ALP 145. -Urine culture positive for presumptive staph aureus. Continues Rocephin. Blood culture negative thus far. Viral PCR negative. -US liver showing hepatomegaly. CT chest on 04/16/24 did note hepatic steatosis -Brain MRI negative for intracranial mass, acute/subacute infarct, and for abnormal enhancement -Neurology consulted. EEG and MRI cervical/lumbar spine ordered Tonsillar squamous cell carcinoma: -Oncology history as dictated in the HPI -Started weekly carbo/taxol with radiation on 05/23/2023,completed mid July/2023. On 10/12/2023,repeat PET scan showed significant response. -CT chest and neck on 04/16/24, which showed overall stable disease. -Repeat CT chest/neck revealed stable disease, with no evidence of new mass/lesions or abnormal LAD
--- NOTE | 2024-08-07 15:00 | FL ---
EXAMINATION TYPE: FL barium swallow w video DATE OF EXAM: 08/07/2024 MODIFIED SWALLOW / DEGLUTITION STUDY CLINICAL HISTORY: Dysphagia. TECHNIQUE: Deglutition study is performed utilizing thin liquid barium, honey and nectar thick liqui d barium, barium thick applesauce, and barium coated cracker. Total dose area product (DAP) in uGy*m ?, mGy*cm? (or similar): COMPARISON: None. FINDINGS: The oral and pharyngeal phases show satisfactory initiation and propagation with all modali ties tested. Normal mastication is seen with solid modalities tested. There is no evidence of aspir ation with any modality tested. Mild transient penetration noted with the thin liquid barium. No sig nificant pharyngeal residue was appreciated. IMPRESSION: Mild transient penetration noted with the thin liquid barium. [facility], , 08/07/2024 2:57 PM
[2024-08-07] MEDS ORDERED: LORazepam 1 MG/0.5 ML VIAL IV PRN (15:36)
[2024-08-07] MEDS: NICOTINE 14MG/24HR PATCH TRANSDERM SCH (15:50)
[2024-08-07] MEDS: ACETAMINOPHEN TAB 325 MG TAB PO PRN (16:01)
[2024-08-07] MEDS ORDERED: HALOPERIDOL LACTATE 5 MG/ML 1 ML VIAL IM PRN (16:23)
[2024-08-07] MEDS: QUEtiapine 25 MG TAB PO STA (16:38)
[2024-08-07] MEDS ORDERED: VANCOMYCIN IV PER PHARMACY 1 EACH MISC MISCELLANE PRN (23:09)
--- NOTE | 2024-08-07 23:12 | P.CONS ---
History of Present Illness - Reason for Consult Consult date: 08/07/24 AMS, UTI, Staph aureus Requesting physician: Tamela Brown - Chief Complaint Mental status changes x few days - History of Present Illness Patient is a 64-year-old male with a past medical history significant for COPD hyperlipidemia coronary artery disease presenting to the hospital few days ago for evaluation of altered mental status in this patient symptom apparently was getting worse for few days before the patient has been brought into the hospital, patient on arrival to the ER did have a few low-grade fever of 99.4 degrees for night patient was tachycardic on admission subsequent resolved not hypotensive or hypoxic he did have a white count of 10.2 creatinine 0.52 liver enzymes are normal urine was positive with moderate ascites trace and 19 WBC urine drug screen positive for tricyclic and opiates influenza RSV COVID testing has been negative patient has been treated with Rocephin with urine now showing Staph aureus prompting this infectious disease consultation patient is currently pleasantly confused not able to provide any history he did have a Severino catheter and the patient is currently not able to tell me if he did have any difficulty urination before coming to the hospital Review of Systems Positive points has been mentioned in HPI complete review could not be obtained because of his underlying mental status Past Medical History Past Medical History: Coronary Artery Disease (CAD), Cancer, COPD, Hyperlipidemia Additional Past Medical History / Comment(s): 3 cervical compressed vertabrae,LEFT GROIN HERNIA WITH SEVERE GROIN AND LEG PAIN, tonsil ca History of Any Multi-Drug Resistant Organisms: None Reported Past Surgical History: Heart Catheterization, Orthopedic Surgery Additional Past Surgical History / Comment(s): orif right ankle,KNEE SURGERY ,CARDIAC STENTS Past Anesthesia/Blood Transfusion Reactions: No Reported Reaction Past Psychological History: Anxiety, Depression Smoking Status: Former smoker Past Alcohol Use History: None Reported Past Drug Use History: None Reported - Past Family History Mother Family Medical History: Cancer Additional Family Medical History / Comment(s): from colon cancer Father Additional Family Medical History / Comment(s): heart problems when was young Medications and Allergies Home Medications Medication Instructions Recorded Confirmed Type Omeprazole [PriLOSEC] 40 mg PO DAILY #14 cap 12/18/19 08/04/24 Rx Ezetimibe [Zetia] 10 mg PO DAILY 05/23/23 08/04/24 History Metoprolol Succinate [Metoprolol 12.5 mg PO DAILY 05/23/23 08/04/24 History Succinate ER] gemfibroziL [Lopid] 600 mg PO BID 05/23/23 08/04/24 History Aspirin EC [Ecotrin Low Dose] 81 mg PO DAILY 07/08/24 08/04/24 History Atorvastatin [Lipitor] 80 mg PO HS 07/08/24 08/04/24 History HYDROcodone/APAP 10-325MG [[place] 1 tab PO Q6H 07/08/24 08/04/24 History 10-325] Lactulose [Constulose] 10 gm PO DAILY 07/08/24 08/04/24 History PARoxetine HCL [Paxil] 10 mg PO DAILY 07/08/24 08/04/24 History Tamsulosin [Flomax] 0.4 mg PO DAILY 07/08/24 08/04/24 History hydrOXYzine HCL [Atarax] 25 mg PO Q8H 07/08/24 08/04/24 History Acetaminophen Tab [Tylenol] 650 mg PO Q6HR PRN tab 07/11/24 08/04/24 Rx Fluconazole [Diflucan] 200 mg PO DAILY 08/04/24 08/04/24 History Allergies Allergy/AdvReac Type Severity Reaction Status Date / Time Penicillins Allergy Unknown Verified 08/04/24 11:30 Physical Exam Vitals: Vital Signs Temp Pulse Resp BP Pulse Ox 08/07/24 14:33 97.8 F 94 17 110/72 98 08/07/24 12:17 98.3 F 94 20 129/71 99 08/07/24 08:13 97.9 F 93 16 141/77 98 08/07/24 07:16 97.9 F 94 19 151/68 100 08/07/24 01:47 98.1 F 95 20 119/53 100 08/06/24 19:14 98.3 F 91 18 121/61 98 Intake and Output 08/07/24 08/07/24 08/07/24 06:59 14:59 22:59 Intake Total 240 240 Output Total 550 200 Balance -310 40 Intake: Oral 240 240 Output: Urine 550 200 Other: Voiding Method Indwelling Catheter # Bowel Movements 3 GENERAL DESCRIPTION: Middle-age male lying in bed, no distress. No tachypnea or accessory muscle of respiration use. HEENT: Shows Pallor , no scleral icterus. Oral mucous membrane is dry. NECK: Trachea central, no thyromegaly. LUNGS: Unlabored breathing. Clear to auscultation anteriorly. No wheeze or c rackle. HEART: S1, S2, regular rate and rhythm. No loud murmur ABDOMEN: Soft, no tenderness , guarding or rigidity, no organomegaly EXTREMITIES: No edema of feet. SKIN: No rash, no masses palpable. NEUROLOGICAL: The patient is awake, but pleasant confused orientation cannot be determined Results CBC & Chem 7: 08/07/24 02:00 08/07/24 08:58 Labs: Abnormal Lab Results - Last 24 Hours (Table) 08/06/24 08/07/24 08/07/24 Range/Units 20:56 02:00 02:00 RBC 3.58 L (4.30-5.90) m/uL Hgb 11.2 L (13.0-17.5) gm/dL Hct 34.9 L (39.0-53.0) % Lymphocytes # 0.9 L (1.0-4.8) k/uL Sodium 134 L (137-145) mmol/L Potassium 3.1 L 3.2 L (3.5-5.1) mmol/L Carbon Dioxide 21 L (22-30) mmol/L BUN 3 L (9-20) mg/dL Creatinine 0.42 L (0.66-1.25) mg/dL Magnesium 1.4 L (1.6-2.3) mg/dL 08/07/24 Range/Units 02:00 RBC (4.30-5.90) m/uL Hgb (13.0-17.5) gm/dL Hct (39.0-53.0) % Lymphocytes # (1.0-4.8) k/uL Sodium (137-145) mmol/L Potassium 3.2 L (3.5-5.1) mmol/L Carbon Dioxide (22-30) mmol/L BUN (9-20) mg/dL Creatinine (0.66-1.25) mg/dL Magnesium (1.6-2.3) mg/dL Microbiology - Last 24 Hours (Table) 08/05/24 16:30 Urine Culture - Preliminary Urine,Catheterized Presumptive Staph aureus 03/31/25 15:03 Blood Culture - Preliminary Blood Assessment and Plan (1) Penicillin allergy Current Visit: Yes Status: Acute Code(s): Z88.0 - ALLERGY STATUS TO PENICILLIN SNOMED Code(s): 10845191 (2) MRSA (methicillin resistant staph aureus) culture positive Current Visit: Yes Status: Acute Code(s): Z22.322 - CARRIER OR SUSPECTED CARRIER OF METHICILLIN RESIS STAPH SNOMED Code(s): 813674328 (3) Urinary tract infection Current Visit: No Status: Acute Code(s): N39.0 - URINARY TRACT INFECTION, SITE NOT SPECIFIED SNOMED Code(s): 38169265 Plan: 1patient presented hospital with mental status changes which is likely multifactorial in this patient who did have a positive UA possible component of UTI not entirely excluded however patient do not have any elevated white count with a mental status changes that would qualify for symptomatic UTI with urine not showing MRSA with a question of possible colonization of the catheter versus true pathogen 2-we will repeat urine culture 3-discontinue Rocephin start vancomycin pending finalization of the repeat culture We will follow on clinical condition and cultures to further adjust medication if needed Thank you for this consultation we will follow the patient along with you Dictation was produced using [employer] dictation software. please excuse any grammatical, word or spelling errors. Time with Patient: Greater than 30
[2024-08-07] MEDS: QUEtiapine 25 MG TAB PO SCH (23:13)
[2024-08-07] MEDS: VANCOMYCIN 1,500 MG in SODIUM CHLORIDE 0.9% 500 ML 500 ML IVPB SCH (23:25)
[2024-08-07 23:41] LABS: Appearance,Urine Clear (Clear); Bilirubin,Urine Negative (Negative); Blood,Urine Negative (Negative); Color,Urine Colorless; Glucose,Urine (UA) Negative (Negative); Ketones,Urine Negative (Negative); Leukocyte Esterase,Urine Negative (Negative); Nitrite,Urine Negative (Negative); PH, Urine 7.5 (5.0-8.0); Protein,Urine Negative (Negative); Urobilinogen,Urine <2.0 mg/dL (<2.0)
--- NOTE | 2024-08-08 06:30 | P.PN ---
Subjective Progress Note Date: 08/07/24 This is a 64-year-old male who was recently admitted with altered mental status with concerns of possible urinary tract infection has been started on antibiotics. Mental status mildly improved although waxes and wanes and patient is remaining somewhat confused and occasionally yelling out at staff and a ttempting to get out of bed. Patient with presumptive staph in the urine will consult infectious disease and appreciate input and recommendations. Patient is undergoing MRI of the brain with no significant changes noted and is also scheduled to undergo MRI of the cervix which is pending. Patient is afebrile with no reports of chest pain or shortness of breath. Patient did successfully pass bedside swallow recommending modified barium which is pending at this time as well. Review of systems: Constitutional: No reports of fatigue, fever, or chills Cardiovascular: No reports of chest pain or palpitations Respiratory: No reports of shortness of breath or cough GI: No reports of nausea, no reports of vomiting, no diarrhea : No reports of dysuria or retention Neurovascular: reports of generalized weakness All medications have been reviewed PHYSICAL EXAMINATION: GENERAL: The patient is alert and oriented x1-2, confused, anxious and restless at times well developed, appears much older than stated age HEENT: Pupils are round and equally reacting to light. EOMI. no scleral icterus. No conjunctival pallor. Normocephalic, atraumatic. No pharyngeal erythema. No thyromegaly. CARDIOVASCULAR: S1 and S2 muffled PULMONARY: diminished breath sounds bilaterally with no wheezing or rhonchi noted. ABDOMEN: soft. Nontender on exam. obese. non-distended, normoactive bowel sounds. No palpable organomegaly. MUSCULOSKELETAL: No joint swelling or deformity. EXTREMITIES: No cyanosis, clubbing, or pedal edema. NEUROLOGICAL: Gross neurological examination did not reveal any focal deficits. Diffuse weakness SKIN: No rashes. Assessment: Change in mental status, acute metabolic encephalopathy possibly secondary to acute urinary tract infection, present on admission Acute urinary tract infection, present on admission with cultures showing presumptive staph preliminary Hyponatremia History of tonsillar cancer History of coronary artery disease Chronic obstructive pulmonary disease, not in exacerbation History of degenerative joint disease GI prophylaxis DVT prophylaxis Full code Plan: Recommend to continue with current medications and management with neurology following. Patient scheduled to undergo MRI of the brain which is pending at this time also cervical neck Patient continues to be confused and not sleeping will add Seroquel and also possibly throughout the day as needed. Continue on antibiotics and consult to infectious disease and appreciate input and recommendations as preliminary urine culture showing presumptive staph Follow-up on labs in the a.m. and replace electrolytes per protocol PT/OT therapy to evaluate as patient reports he will be going home on discharge. Unsure of discharge planning at this time Due to multiple complex medical issues, prognosis is guarded. The impression and plan of care has been dictated by Tamela Brown, nurse practitioner as directed. Dr. Shai MD I have performed a history and examination and MDM of this patient, discussed the same with the dictator, and agree with the dictator's assessment and plan as written ,documented as a scribe. Based on total visit time, I have performed more than 50% of the visit. Any additional findings or plans will be noted. Objective - Vital Signs Vital signs: Vital Signs Temp 98.3 F 08/07/24 12:17 Pulse 94 08/07/24 12:17 Resp 20 08/07/24 12:17 BP 129/71 08/07/24 12:17 Pulse Ox 99 08/07/24 12:17 FiO2 Intake & Output 08/06/24 08/07/24 08/07/24 18:59 06:59 18:59 Intake Total 1260 480 Output Total 450 550 200 Balance 810 -70 -200 Weight 90.718 kg Intake: Oral 1260 480 Output: Urine 450 550 200 Other: Voiding Method Indwelling Catheter Indwelling Catheter Indwelling Catheter # Bowel Movements 4 1 - Labs CBC & Chem 7: 08/07/24 02:00 08/07/24 08:58 Labs: Abnormal Lab Results - Last 24 Hours (Table) 08/06/24 08/07/24 08/07/24 Range/Units 20:56 02:00 02:00 RBC 3.58 L (4.30-5.90) m/uL Hgb 11.2 L (13.0-17.5) gm/dL Hct 34.9 L (39.0-53.0) % Lymphocytes # 0.9 L (1.0-4.8) k/uL Sodium 134 L (137-145) mmol/L Potassium 3.1 L 3.2 L (3.5-5.1) mmol/L Carbon Dioxide 21 L (22-30) mmol/L BUN 3 L (9-20) mg/dL Creatinine 0.42 L (0.66-1.25) mg/dL Magnesium 1.4 L (1.6-2.3) mg/dL 08/07/24 Range/Units 02:00 RBC (4.30-5.90) m/uL Hgb (13.0-17.5) gm/dL Hct (39.0-53.0) % Lymphocytes # (1.0-4.8) k/uL Sodium (137-145) mmol/L Potassium 3.2 L (3.5-5.1) mmol/L Carbon Dioxide (22-30) mmol/L BUN (9-20) mg/dL Creatinine (0.66-1.25) mg/dL Magnesium (1.6-2.3) mg/dL Microbiology - Last 24 Hours (Table) 08/05/24 16:30 Urine Culture - Preliminary Urine,Catheterized Presumptive Staph aureus 08/05/24 15:03 Blood Culture - Preliminary Blood
[2024-08-08 08:27] LABS: ALT 20 U/L (10-49); AST 23 U/L (14-35); Albumin 2.3 g/dL (3.8-4.9); Albumin/Globulin Ratio 1.05 Ratio (1.60-3.17); Alkaline Phosphatase 127 U/L (41-126); BUN/Creat Ratio 14.25 Ratio (12.00-20.00); Blood Urea Nitrogen 5.7 mg/dL (9.0-27.0); Calcium 8.1 mg/dL (8.7-10.3); Carbon Dioxide 21.6 mmol/L (21.6-31.8); Chloride 111 mmol/L (96-109); Globulin 2.2 g/dL (1.6-3.3); Glucose 86 mg/dL (70-110); Magnesium 1.5 mg/dL (1.5-2.4); Potassium 3.4 mmol/L (3.5-5.5); Sodium 142 mmol/L (135-145); Total Bilirubin 0.3 mg/dL (0.3-1.2); Total Protein 4.5 g/dL (6.2-8.2)
[2024-08-08 08:51] LABS: Basophils # (A) 0.04 X 10*3/uL (0.00-0.10); Basophils % (A) 0.8 %; Eosinophils # (A) 0.31 X 10*3/uL (0.04-0.35); Eosinophils % (A) 6.5 %; HCT 31.1 % (39.6-50.0); HGB 10.3 g/dL (13.0-17.0); Lymphocytes # (A) 1.28 X 10*3/uL (0.90-5.00); Lymphocytes % (A) 26.7 %; MCH 31.2 pg (27.0-32.0); MCHC 33.1 g/dL (32.0-37.0); MCV 94.2 FL (80.0-97.0); Mean Platelet Volume 9.9 FL (9.5-12.2); Monocytes % (A) 12.5 %; NRBC Per 100 WBC 0 X 10*3/uL (0.00-0.01); Neutrophils # (A) 2.55 X 10*3/uL (1.80-7.70); Neutrophils % (A) 53.1 %; Platelet Count 454 X 10*3/uL (140-440); RDW 14.9 % (11.5-14.5)
--- NOTE | 2024-08-08 09:50 | P.PN ---
Subjective Progress Note Date: 08/07/24 Patient was seen for a follow-up. Patient continues to be very confused. Patient laying diagonally in the bed. He is yelling in for loud voice "Hey Lauro! I'm upstairs". Patient denies headache. Objective - Vital Signs Vital signs: Vital Signs Temp 97.8 F 08/07/24 14:33 Pulse 94 08/07/24 14:33 Resp 17 08/07/24 14:33 BP 110/72 08/07/24 14:33 Pulse Ox 98 08/07/24 14:33 FiO2 Intake & Output 08/06/24 08/07/24 08/07/24 18:59 06:59 18:59 Intake Total 1260 480 240 Output Total 450 550 200 Balance 810 -70 40 Weight 90.718 kg Intake: Oral 1260 480 240 Output: Urine 450 550 200 Other: Voiding Method Indwelling Catheter Indwelling Catheter Indwelling Catheter # Bowel Movements 4 1 3 - Exam Patient continues to be very confused. He states the month is February and the year is or . He knows that he is in [place] but believes it is a high school or something. Speech and language functions otherwise normal. No dysarthria. Patient continues to have significant ataxia of the upper limbs for [id number] testing. - Labs CBC & Chem 7: 08/08/24 05:56 08/08/24 05:56 Labs: Abnormal Lab Results - Last 24 Hours (Table) 08/06/24 08/07/24 08/07/24 Range/Units 20:56 02:00 02:00 RBC 3.58 L (4.30-5.90) m/uL Hgb 11.2 L (13.0-17.5) gm/dL Hct 34.9 L (39.0-53.0) % Lymphocytes # 0.9 L (1.0-4.8) k/uL Sodium 134 L (137-145) mmol/L Potassium 3.1 L 3.2 L (3.5-5.1) mmol/L Carbon Dioxide 21 L (22-30) mmol/L BUN 3 L (9-20) mg/dL Creatinine 0.42 L (0.66-1.25) mg/dL Magnesium 1.4 L (1.6-2.3) mg/dL 08/07/24 Range/Units 02:00 RBC (4.30-5.90) m/uL Hgb (13.0-17.5) gm/dL Hct (39.0-53.0) % Lymphocytes # (1.0-4.8) k/uL Sodium (137-145) mmol/L Potassium 3.2 L (3.5-5.1) mmol/L Carbon Dioxide (22-30) mmol/L BUN (9-20) mg/dL Creatinine (0.66-1.25) mg/dL Magnesium (1.6-2.3) mg/dL Microbiology - Last 24 Hours (Table) 08/05/24 16:30 Urine Culture - Preliminary Urine,Catheterized Presumptive Staph aureus 08/05/24 15:03 Blood Culture - Preliminary Blood Assessment and Plan Assessment: * Altered mental status, with rapidly progressive cognitive impairment, since April 2024. Rule out superimposed delirium from UTI. * Ataxia in the upper and lower limbs, unclear cause. Patient has not been able to walk since April 2024. * History of head/neck cancer * Hard of hearing * Hyperlipidemia * Coronary artery disease * Possible UTI. * Previous history of alcoholism Plan: * Patient continues to be very confused. I spoke to patient's on the phone, who states that patient lives with her. Patient's mother Amanda has passed a very long time ago. Patient does have a granddaughter who is also name Amanda, who lives a few blocks away and patient may be mixing up granddaughter Amanda with his mother. She mentions that prior to April patient was perfectly fine mentally and physically, was able to walk without difficulty. In April he was hospitalized to [facility] for altered mental status. He was diagnosed with metabolic encephalopathy. He has not been fine since then. His cognitive functions have declined significantly, and also has not been able to walk. She mentions that patient did have history of heavy alcoholism in the past, but he has not drank alcohol for years. * EEG was performed, which was abnormal due to presence of background disorganization and slowing, suggestive of mild to moderate encephalopathy. No focal, lateralized or epileptiform activity was seen. * MRI of the brain with and without contrast revealing no evidence of intracranial mass, acute/subacute infarct or abnormal enhancement. Nonspecific white matter changes, likely related to small vessel ischemic disease. I personally reviewed MRI agree with the findings. * Await MRI of the cervical and lumbar spine because of ataxia and gait difficulty. * Patient is being treated with vancomycin for possible UTI. ID on board. * CT head and neck without contrast revealed no acute process. * Oncology also on board for his previous history of head and neck cancer. * CT of the chest and neck with contrast revealed no evidence for lymphadenopathy. Carotid bifurcation atherosclerotic plaque with 57% stenosis of the right. No significant stenosis on the left. Mild to moderate emphysem a. * Carotid Doppler was subsequently performed, which revealed less than 50% stenosis of bilateral carotid bifurcation. Right vertebral artery antegrade flow, left vertebral artery not able to visualize. * B12 763, B1 43(38-122), RBC folate 590 normal. Ammonia 16. TSH 0.509 normal * Continue thiamine, folic acid.
[2024-08-08] MEDS: POTASSIUM CHLORIDE ER 20 MEQ TAB.ER PO SCH (10:58)
[2024-08-08] MEDS: HYDROcodone/APAP 5-325MG 1 EACH TAB PO PRN (12:09)
[2024-08-08] MEDS: LORazepam 1 MG/0.5 ML VIAL IV PRN (13:30)
--- NOTE | 2024-08-08 15:38 | P.PN ---
Subjective Progress Note Date: 08/08/24 Principal diagnosis: Reason for follow-up is UTI Patient is a 64-year-old male with a past medical history significant for COPD hyperlipidemia coronary artery disease chronic indwelling Severino catheter for retention change in part of the before presented hospital admitted with mental status change and urine with MRSA prompting this consultation On today's evaluation that is 08/08/2024,the patient remains to be afebrile, patient is on room air not requiring supplemental oxygen and breathing comfortably in no distress patient is currently sleepy history provided mostly by the daughter at the bedside. The patient white count is 4.80 creatinine 0.4 repeat UA Negative with negative initial urine with MRSA Objective - Vital Signs Vital signs: Vital Signs Temp 98.3 F 08/08/24 12:39 Pulse 85 08/08/24 12:39 Resp 17 08/08/24 12:39 BP 153/74 08/08/24 12:39 Pulse Ox 99 08/08/24 12:39 FiO2 Intake & Output 08/07/24 08/08/24 08/08/24 18:59 06:59 18:59 Intake Total 290 60 360 Output Total 400 1275 Balance -110 -1215 360 Intake: Intake, IV Titration 50 Amount cefTRIAXone 1 gm In 50 Sodium Chloride 0.9% 50 ml @ 100 mls/hr IVPB Q24HR [facility] Rx#:[id number] Oral 240 60 360 Output: Urine 400 1275 Other: Voiding Method Indwelling Catheter Indwelling Catheter Indwelling Catheter # Bowel Movements 3 - Exam GENERAL DESCRIPTION: Middle-age male lying in bed in no distress RESPIRATORY SYSTEM: Unlabored breathing , decreased breath sounds at bases HEART: S1 S2 regular rate and rhythm , ABDOMEN: Soft , no tenderness EXTREMITIES: No edema feet - Labs CBC & Chem 7: 08/08/24 05:56 08/08/24 12:54 Labs: Abnormal Lab Results - Last 24 Hours (Table) 08/08/24 08/08/24 Range/Units 05:56 05:56 RBC 3.30 L (4.40-5.60) X 10*6/uL Hgb 10.3 L (13.0-17.0) g/dL Hct 31.1 L (39.6-50.0) % RDW 14.9 H (11.5-14.5) % Plt Count 454 H (140-440) X 10*3/uL Potassium 3.4 L (3.5-5.5) mmol/L Chloride 111 H (96-109) mmol/L BUN 5.7 L (9.0-27.0) mg/dL Creatinine 0.4 L (0.6-1.5) mg/dL Calcium 8.1 L (8.7-10.3) mg/dL Alkaline Phosphatase 127 H (41-126) U/L Total Protein 4.5 L (6.2-8.2) g/dL Albumin 2.3 L (3.8-4.9) g/dL Albumin/Globulin Ratio 1.05 L (1.60-3.17) Ratio Microbiology - Last 24 Hours (Table) 08/05/24 15:03 Blood Culture - Preliminary Blood 08/05/24 16:30 Urine Culture - Final Urine,Catheterized Methicillin resist S. aureus Assessment and Plan (1) Penicillin allergy Current Visit: Yes Status: Acute Code(s): Z88.0 - ALLERGY STATUS TO PENICILLIN SNOMED Code(s): 21821498 (2) MRSA (methicillin resistant staph aureus) culture positive Current Visit: Yes Status: Acute Code(s): Z22.322 - CARRIER OR SUSPECTED CARRIER OF METHICILLIN RESIS STAPH SNOMED Code(s): 434471112 (3) Urinary tract infection Current Visit: No Status: Acute Code(s): N39.0 - URINARY TRACT INFECTION, SITE NOT SPECIFIED SNOMED Code(s): 28513051 Plan: 1patient presented hospital with mental status changes which is likely multifactorial in this patient who did have a positive UA possible component of UTI not entirely excluded however patient do not have any elevated white count with a mental status changes that would qualify for symptomatic UTI with urine not showing MRSA with a question of possible colonization of the catheter versus true pathogen 2-patient repeat urine is currently clear may consider a total of 3-day course of vancomycin for possible cystitis as not behaving as a deep infection Daughter at the bedside multiple question answered Dictation was produced using [employer] software. please excuse any grammatical, word or spelling errors. Time with Patient: Less than 30
[2024-08-08] MEDS ORDERED: Magnesium Replacement Protocol 1 EACH MISC MISCELLANE PRN (19:53)
[2024-08-08] MEDS: MAGNESIUM SULFATE-D5W PMX 1 GM in DEXTROSE/WATER 1 100ML.BAG IVPB ONE (21:03)
--- NOTE | 2024-08-08 23:06 | P.PN ---
Subjective Progress Note Date: 08/08/24 This is a 64-year-old male who was recently admitted with altered mental status with concerns of possible urinary tract infection has been started on antibiotics. Mental status mildly improved although waxes and wanes and patient is remaining somewhat confused and occasionally yelling out at staff and a ttempting to get out of bed. Patient with presumptive staph in the urine will consult infectious disease and appreciate input and recommendations. Patient is undergoing MRI of the brain with no significant changes noted and is also scheduled to undergo MRI of the cervix which is pending. Patient is afebrile with no reports of chest pain or shortness of breath. Patient did successfully pass bedside swallow recommending modified barium which is pending at this time as well. 08/08/2024 Patient is seen in follow-up today continues to was and wain on mentation although appears more calm and cooperative today. Patient chronic Severino maintained on IV antibiotics and has been transition to vancomycin per infectious disease. Urine cultures finalized with MRSA and will discuss with ID regarding discharge planning. Family plans on taking the patient home and does have home care arranged. Patient needs physical therapy for strength and mobility and per family at the bedside patient has been declining since April. Overall prognosis is guarded at this time. Potassium slightly improved at 3.9 post replacement and magnesium is 1.5 and being replaced. Will follow-up on repeat labs. Review of systems: Constitutional: No reports of fatigue, fever, or chills Cardiovascular: No reports of chest pain or palpitations Respiratory: No reports of shortness of breath or cough GI: No reports of nausea, no reports of vomiting, no diarrhea : No reports of dysuria or retention Neurovascular: reports of generalized weakness All medications have been reviewed PHYSICAL EXAMINATION: GENERAL: The patient is alert and oriented x1-2, continues to be mildly confused although more pleasant today, appears much older than stated age HEENT: Pupils are round and equally reacting to light. EOMI. no scleral icterus. No conjunctival pallor. Normocephalic, atraumatic. No pharyngeal erythema. No thyromegaly. CARDIOVASCULAR: S1 and S2 muffled PULMONARY: diminished breath sounds bilaterally with no wheezing or rhonchi noted. ABDOMEN: soft. Nontender on exam. obese. non-distended, normoactive bowel sounds. No palpable organomegaly. MUSCULOSKELETAL: No joint swelling or deformity. EXTREMITIES: No cyanosis, clubbing, or pedal edema. NEUROLOGICAL: Gross neurological examination did not reveal any focal deficits. Diffuse weakness SKIN: No rashes. Scabs and wounds noted to bilateral knees with no surrounding redness or cellulitis noted. Assessment: Change in mental status, acute metabolic encephalopathy possibly secondary to acute urinary tract infection, present on admission Acute urinary tract infection, present on admission with cultures showing MRSA, likely secondary to chronic indwelling Severino catheter Hyponatremia, improved History of tonsillar cancer status post radiation History of coronary artery disease Chronic obstructive pulmonary disease, not in exacerbation History of degenerative joint disease Gait dysfunction with generalized weakness GI prophylaxis DVT prophylaxis Full code Plan: Recommend to continue with current medications and management with neurology following. Patient underwent brain MRI with no acute abnormal findings noted. Patient scheduled to undergo MRI of the cervical spine which is pending at this time. Patient continues to be confused although more calm and cooperative today, continue Seroquel and will also use during the day day as needed. Continue on antibiotics and with infectious disease following. Antibiotics have been transitioned to vancomycin due to MRSA in the urine. Will discuss further regarding discharge antibiotics Follow-up on labs in the a.m. and replace electrolytes per protocol Patient needs PT/OT therapy and per family at the bedside. That is arranged in the outpatient setting and will continue with that as well as home care on discharge. Due to multiple complex medical issues, prognosis is guarded. Discussed possible discharge planning in the next 24 hours. The impression and plan of care has been dictated by Tamela Brown, nurse practitioner as directed. Dr. Shai MD I have performed a history and examination and MDM of this patient, discussed the same with the dictator, and agree with the dictator's assessment and plan as written ,documented as a scribe. Based on total visit time, I have performed more than 50% of the visit. Any additional findings or plans will be noted. Objective - Vital Signs Vital signs: Vital Signs Temp 98.7 F 08/08/24 19:11 Pulse 88 08/08/24 19:11 Resp 13 08/08/24 13:38 BP 116/63 08/08/24 19:11 Pulse Ox 98 08/08/24 19:11 FiO2 Intake & Output 08/08/24 08/08/24 08/09/24 06:59 18:59 06:59 Intake Total 60 3180 Output Total 1275 900 Balance -1215 2280 Intake: Oral 60 3180 Output: Urine 1275 900 Other: Voiding Method Indwelling Catheter Indwelling Catheter - Labs CBC & Chem 7: 08/08/24 05:56 08/08/24 12:54 Labs: Abnormal Lab Results - Last 24 Hours (Table) 08/08/24 08/08/24 Range/Units 05:56 05:56 RBC 3.30 L (4.40-5.60) X 10*6/uL Hgb 10.3 L (13.0-17.0) g/dL Hct 31.1 L (39.6-50.0) % RDW 14.9 H (11.5-14.5) % Plt Count 454 H (140-440) X 10*3/uL Potassium 3.4 L (3.5-5.5) mmol/L Chloride 111 H (96-109) mmol/L BUN 5.7 L (9.0-27.0) mg/dL Creatinine 0.4 L (0.6-1.5) mg/dL Calcium 8.1 L (8.7-10.3) mg/dL Alkaline Phosphatase 127 H (41-126) U/L Total Protein 4.5 L (6.2-8.2) g/dL Albumin 2.3 L (3.8-4.9) g/dL Albumin/Globulin Ratio 1.05 L (1.60-3.17) Ratio Microbiology - Last 24 Hours (Table) 08/05/24 15:03 Blood Culture - Preliminary Blood 08/05/24 16:30 Urine Culture - Final Urine,Catheterized Methicillin resist S. aureus
[2024-08-09 07:36] LABS: African American GFR (CKD) >90 (>60 ml/min/1.73 sqM); Anion Gap 4 mmol/L; Blood Urea Nitrogen 8 mg/dL (9-20); Calcium 8.2 mg/dL (8.4-10.2); Carbon Dioxide 22 mmol/L (22-30); Chloride 112 mmol/L (98-107); Glucose 81 mg/dL (74-99); Magnesium 1.8 mg/dL (1.6-2.3); Non-African American GFR(CKD) >90 (>60 ml/min/1.73 sqM); Potassium 3.8 mmol/L (3.5-5.1); Sodium 138 mmol/L (137-145)
--- NOTE | 2024-08-09 08:40 | MR ---
EXAMINATION TYPE: MR cspine/lspine wo con DATE OF EXAM: 08/08/2024 2:54 PM COMPARISON: None. CLINICAL INDICATION: Male, 64 years old with history of Ataxia, Unable to walk, hx head and neck canc er. TECHNIQUE: Multiplanar MultiSpin echo imaging of the cervical spine was performed. There is curvature of the cervical spine convex to the left. FINDINGS: C2-C3: No evidence for degenerative disc disease. No disc bulge/herniation or protrusion. No Canal stenosis. Foramina are patent bilaterally. C3-C4: Mild to moderate decreased signal and loss of height compatible with degenerative disc disease . There is mild posterior disc bulge without herniation or protrusion. No central stenosis seen. No C anal stenosis. Foramina are patent bilaterally. C4-C5: Mild to moderate decreased signal and loss of height compatible with degenerative disc disease . There is mild posterior disc bulge without herniation or protrusion. No central stenosis seen. Fora krystin are patent bilaterally. C5-C6: Mild to moderate decreased signal and loss of height compatible with degenerative disc disease . There is mild posterior disc bulge without herniation or protrusion. No central stenosis. Mild to m oderate bilateral neural foraminal encroachment. C6-C7: Mild to moderate decreased signal and loss of height compatible with degenerative disc disease . Posterior disc bulge with mild central stenosis. [id number] bilateral foraminal encroachment. C7-T1: No evidence for degenerative disc disease. No disc bulge/herniation or protrusion. No Canal stenosis. Foramina are patent bilaterally. Cervical segments are intact. There is normal alignment. Cervical spinal cord is of normal signal. Craniovertebral junction relationships are within normal limits. IMPRESSION: 1. Multilevel degenerative disc disease with a mild stenosis suggested at C6-C7. Foraminal encroachme nt as outlined above. EXAMINATION TYPE: MR pedroine/katharine wo con DATE OF EXAM: 08/08/2024 2:54 PM COMPARISON: None. CLINICAL INDICATION: Male, 64 years old with history of Ataxia, Unable to walk, hx head and neck canc er. TECHNIQUE: Multiplanar, MultiSpin echo imaging of the lumbar spine was performed. FINDINGS: L1-L2: Normal disc appearance without desiccation. No herniation, protrusion or disc bulging. No ca nal stenosis is present. Foramina are patent bilaterally. L2-L3: Normal disc appearance without desiccation. No herniation, protrusion or disc bulging. No ca nal stenosis is present. Foramina are patent bilaterally. L3-L4: Mild decreased signal and loss of height compatible degenerative disc disease. Ventral spondyl osis. No herniation, protrusion or disc bulging. No canal stenosis is present. Foramina are patent bilaterally. L4-L5: Normal disc appearance without desiccation. No herniation, protrusion or disc bulging. Mild d ecreased signal and loss of height compatible with degenerative disc disease. Posterior disc bulge wi th constriction of the thecal sac and borderline stenosis. There is mild bilateral neural foraminal e ncroachment. L5-S1: Normal disc appearance without desiccation. No herniation, protrusion or disc bulging. No ca nal stenosis is present. Foramina are patent bilaterally. Lumbar segments are intact. No paraspinal masses are identified. Conus medullaris has a normal appe arance. IMPRESSION: 1. Generative disc disease as noted above. 2. Disc bulging with borderline central stenosis at L4-5. See above. [facility], , 08/09/2024 8:38 AM
[2024-08-09] MEDS ORDERED: ZINC OXIDE PASTE (Z-GUARD) 1 APPLIC TOPICAL PRN (10:28)
[2024-08-09 11:01] LABS: Basophils # (A) 0.06 X 10*3/uL (0.00-0.10); Basophils % (A) 1.5 %; Eosinophils # (A) 0.36 X 10*3/uL (0.04-0.35); Eosinophils % (A) 8.9 %; HCT 30.3 % (39.6-50.0); HGB 9.9 g/dL (13.0-17.0); Lymphocytes # (A) 1.46 X 10*3/uL (0.90-5.00); Lymphocytes % (A) 36.1 %; MCH 31.6 pg (27.0-32.0); MCHC 32.7 g/dL (32.0-37.0); MCV 96.8 FL (80.0-97.0); Mean Platelet Volume 9.8 FL (9.5-12.2); Monocytes # (A) 0.43 X 10*3/uL (0.20-1.00); Monocytes % (A) 10.6 %; NRBC Per 100 WBC 0 X 10*3/uL (0.00-0.01); Neutrophils % (A) 42.2 %; Platelet Count 454 X 10*3/uL (140-440); RBC 3.13 X 10*6/uL (4.40-5.60); RDW 15.3 % (11.5-14.5); WBC 4.04 X 10*3/uL (4.50-10.00)
[2024-08-09] MEDS: VANCOMYCIN TROUGH DUE 1 EACH MISC MISCELLANE ONE (11:40)
[2024-08-09 14:03] VITALS: BP 101/71; PULSE 90; RESP 21; TEMP 97.9
--- NOTE | 2024-08-09 15:31 | P.PN ---
Subjective Progress Note Date: 08/08/24 Patient was seen for a follow-up. Patient continues to be very confused. Patient is not yelling today. He appears somewhat comfortable. Please refer to examination below. Offers no complaints. Objective - Vital Signs Vital signs: Vital Signs Temp 98.9 F 08/08/24 13:38 Pulse 88 08/08/24 13:38 Resp 13 08/08/24 13:38 BP 106/65 08/08/24 13:38 Pulse Ox 98 08/08/24 13:38 FiO2 Intake & Output 08/07/24 08/08/24 08/08/24 18:59 06:59 18:59 Intake Total 290 60 900 Output Total 400 1275 Balance -110 -1215 900 Intake: Intake, IV Titration 50 Amount cefTRIAXone 1 gm In 50 Sodium Chloride 0.9% 50 ml @ 100 mls/hr IVPB Q24HR [facility] Rx#:[id number] Oral 240 60 900 Output: Urine 400 1275 Other: Voiding Method Indwelling Catheter Indwelling Catheter Indwelling Catheter # Bowel Movements 3 - Exam Patient continues to be confused, states it is October 18, 2024, and he thinks that he is at his home. He is very hard of hearing. He states that he is in [place] and [place]. He believes Mr. Yovanny Ferreira is the current president. Speech and language functions otherwise normal. No dysarthria. - Labs CBC & Chem 7: 08/09/24 06:59 08/09/24 06:59 Labs: Abnormal Lab Results - Last 24 Hours (Table) 08/08/24 08/08/24 Range/Units 05:56 05:56 RBC 3.30 L (4.40-5.60) X 10*6/uL Hgb 10.3 L (13.0-17.0) g/dL Hct 31.1 L (39.6-50.0) % RDW 14.9 H (11.5-14.5) % Plt Count 454 H (140-440) X 10*3/uL Potassium 3.4 L (3.5-5.5) mmol/L Chloride 111 H (96-109) mmol/L BUN 5.7 L (9.0-27.0) mg/dL Creatinine 0.4 L (0.6-1.5) mg/dL Calcium 8.1 L (8.7-10.3) mg/dL Alkaline Phosphatase 127 H (41-126) U/L Total Protein 4.5 L (6.2-8.2) g/dL Albumin 2.3 L (3.8-4.9) g/dL Albumin/Globulin Ratio 1.05 L (1.60-3.17) Ratio Microbiology - Last 24 Hours (Table) 08/05/24 15:03 Blood Culture - Preliminary Blood 08/05/24 16:30 Urine Culture - Final Urine,Catheterized Methicillin resist S. aureus Assessment and Plan Assessment: * Altered mental status, with rapidly progressive cognitive impairment, since April 2024. Rule out superimposed delirium from UTI. * Ataxia in the upper and lower limbs, unclear cause. Patient has not been able to walk since April 2024. * History of head/neck cancer * Hard of hearing * Hyperlipidemia * Coronary artery disease * Possible UTI. * Previous history of alcoholism Plan: * All workup has been unremarkable as mentioned below. * EEG was performed, which was abnormal due to presence of background d isorganization and slowing, suggestive of mild to moderate encephalopathy. No focal, lateralized or epileptiform activity was seen. * MRI of the brain with and without contrast revealing no evidence of intracranial mass, acute/subacute infarct or abnormal enhancement. Nonspecific white matter changes, likely related to small vessel ischemic disease. I personally reviewed MRI agree with the findings. * MRI of the cervical spine revealed multilevel degenerative disc disease with a mild stenosis suggested at C6-C7. No abnormal cord signal. I personally reviewed MRI cervical spine and agree with the findings. * MRI of the lumbar spine revealed degenerative disc disease. Disc bulging with borderline central stenosis at L4-5. I personally reviewed MRI, agree with the findings. No significant spinal stenosis. * Patient is being treated with vancomycin for possible UTI. Infectious disease following patient. Patient received 3 days of vancomycin. * CT head and neck without contrast revealed no acute process. * Oncology also on board for his previous history of head and neck cancer. * CT of the chest and neck with contrast revealed no evidence for lymphadenopathy. Carotid bifurcation atherosclerotic plaque with 57% stenosis of the right. No significant stenosis on the left. Mild to moderate emphysema. * Carotid Doppler was subsequently performed, which revealed less than 50% stenosis of bilateral carotid bifurcation. Right vertebral artery antegrade flow, left vertebral artery not able to visualize. * B12 763, B1 43(38-122), RBC folate 590 normal. Ammonia 16. TSH 0.509 normal * Continue thiamine, folic acid.
[2024-08-09] MEDS ORDERED: VANCOMYCIN 1,500 MG in SODIUM CHLORIDE 0.9% 500 ML 500 ML IVPB SCH (21:00)
--- NOTE | 2024-08-09 21:29 | P.PN ---
Subjective Progress Note Date: 08/09/24 Principal diagnosis: Reason for follow-up is UTI Patient is a 64-year-old male with a past medical history significant for COPD hyperlipidemia coronary artery disease chronic indwelling Severino catheter for retention change in part of the before presented hospital admitted with mental status change and urine with MRSA prompting this consultation On today's evaluation that is 08/09/2024, the patient continues to be afebrile, the patient is on room air and breathing comfortably, the Pt currently sleepy not as restless as reported by the family bedside no vomiting or diarrhea has been reported. The patient white count is 4.04 creatinine 0.46 Vanco trough was 31.3 repeat UA is negative blood culture negative Objective - Vital Signs Vital signs: Vital Signs Temp 98 F 08/09/24 08:44 Pulse 94 08/09/24 08:51 Resp 14 08/09/24 08:51 BP 109/64 08/09/24 08:44 Pulse Ox 97 08/09/24 08:44 FiO2 Intake & Output 08/08/24 08/09/24 08/09/24 18:59 06:59 18:59 Intake Total 3180 600 0 Output Total 900 1700 Balance 2280 -1100 0 Intake: Intake, IV Titration 600 Amount Magnesium Sulfate-D5w Pmx 100 1 gm In Dextrose/Water 1 100ml.bag @ 100 mls/hr IVPB ONCE ONE Rx#: [id number] Vancomycin 1,500 mg In 500 Sodium Chloride 0.9% 500 ml 500 ml @ 167 mls/hr IVPB Q8H [facility] Rx#: [id number] Oral 3180 0 Output: Urine 900 1700 Other: Voiding Method Indwelling Catheter Indwelling Catheter Indwelling Catheter - Exam GENERAL DESCRIPTION: Middle-age male lying in bed in no distress RESPIRATORY SYSTEM: Unlabored breathing , decreased breath sounds at bases HEART: S1 S2 regular rate and rhythm , ABDOMEN: Soft , no tenderness EXTREMITIES: No edema feet - Labs CBC & Chem 7: 08/09/24 06:59 08/09/24 06:59 Labs: Abnormal Lab Results - Last 24 Hours (Table) 08/09/24 08/09/24 08/09/24 Range/Units 06:59 06:59 06:59 WBC 4.04 L (4.50-10.00) X 10*3/uL RBC 3.13 L (4.40-5.60) X 10*6/uL Hgb 9.9 L (13.0-17.0) g/dL Hct 30.3 L (39.6-50.0) % RDW 15.3 H (11.5-14.5) % Plt Count 454 H (140-440) X 10*3/uL Neutrophils # 1.70 L (1.80-7.70) X 10*3/uL Eosinophils # 0.36 H (0.04-0.35) X 10*3/uL Chloride 112 H (98-107) mmol/L BUN 8 L (9-20) mg/dL Creatinine 0.46 L (0.66-1.25) mg/dL Calcium 8.2 L (8.4-10.2) mg/dL Vancomycin Trough 31.3 H* ug/mL Microbiology - Last 24 Hours (Table) 08/05/24 15:03 Blood Culture - Preliminary Blood Assessment and Plan (1) Penicillin allergy Status: Acute Code(s): Z88.0 - ALLERGY STATUS TO PENICILLIN SNOMED Code(s): 36061177 (2) MRSA (methicillin resistant staph aureus) culture positive Status: Acute Code(s): Z22.322 - CARRIER OR SUSPECTED CARRIER OF METHICILLIN RESIS STAPH SNOMED Code(s): 248856579 (3) Urinary tract infection Status: Acute Code(s): N39.0 - URINARY TRACT INFECTION, SITE NOT SPECIFIED S NOMED Code(s): 37928781 Plan: 1patient presented hospital with mental status changes which is likely multifactorial in this patient who did have a positive UA possible component of UTI not entirely excluded however patient do not have any elevated white count with a mental status changes that would qualify for symptomatic UTI with urine not showing MRSA with a question of possible colonization of the catheter versus true pathogen 2-patient repeat urine is clear patient has received about 3-day course of vancomycin should be more than for a simple cystitis kidney function need to monitor closely keeping in mind his elevated Vanco trough though creatinine is normal today at 0.46 discussed with the FIELD STAFF MANAGER for admitting team Dictation was produced using [employer] software. please excuse any grammatical, word or spelling errors.
--- NOTE | 2024-08-10 14:46 | P.PN ---
Subjective Progress Note Date: 08/09/24 Patient was seen for a follow-up. Patient appears somewhat more calm, and speaking clearly. Still quite confused as per examination below. Patient states "I have 5 screws in my back that hurts". "Somebody screwed me together". 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 On 10/12/2023,repeat PET scan showed significant response. -CT chest and neck on 04/16/24, which showed overall stable disease. -Repeat CT chest/neck revealed stable disease, with no evidence of new mass/les ions or abnormal LAD Objective - Vital Signs Vital signs: Vital Signs Temp 97.9 F 08/09/24 12:53 Pulse 90 08/09/24 12:53 Resp 21 08/09/24 12:53 BP 101/71 08/09/24 12:53 Pulse Ox 97 08/09/24 12:53 FiO2 Intake & Output 08/08/24 08/09/24 08/09/24 18:59 06:59 18:59 Intake Total 3180 600 0 Output Total 900 1700 Balance 2280 -1100 0 Weight 90.718 kg Intake: Intake, IV Titration 600 Amount Magnesium Sulfate-D5w Pmx 100 1 gm In Dextrose/Water 1 100ml.bag @ 100 mls/hr IVPB ONCE ONE Rx#: [id number] Vancomycin 1,500 mg In 500 Sodium Chloride 0.9% 500 ml 500 ml @ 167 mls/hr IVPB Q8H [facility] Rx#: [id number] Oral 3180 0 Output: Urine 900 1700 Other: Voiding Method Indwelling Catheter Indwelling Catheter Indwelling Catheter - Exam Patient continues to be confused, states it is August and the year is 2018. He believes that he is in [place] or [place]. He does not know what city he is in. He states Yovanny Pace is the president. Patient's extraocular muscles are intact. Speech and language functions otherwise normal. No dysarthria. Patient continues to have moderate ataxia in the upper limbs, and mild ataxia in the lower limbs. - Labs CBC & Chem 7: 08/09/24 06:59 08/09/24 06:59 Labs: Abnormal Lab Results - Last 24 Hours (Table) 08/09/24 08/09/24 08/09/24 Range/Units 06:59 06:59 06:59 WBC 4.04 L (4.50-10.00) X 10*3/uL RBC 3.13 L (4.40-5.60) X 10*6/uL Hgb 9.9 L (13.0-17.0) g/dL Hct 30.3 L (39.6-50.0) % RDW 15.3 H (11.5-14.5) % Plt Count 454 H (140-440) X 10*3/uL Neutrophils # 1.70 L (1.80-7.70) X 10*3/uL Eosinophils # 0.36 H (0.04-0.35) X 10*3/uL Chloride 112 H (98-107) mmol/L BUN 8 L (9-20) mg/dL Creatinine 0.46 L (0.66-1.25) mg/dL Calcium 8.2 L (8.4-10.2) mg/dL Vancomycin Trough 31.3 H* ug/mL Microbiology - Last 24 Hours (Table) 08/05/24 15:03 Blood Culture - Preliminary Blood Assessment and Plan Assessment: * Altered mental status, with rapidly progressive cognitive impairment, since April 2024. Rule out superimposed delirium from UTI. * Ataxia in the upper and lower limbs, unclear cause. Patient has not been able to walk since April 2024. * History of head/neck cancer * Hard of hearing * Hyperlipidemia * Coronary artery disease * Possible UTI. * Previous history of alcoholism Plan: * All workup has been unremarkable as mentioned below. * EEG was performed, which was abnormal due to presence of background disorganization and slowing, suggestive of mild to moderate encephalopathy. No focal, lateralized or epileptiform activity was seen. * MRI of the brain with and without contrast revealing no evidence of intracran ial mass, acute/subacute infarct or abnormal enhancement. Nonspecific white matter changes, likely related to small vessel ischemic disease. I personally reviewed MRI agree with the findings. * MRI of the cervical spine revealed multilevel degenerative disc disease with a mild stenosis suggested at C6-C7. No abnormal cord signal. I personally reviewed MRI cervical spine and agree with the findings. * MRI of the lumbar spine revealed degenerative disc disease. Disc bulging with borderline central stenosis at L4-5. I personally reviewed MRI, agree with the findings. No significant spinal stenosis. * Patient has been treated with 3 days treatment with vancomycin for possible UTI. Infectious disease following patient. Patient now off antibiotics. * CT head and neck without contrast revealed no acute process. * Oncology also on board for his previous history of head and neck cancer. * CT of the chest and neck with contrast revealed no evidence for lymphadenopathy. Carotid bifurcation atherosclerotic plaque with 57% stenosis of the right. No significant stenosis on the left. Mild to moderate emphysema. * Carotid Doppler was subsequently performed, which revealed less than 50% stenosis of bilateral carotid bifurcation. Right vertebral artery antegrade flow, left vertebral artery not able to visualize. * B12 763, B1 43(38-122), RBC folate 590 normal. Ammonia 16. TSH 0.509 normal * Continue thiamine, folic acid. * Patient going to home today by ambulance at 4 PM.
--- NOTE | 2024-08-11 13:30 | P.DS ---
Providers Date of admission: 08/03/24 22:31 Expected date of discharge: 08/09/24 Attending physician: Cherelle Sharma MD Consults: 08/04/24 15:47 Consult Physician Routine Consulting Provider: Stacey Jennings Consult Reason/Comments: known Do you want consulting provider notified?: Yes 08/05/24 11:44 Consult Physician Routine Consulting Provider: Chelsi Lopez Consult Reason/Comments: AMS Do you want consulting provider notified?: Yes 08/07/24 14:40 Consult Physician Urgent Consulting Provider: Gena Lomas Consult Reason/Comments: ams, uti, presump staph aureus in urine Do you want consulting provider notified?: Yes Primary care physician: Jamel Rg Hospital Course: Final diagnosis Change in mental status, acute metabolic encephalopathy possibly secondary to acute urinary tract infection, present on admission Acute urinary tract infection, present on admission with cultures showing MRSA, likely secondary to chronic indwelling Severino catheter Hyponatremia, improved History of tonsillar cancer status post radiation History of coronary artery disease Chronic obstructive pulmonary disease, not in exacerbation Ataxia with upper and lower extremity weakness, mostly bedbound since April 2024 per family History of degenerative joint disease Gait dysfunction with generalized weakness Previous alcohol abuse history, quit 2 years ago GI prophylaxis DVT prophylaxis Full code Discharge disposition Patient is being discharged in a stable condition with guarded prognosis to home home care. Patient will follow-up with Dr. Rg in the outpatient setting upon discharge. Patient is to continue with current medication changes and outpatient follow-up with neurology and orthopedics as scheduled. Total time taken is greater than 35 minutes. Hospital course This is a 64-year-old male who was recently admitted with increased altered mental status likely acute metabolic encephalopathy secondary to urinary tract infection. Patient with chronic indwelling Severino catheter since April per family as patient has been in and out of rehab with inability to ambulate and generalized clinical decline. Patient significant alcohol abuse quit 2 years ago and has been declining since. Patient urine cultures finalized with MRSA and has received 3 doses of vancomycin per ID recommendations and will not require antibiotics on discharge. Recommend Severino catheter care and home care on discharge. Overall prognosis is guarded at this time. Please refer to other consultation notes for further HPI and recommend outpatient follow-up with neurology and orthopedics. Currently no reports of chest pain, shortness of breath, or palpitations. Patient is afebrile. No reports of nausea or vomiting and patient is tolerating diet. Patient will be discharged today. Guarded prognosis and high risk for readmissions given significant comorbidities. Family discussing palliative care versus possible hospice. Physical exam: Gen: This is a 64-year-old male who is awake, alert and oriented x 1, well- developed, elderly appearing, muscle wasting noted HEENT: Head is atraumatic, normocephalic. Pupils equal, round. Sclerae is anicteric. NECK: Supple. No JVD. No lymphadenopathy. No thyromegaly. LUNGS: Diminished breath sounds bilaterally otherwise clear to auscultation. No wheezes or rhonchi. No intercostal retractions. HEART: S1, S2 are muffled ABDOMEN: Soft. Bowel sounds are present. No masses. No tenderness. EXTREMITIES: No pedal edema. No calf tenderness. NEUROLOGICAL: Patient is awake, alert and oriented x1. Diffusely weak Please refer to medication reconciliation sheet for a list of medications. The impression and plan of care has been dictated by Tamela Brown, Nurse Practitioner as directed. Dr. Shai MD I have performed a history and examination and MDM of this patient, discussed the same with the dictator, and agree with the dictator's assessment and plan as written ,documented as a scribe. Based on total visit time, I have performed more than 50% of the visit. Patient Condition at Discharge: Fair Plan - Discharge Summary Discharge Rx Participant: No New Discharge Prescriptions: New Folic Acid 1 mg PO DAILY #30 tab Nicotine 14Mg/24Hr Patch [Habitrol] 1 patch TRANSDERM DAILY patch QUEtiapine [SEROquel] 25 mg PO HS #30 tab Multivitamins, Thera [Multivitamin (formulary)] 1 each PO DAILY #30 tab Thiamine [Vitamin B-1] 100 mg PO DAILY #30 tab Continue Omeprazole [PriLOSEC] 40 mg PO DAILY #14 cap Metoprolol Succinate [Metoprolol Succinate ER] 12.5 mg PO DAILY Ezetimibe [Zetia] 10 mg PO DAILY Aspirin EC [Ecotrin Low Dose] 81 mg PO DAILY hydrOXYzine HCL [Atarax] 25 mg PO Q8H PARoxetine HCL [Paxil] 10 mg PO DAILY Tamsulosin [Flomax] 0.4 mg PO DAILY Acetaminophen Tab [Tylenol] 650 mg PO Q6HR PRN tab PRN Reason: Mild Pain Or Fever > 100.5 Fluconazole [Diflucan] 200 mg PO DAILY gemfibroziL [Lopid] 600 mg PO BID Atorvastatin [Lipitor] 80 mg PO HS Lactulose [Constulose] 10 gm PO DAILY Changed HYDROcodone/APAP 10-325MG [[place] 10-325] 1 tab PO Q8H #0 Discharge Medication List Omeprazole [PriLOSEC] 40 mg PO DAILY #14 cap 12/18/19 [Rx] Ezetimibe [Zetia] 10 mg PO DAILY 05/23/23 [History] Metoprolol Succinate [Metoprolol Succinate ER] 12.5 mg PO DAILY 05/23/23 [History] gemfibroziL [Lopid] 600 mg PO BID 05/23/23 [History] Aspirin EC [Ecotrin Low Dose] 81 mg PO DAILY 07/08/24 [History] Atorvastatin [Lipitor] 80 mg PO HS 07/08/24 [History] Lactulose [Constulose] 10 gm PO DAILY 07/08/24 [History] PARoxetine HCL [Paxil] 10 mg PO DAILY 07/08/24 [History] Tamsulosin [Flomax] 0.4 mg PO DAILY 07/08/24 [History] hydrOXYzine HCL [Atarax] 25 mg PO Q8H 07/08/24 [History] Acetaminophen Tab [Tylenol] 650 mg PO Q6HR PRN tab 07/11/24 [Rx] Fluconazole [Diflucan] 200 mg PO DAILY 08/04/24 [History] Folic Acid 1 mg PO DAILY #30 tab 08/09/24 [Rx] HYDROcodone/APAP 10-325MG [[place] 10-325] 1 tab PO Q8H #0 08/09/24 [Rx] Multivitamins, Thera [Multivitamin (formulary)] 1 each PO DAILY #30 tab 08/09/24 [Rx] Nicotine 14Mg/24Hr Patch [Habitrol] 1 patch TRANSDERM DAILY patch 08/09/24 [Rx] QUEtiapine [SEROquel] 25 mg PO HS #30 tab 08/09/24 [Rx] Thiamine [Vitamin B-1] 100 mg PO DAILY #30 tab 08/09/24 [Rx] Follow up Appointment(s)/Referral(s): Yaw Martin DO [Doctor of Osteopathic Medicine] - 1 Week Margaret Caldera MD [Medical Doctor] - 1 Week Jamel Rg MD [Primary Care Provider] - 1-2 days (The office was not available to answer the phone please call and make follow up appointment.) [facility] [NON-STAFF] - 1 Week Patient Instructions/Handouts: Altered Mental Status (ED) Activity/Diet/Wound Care/Special Instructions: Activity until follow-up Follow up with your care provider Continue taking medications as prescribed Continue with Severino care Follow-up with neurology outpatient Follow-up with orthopedics outpatient Discharge Disposition: HOME WITH HOME HEALTH SERVICES
== END 2024-08-09 17:52 | disposition home health service (06) | DRG 698 ==
LOC: EC 20:59 → 5NMEDONC 22:30 → OBSVTOIN 22:31 → 5NMEDONC 08-04 06:44
PROVIDERS: ADMIT Internal Medicine; ATTEND Internal Medicine
DX: T83.511A Infection and inflammatory reaction due to indwelling urethral catheter, initial encounter (principal); G93.41 Metabolic encephalopathy; E46 Unspecified protein-calorie malnutrition; C76.0 Malignant neoplasm of head, face and neck; R18.8 Other ascites; E87.1 Hypo-osmolality and hyponatremia; B95.62 Methicillin resistant Staphylococcus aureus infection as the cause of diseases classified elsewhere; J44.9 Chronic obstructive pulmonary disease, unspecified; F10.21 Alcohol dependence, in remission; F32.A Depression, unspecified; K76.9 Liver disease, unspecified; R26.9 Unspecified abnormalities of gait and mobility; M62.50 Muscle wasting and atrophy, not elsewhere classified, unspecified site; M19.90 Unspecified osteoarthritis, unspecified site; E86.0 Dehydration; F41.9 Anxiety disorder, unspecified; E78.5 Hyperlipidemia, unspecified; N39.0 Urinary tract infection, site not specified; F17.210 Nicotine dependence, cigarettes, uncomplicated; H91.90 Unspecified hearing loss, unspecified ear; I25.10 Atherosclerotic heart disease of native coronary artery without angina pectoris; Z20.822 Contact with and (suspected) exposure to COVID-19; S80.212A Abrasion, left knee, initial encounter; Z74.01 Bed confinement status; Z79.82 Long term (current) use of aspirin; Z79.899 Other long term (current) drug therapy; Z88.0 Allergy status to penicillin; Z92.3 Personal history of irradiation; Z95.5 Presence of coronary angioplasty implant and graft; Z79.891 Long term (current) use of opiate analgesic; Z86.14 Personal history of Methicillin resistant Staphylococcus aureus infection
CPT/HCPCS: 36415; 70450; 70491; 70553; 71045; 71260; 72125; 72141; 72148; 74230; 76705; 80048; 80053; 80202; 80306; 80320; 81001; 81003; 82140; 83735; 84100; 84132; 84145; 84443; 84484; 85025; 85610; 85730; 87040; 87077; 87086; 87186; 87324; 87636; 93005; 93880; 95816; 96361; 96374; 96375; 96376; 99285